=== PATIENT | female | born 1945 | race Caucasian/White ===

== ENCOUNTER 2020-06-18 06:25 | Outpatient (REF) | payer MEDICARE, SELFPAY ==
[2020-06-18 13:18] LABS: MANUAL DIFF FLAG NO
[2020-06-18 13:29] LABS: Basophils Absolute Auto 0.1 X10*3/uL (0.0-0.2); Basophils Percent Auto 0.9 % (0-2); Eosinophils Absolute Auto 0.2 X10*3/uL (0.0-0.4); Eosinophils Percent Auto 3.1 % (0-4); Hematocrit 39.1 % (37-47); Hemoglobin 12.7 g/dl (12.0-16.0); Imm Gran Abs Auto 0.02 X10*3/uL (0.00-0.03); Imm Gran Pct Auto 0.3 % (0.0-0.4); Lymphocytes Absolute Auto 2.6 X10*3/uL (1.2-4.9); Lymphocytes Percent Auto 36.5 % (20-40); Mean Corpuscular HGB Conc 32.5 g/dl (31.0-35.0); Mean Corpuscular Hemoglobin 29.9 pg (27.0-33.0); Mean Platelet Volume 10.3 fL (9.4-12.3); Monocytes Absolute Auto 0.6 X10*3/uL (0.1-1.2); Monocytes Percent Auto 8.2 % (2-11); Neutrophils Absolute Auto 3.6 X10*3/uL (2.0-8.3); Platelet Count 398 X10*3/uL (160-400); Red Blood Count 4.25 X10*6/uL (4.20-5.50); Red Cell Distribution Width 13.5 % (11.0-16.0)
[2020-06-18 14:29] LABS: Alanine Aminotransferase 11 U/L (0-31); Albumin Level 4.4 g/dL (3.5-5.0); Alkaline Phosphatase 81 U/L (39-117); Anion Gap 18 (12-20); Aspartate Amino Transferase 17 U/L (5-31); Bilirubin Total 0.4 mg/dL (0.0-1.0); Blood Urea Nitrogen 38 mg/dL (9-16); Calcium 9.2 mg/dL (8.4-10.2); Carbon Dioxide 22 mmol/L (22-29); Chloride 106 mmol/L (96-108); Cholesterol 205 mg/dL; Estimated Glomerular Filt Rate 44; Glucose Fasting 89 mg/dL (60-99); HDL Cholesterol 60 mg/dL; LDL Cholesterol Calculated 124 mg/dl; Potassium 4.8 mmol/l (3.3-5.1); Sodium 141 mmol/L (135-145); Total Protein 7.6 g/dL (6.5-8.0); Triglycerides 109 mg/dL
== END 2020-06-18 06:26 | disposition home or self-care (01) ==
LOC: HO.HMGCLDS 06:25
PROVIDERS: PCP Internal Medicine; Visit Provider Internal Medicine
DX: I10 Essential (primary) hypertension (principal); M54.2 Cervicalgia; J44.9 Chronic obstructive pulmonary disease, unspecified
CPT/HCPCS: 36415; 80053; 80061; 85025

== ENCOUNTER 2020-12-21 09:54 | Outpatient (REF) | payer MEDICARE, SELFPAY ==
--- NOTE | ~2020-12-21 | XR_ITS ---
EXAMINATION: XR SHOULDER, BILATERAL CLINICAL INFORMATION: Pain. COMPARISON: None TECHNIQUE: 3 views each shoulder. FINDINGS: LEFT SHOULDER: There is loss of glenohumeral joint space with exuberant osteophytosis. The AC joint appears intact. Minimal loss of AC joint is noted. No fracture seen. There is no soft tissue abnormality. RIGHT SHOULDER: There is mild loss of glenohumeral joint space with moderate exuberant osteophytosis. No visible acute fracture or dislocation. There is mild loss of right AC joint with periarticular spurring. XR/XR shoulder LT min 2V IMPRESSION: Hypertrophic osteophytosis bilateral shoulder joints. 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 There is no acute fracture or lytic process.
--- NOTE | ~2020-12-21 | XR_ITS ---
EXAMINATION: XR SHOULDER, BILATERAL CLINICAL INFORMATION: Pain. COMPARISON: None TECHNIQUE: 3 views each shoulder. FINDINGS: LEFT SHOULDER: There is loss of glenohumeral joint space with exuberant osteophytosis. The AC joint appears intact. Minimal loss of AC joint is noted. No fracture seen. There is no soft tissue abnormality. RIGHT SHOULDER: There is mild loss of glenohumeral joint space with moderate exuberant osteophytosis. No visible acute fracture or dislocation. There is mild loss of right AC joint with periarticular spurring. XR/XR shoulder RT min 2V IMPRESSION: Hypertrophic osteophytosis bilateral shoulder joints. 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 There is no acute fracture or lytic process.
[2020-12-21 11:34] LABS: Hematocrit 40.5 % (37-47); Hemoglobin 13.3 g/dl (12.0-16.0)
[2020-12-21 11:57] LABS: Alanine Aminotransferase 14 U/L (0-31); Albumin Level 4.9 g/dL (3.5-5.0); Alkaline Phosphatase 79 U/L (39-117); Anion Gap 20 (12-20); Aspartate Amino Transferase 21 U/L (5-31); Bilirubin Direct 0.2 mg/dL (0.0-0.5); Bilirubin Total 0.5 mg/dL (0.0-1.0); Blood Urea Nitrogen 36 mg/dL (9-16); Calcium 10.7 mg/dL (8.4-10.2); Carbon Dioxide 22 mmol/L (22-29); Chloride 105 mmol/L (96-108); Estimated Glomerular Filt Rate 44; Glucose Random 101 mg/dL (60-115); Potassium 4.3 mmol/L (3.3-5.1); Sodium 143 mmol/L (135-145); Total Protein 8.2 g/dL (6.5-8.0)
[2020-12-28 12:22] LABS: Vitamin D 25-OH, D2 <4 ng/mL; Vitamin D 25-OH, D3 90 ng/mL; Vitamin D 25-OH, Total 90 ng/mL (30-100)
== END 2020-12-21 09:55 | disposition home or self-care (01) ==
LOC: HO.HMGCX 09:54
PROVIDERS: PCP Internal Medicine; Visit Provider Internal Medicine
DX: Z00.01 Encounter for general adult medical examination with abnormal findings (principal); I10 Essential (primary) hypertension; J44.9 Chronic obstructive pulmonary disease, unspecified; L29.9 Pruritus, unspecified; M54.2 Cervicalgia; M25.511 Pain in right shoulder; M25.512 Pain in left shoulder; N28.9 Disorder of kidney and ureter, unspecified
CPT/HCPCS: 36415; 73030; 80053; 80076; 82248; 82306; 85014; 85018

== ENCOUNTER 2020-12-24 10:05 | Outpatient (REF) | payer MEDICARE, SELFPAY ==
--- NOTE | ~2020-12-24 | MR_ITS ---
MR CERVICAL SPINE WITHOUT CONTRAST CLINICAL INFORMATION: Arthrodesis status. COMPARISON: Cervical spine MRI 06/02/2016. TECHNIQUE: MRI of the cervical spine was obtained using routine sequences without contrast. FINDINGS: Straightening of the cervical lordosis. The vertebral body heights are maintained. Large anterior bridging osteophytes at the C4-T2 levels. Vertebral body heights are maintained. There is severe disc volume loss at C6-C7. Disc calcification at C5-C6 and C7-T1. There is no bone marrow edema. There are no acute fractures. The cervical arterial flow voids are maintained. Retropharyngeal course of the cervical internal carotid arteries bilaterally. Partially imaged intracranial compartment demonstrates cerebral volume loss and chronic microangiopathy. C1-C2: Redemonstrated advanced hypertrophic degenerative changes involving the right lateral atlantoaxial articulation resulting in severe right-sided foraminal encroachment at C1-C2. C2-C3: Posterior disc contour normal. Bilateral facet arthropathy, greater on the right-sided uncovertebral joint spurring resulting in mild right-sided foraminal encroachment. C3-C4: Mild anterior subluxation. Advanced uncovertebral joint hypertrophy and hypertrophic facet arthropathy result in severe bilateral foraminal stenosis which is unchanged. No central canal stenosis. Stable appearing chronic myelomalacia throughout the cord at this level. C4-C5: Mild anterior subluxation. Disc osteophyte mildly narrows the central canal. Advanced uncovertebral joint hypertrophy and hypertrophic facet arthropathy result in stable moderate to severe bilateral foraminal stenosis. C5-C6: Disc osteophyte without central canal stenosis. Advanced uncovertebral joint hypertrophy and hypertrophic facet arthropathy result in stable moderate bilateral foraminal stenosis. C6-C7: Disc osteophyte without central canal stenosis. Advanced uncovertebral joint hypertrophy and hypertrophic facet arthropathy result in severe left and moderate right foraminal stenosis. C7-T1: Posterior disc contour is normal. Advanced bilateral facet arthropathy resulting in mild bilateral foraminal encroachment that is unchanged. MR/MR cervical spine wo con IMPRESSION: - Stable appearing advanced multilevel cervical spondylosis with advanced spondylitic changes resulting in varying degrees of moderate to severe foraminal stenosis throughout the cervical spine as described. No severe central canal stenosis within the cervical spine. - Redemonstrated advanced hypertrophic degenerative changes involving the right lateral atlantoaxial articulation resulting in severe right-sided foraminal encroachment at C1-C2. - Stable appearing chronic myelomalacia throughout the cervical spinal cord at C3-C4. No new cord signal changes. - Diffuse idiopathic skeletal hyperostosis throughout the cervicothoracic spine is again noted. - Retropharyngeal course of the cervical internal carotid arteries bilaterally.
== END 2020-12-24 10:06 | disposition home or self-care (01) ==
LOC: HO.MRI 10:05
PROVIDERS: Visit Provider Internal Medicine
DX: R26.89 Other abnormalities of gait and mobility (principal); Z98.1 Arthrodesis status
CPT/HCPCS: 72141

== ENCOUNTER → 2020-12-28 09:15 | Outpatient (BNVA) | payer MEDICARE, SELFPAY | PROVIDERS: PCP Internal Medicine; Visit Provider Physician Assistant | DX: M19.011 Primary osteoarthritis, right shoulder (principal); M19.012 Primary osteoarthritis, left shoulder | CPT/HCPCS: 99202 ==

== ENCOUNTER → 2021-01-11 11:01 | Outpatient (BNVA) | payer MEDICARE, SELFPAY | PROVIDERS: PCP Internal Medicine; Visit Provider Internal Medicine | DX: J44.9 Chronic obstructive pulmonary disease, unspecified (principal); Z79.899 Other long term (current) drug therapy | CPT/HCPCS: 99212 ==

== ENCOUNTER → 2021-01-13 09:23 | Outpatient (BNVA) | payer MEDICARE, SELFPAY | PROVIDERS: PCP Internal Medicine; Visit Provider Orthopaedic Surgery | DX: M19.011 Primary osteoarthritis, right shoulder (principal); M19.012 Primary osteoarthritis, left shoulder; J44.9 Chronic obstructive pulmonary disease, unspecified | CPT/HCPCS: 99212 ==

== ENCOUNTER 2021-04-04 13:40 | Outpatient (REF) | payer MEDICARE, SELFPAY ==
--- NOTE | ~2021-04-04 | XR_ITS ---
EXAMINATION: XR SOFT TISSUE NECK CLINICAL INDICATION: Acute pharyngitis. COMPARISON: None TECHNIQUE: 2 views of the soft tissue neck were obtained. FINDINGS: The airway is widely patent. The prevertebral and paravertebral soft tissues are normal. No soft tissue mass seen in the pharyngeal region either. There are degenerative disc changes and spondylosis throughout cervical spine. XR/XR soft tissue neck IMPRESSION: Widely patent airway. No soft tissue mass seen. The prevertebral soft tissues are normal.
== END 2021-04-04 13:41 | disposition home or self-care (01) ==
LOC: HO.HMGCX 13:40
PROVIDERS: PCP Internal Medicine; Visit Provider Hospitalist
DX: J02.9 Acute pharyngitis, unspecified (principal)
CPT/HCPCS: 70360

== ENCOUNTER 2021-04-13 06:21 | Inpatient (IN) | payer MEDICARE, SELFPAY ==
[2021-04-13] VITALS (8 sets, daily range): BP systolic 94–167; BP diastolic 56–83; PULSE 99–116; RESP 16–20; TEMP 36.1–36.9; O2SAT 95–100; BMI 36.8; BMI 19.1
--- NOTE | ~2021-04-13 | XR_ITS ---
EXAMINATION: PORTABLE CHEST 1 VIEW CLINICAL INFORMATION: shortness of breath . COMPARISON: Prior studies including the 06/02/2016 chest x-ray and the 12/21/2020 shoulder films. TECHNIQUE: Portable frontal view of the chest was obtained. FINDINGS: The lungs are well expanded. No focal infiltrate, effusion, edema, or pneumothorax. There is abnormal fullness in the left suprahilar region. This is a subtle finding but does appear to be more prominent compared to the 2016 chest x-ray. Underlying mass lesion in this location cannot be excluded. No acute bony abnormality seen. XR/XR chest 1V IMPRESSION: There is abnormal soft tissue fullness in the left suprahilar region abutting the aortic arch. Although this could be artifactual in nature an underlying mass lesion would be suspected. In this setting, dedicated CT scan of the chest would be recommended to evaluate this subtle finding further. This critical result was discussed with Dr. Alatorre at 04/13/2021 7:59 AM and it was ascertained that the content and urgency of the report was understood at the time of direct communication.
--- NOTE | ~2021-04-13 | CT_ITS ---
EXAMINATION: CT SOFT TISSUE NECK WITH CONTRAST CLINICAL INFORMATION: Sensation of a mass. Dyspnea. COMPARISON: The soft tissues of the neck x-ray March 2021. TECHNIQUE: Following the intravenous administration of 100 mL of Omnipaque 350 intravenous contrast, helical imaging was performed in the axial plane with generation of coronal and sagittal reformatted images. This CT examination was performed using dose optimization techniques as appropriate, variously including the following: *Automated exposure control *Adjustment of mA and/or kV according to patient size (this includes techniques or standardized protocols for targeted exams where dose is matched to indication/reason for exam; i.e. extremities or head) *Use of iterative reconstruction technique DLP: 421 mGy-cm. FINDINGS: The nasopharynx, oropharynx and hypopharynx are normal. The larynx is normal. The thyroid gland is normal. Salivary glands are normal. There are no enlarged lymph nodes seen. Visualized intracranial structures are normal. The orbits are normal. Paranasal sinuses, mastoid air cells and middle ears are clear. Vascular structures are normal. There is evidence of emphysema. There is a 1.2 cm spiculated left upper lobe nodule. There are enlarged mediastinal and left hilar lymph nodes. There are degenerative changes of the cervical spine. There are degenerative changes of the right shoulder. CT/CT soft tissue neck w con IMPRESSION: Emphysema, spiculated left upper lobe nodule and left hilar and mediastinal lymphadenopathy. Degenerative changes of the spine and right shoulder.
--- NOTE | ~2021-04-13 | CT_ITS ---
EXAMINATION: CT ANGIOGRAM OF THE CHEST WITH AND WITHOUT CONTRAST (CT PULMONARY ANGIOGRAM FOR PE) CLINICAL INFORMATION: Intermediate probable PE on VQ, need more defined exam. Tachycardia and dyspnea. COMPARISON: Previous chest CT with IV contrast from yesterday, nuclear medicine perfusion scan, chest x-ray and bilateral leg ultrasound from yesterday. TECHNIQUE: Prior to contrast administration, noncontrast localization images were obtained. Subsequently, multidetector volumetric imaging was performed from the thoracic inlet to below the diaphragms following the administration of 130 mL Omnipaque 350 intravenous contrast. Delayed images were performed. No contrast reaction reported. Sagittal, coronal, and MIP oblique sagittal reformatted images were obtained on the CT workstation, uploaded to PACS, and reviewed. This CT examination was performed using dose optimization techniques as appropriate, variously including the following: *Automated exposure control *Adjustment of mA and/or kV according to patient size (this includes techniques or standardized protocols for targeted exams where dose is matched to indication/reason for exam; i.e. extremities or head) *Use of iterative reconstruction technique Total exam dose-length product 222 mGy-cm FINDINGS: QUALITY OF STUDY/CONTRAST BOLUS: Satisfactory. PULMONARY ARTERIES: There is no large or central pulmonary embolism. There is a soft tissue mass encasing the distal left pulmonary artery, and left upper lobe and left lower lobe pulmonary arteries. The left upper and left lower lobe pulmonary artery branches appear narrowed. There is no opacification of the segmental left upper lobe pulmonary arteries on the current exam, however, these are better seen on yesterday's non-CTA exam. Left lower lobe pulmonary artery branches are patent. No evidence of right lung pulmonary embolism is seen. THORACIC AORTA: No aneurysm or dissection. LUNG: There is evidence of emphysema. There is a 1 cm spiculated left upper lobe nodule and surrounding smaller satellite nodules. The lungs are otherwise clear. PLEURA: No pleural effusion or pneumothorax. MEDIASTINUM: The heart size is normal. There is no pericardial effusion. There is extensive left-sided mediastinal and hilar lymphadenopathy similar to yesterday's exam abutting the great vessels, aortic arch, and left pulmonary arteries. CHEST WALL/AXILLA: No axillary or internal mammary lymphadenopathy. OSSEOUS STRUCTURES: There are degenerative changes of the spine. UPPER ABDOMEN: There is a cyst in the upper pole of the left kidney. The questioned right lobe liver lesion is not appreciated. No reflux of contrast into the hepatic veins to suggest elevated right heart pressures. CT/CT angio chest PE protocol IMPRESSION: There is encasement of the distal left pulmonary artery and left upper and left lower lobe pulmonary arteries by adenopathy/mass. The left upper lobe pulmonary arteries are not opacified on the current exam. These are better seen on yesterday's non-CTA and later images. There may be tumor involvement of the pulmonary arteries in the left upper lobe. No definite pulmonary embolism is seen.
--- NOTE | ~2021-04-13 | NM_ITS ---
EXAMINATION: PULMONARY PERFUSION STUDY CLINICAL INFORMATION: Tachycardia, dyspnea, evaluate for pulmonary embolism. COMPARISON: No previous lung scan is available for comparison. CT of the chest performed with intravenous contrast dated 04/13/2021, the same date as this lung scan is available for comparison. A radiograph the chest also dated 04/13/2021 is available for comparison. TECHNIQUE: Following the intravenous administration of 4.0 mCi Tc-99m MAA an 8-view perfusion study was performed using a dual detector gamma scintillation camera. No ventilation images were obtained. FINDINGS: Perfusion images: There is diffusely diminished activity in the left lung with almost absent activity present in the apical posterior segment of the left upper lobe. There is also markedly diminished activity in the basilar segments of the left lower lobe but preservation of most of the activity in the superior segment of the left lower lobe although this is less intense than the activity in the right lung. The contemporaneous CT scan of the chest shows diffuse emphysema, a spiculated left upper lobe pulmonary nodule and extensive predominantly left-sided mediastinal lymphadenopathy. NM/NM pul perfusion IMPRESSION: Intermediate probability of pulmonary embolism. Perfusion abnormalities are extensive in the left lung, but because of both the presence of the left upper lobe spiculated nodule and extensive mediastinal lymphadenopathy which causes some compression of the left sided proximal pulmonary arteries, these perfusion abnormalities may be due to either of the latter, but coexisting pulmonary emboli cannot be ruled out. No obvious pulmonary emboli are visualized on the contemporaneous CT scan, but this may not have been performed as a pulmonary embolism study.
--- NOTE | ~2021-04-13 | CT_ITS ---
EXAMINATION: CT CHEST WITH CONTRAST CLINICAL INFORMATION: Evaluate for mass. Dyspnea. COMPARISON: Previous chest x-ray from earlier the same day TECHNIQUE: Multidetector volumetric CT imaging of the chest was obtained after the administration of 100 mL of Omnipaque 350 intravenous contrast without immediate adverse reactions. Axial MIP volume rendering provided. Sagittal and coronal reformatted images were obtained. This CT examination was performed using dose optimization techniques as appropriate, variously including the following: *Automated exposure control *Adjustment of mA and/or kV according to patient size (this includes techniques or standardized protocols for targeted exams where dose is matched to indication/reason for exam; i.e. extremities or head) *Use of iterative reconstruction technique DLP: 294 mGy-cm FINDINGS: LUNGS: There is evidence of emphysema. There is a 1 cm spiculated left upper lobe nodule, axial image 60 series 9. There are adjacent smaller satellite nodules. There are small spicules that extend to the pleural surface and mild adjacent pleural thickening. There is volume loss to the left upper lobe. MEDIASTINUM: There are enlarged mediastinal and hilar lymph nodes. Largest roberto mass abuts the aortic arch and measures 1.8 x 6.8 cm in transverse and AP dimension. This is continuous with abnormal soft tissue/likely roberto mass in the left pulmonary hilum that measures approximately 5 x 5 x 6 cm. There is secondary narrowing of the left upper lobe and left lower lobe pulmonary arteries. There is some narrowing of the left upper pulmonary veins. There are smaller lymph nodes seen in the vascular space adjacent to the right brachiocephalic and left common carotid arteries measuring 1 cm and adjacent to the left common carotid and left subclavian artery measuring 8 mm. There is a small lymph node seen more superiorly posterior to the left carotid artery and adjacent to the left vertebral artery that measures 5 mm. There is a small precarinal lymph node that measures 5 mm. The heart does not appear enlarged. There is no pericardial effusion. The thoracic aorta is normal in caliber. There is evidence of atherosclerotic disease. There is calcification and mild narrowing at the origin of the great vessels. PLEURA: There is no pleural effusion. No pleural mass or thickening. AXILLA: No chest wall mass or enlarged axillary lymph nodes are seen. UPPER ABDOMEN: There is question of a 1 cm peripheral low-attenuation lesion in the right lobe of the liver axial image 59 series 7. This is adjacent to a rib and it is possible this is artifactual due to artifact from the rib. There is a small calcification high in the dome of the liver. There is a 1.8 cm cyst in the left kidney. OSSEOUS STRUCTURES: There are degenerative changes of the spine and shoulder joints. CT/CT chest w con IMPRESSION: Emphysema. Left upper lobe volume loss. 1 cm spiculated left upper lobe nodule neoplasm. Enlarged left hilar and mediastinal lymph nodes and narrowing of the left pulmonary arteries and veins. Question small liver lesion. Findings are suspicious for primary lung neoplasm, in particular small cell cancer.
--- NOTE | ~2021-04-13 | US_ITS ---
EXAMINATION: US VENOUS ULTRASOUND WITH DOPPLER LOWER EXTREMITY, BILATERAL CLINICAL INFORMATION: Pulmonary embolism. Leg pain. COMPARISON: None TECHNIQUE: Ultrasound of the deep veins is performed from the hip to the calf with compression sonography and color and pulse Doppler assessment. Spectral analysis with color-flow imaging is performed. FINDINGS: RIGHT: There is normal venous compression and respiratory variation and augmented flow. The visualized common femoral vein, superficial femoral vein, profunda femoral vein, popliteal vein, and the trifurcation region shows no evidence of deep venous thrombosis. There is no significant popliteal fossa cyst. LEFT: There is normal venous compression and respiratory variation and augmented flow. The visualized common femoral vein, superficial femoral vein, profunda femoral vein, popliteal vein, and the trifurcation region shows no evidence of deep venous thrombosis. There is no significant popliteal fossa cyst. US/US venous duplex LE BI IMPRESSION: No DVT demonstrated in the bilateral lower extremity.
--- NOTE | 2021-04-13 06:36 | ED.SOB ---
HPI - SOB/Dyspnea General Chief Complaint: General Medical Stated Complaint: SOB Time Seen by Provider: 04/13/21 06:36 Source: patient Mode of arrival: ambulatory Limitations: no limitations History of Present Illness MD elicited complaint: shortness of breath (something is stuck in her throat) Pertinent past history: COPD Onset (ago): week(s) (2) Context: other (had xray done for mass feeling - states it was negative) Timing: intermittent Severity: moderate Exacerbating factors: nothing Relieving factors: nothing Known history of: COPD Associated symptoms: denies other symptoms Treatment prior to arrival: none Related Data Home Medications Medication Instructions Recorded Confirmed albuterol sulfate 90 mcg/actuation 2 puff INHALATION Q4H PRN 04/13/21 04/13/21 aerosol inhaler (ProAir HFA) calcium carbonate 200 mg calcium 1 tab PO DAILY 04/13/21 04/13/21 (500 mg)-vitamin D3 400 unit tablet Previous Rx's Medication Instructions Recorded irbesartan 300 1 tab PO DAILY 90 Days #90 tab 01/17/21 mg-hydrochlorothiazide 12.5 mg tablet budesonide-formoterol HFA 160 2 puff PO BID #10.2 g 03/17/21 mcg-4.5 mcg/actuation aerosol inhaler (Symbicort) tizanidine 2 mg tablet 2 mg PO DAILY PRN #90 tab 03/18/21 tramadol 200 mg tablet,extended 200 mg PO DAILY 90 Days #90 tab 03/18/21 release 24 hr tiotropium bromide 18 mcg capsule 1 cap INHALATION DAILY #30 cap 04/08/21 with inhalation device (Spiriva with HandiHaler) Allergies Allergy/AdvReac Type Severity Reaction Status Date / Time No Known Allergies Allergy Verified 03/18/21 11:55 Review of Systems Review of Systems: Constitutional : No Fever, No Chills ENT/Mouth : No sore throat, No Rhinorrhea, No Swallowing Difficulty, pos mass like feeling Eyes: No Eye Pain, No Swelling, No Redness Cardiovascular : No Chest Pain, positive SOB, No Orthopnea, no Edema Respiratory : No Cough, No Sputum, No Wheezing, positive dyspnea Gastrointestinal : No Nausea, No Vomiting, No Diarrhea, No abdominal Pain, No Hematochezia, No Melena Genitourinary : No Dysuria, No Urinary Frequency, No Hematuria Musculoskeletal : No joint pain, No Myalgias Skin : No Skin Lesions, No rash Neuro : No Weakness, No Numbness, No Dizziness, No Headache Psych : No Anxiety/Panic, No Depression Heme/Lymph: No Bruising, No Lymphadenopathy Endocrine : No Polyuria, No Polydipsia All other systems reviewed and are negative [facility] Past Medical History Attestation statement: The following information was validated with the patient. Medical History Cervicalgia COPD, severe Hypertension, essential Nephropathy Surgical History History of cervical discectomy History of surgery Family History Family History Father No problems noted. Mother No problems noted. Brother No problems noted. Brother No problems noted. Sister No problems noted. Daughter No problems noted. Daughter No problems noted. Son No problems noted. Son No problems noted. Son No problems noted. Son No problems noted. Son No problems noted. Social History Social History Housing: Apartment Alcohol intake: current Alcohol intake frequency: a few times a month Patient Tobacco Use Status: Former Tobacco user Use of substances other than those prescribed or required for medical reasons: No Advance Directives: No Advance Directives Information Provided: No Current occupational status: retired Physical Exam Vital Signs: Vital Signs: Last Vital Signs Temp 98.3 F 04/13/21 12:28 Pulse 106 H 04/13/21 12:28 Resp 18 04/13/21 12:28 BP 153/72 H 04/13/21 12:28 Pulse Ox 97 04/13/21 12:28 Oxygen Flow Rate 3 04/13/21 06:35 Body Mass Index 19.1 Appearance: Alert. Oriented X3. No acute distress. Anxious Eyes: Pupils equal, round and reactive to light. ENT: Pharynx normal. no mass seen, tolerating secretions, no stridor Neck: Normal inspection. Neck supple. CVS: Normal heart rate and rhythm. Pulses normal. Respiratory: No respiratory distress. Breath sounds slightly diminished. Abdomen: Soft and non-tender. Skin: Skin warm and dry. Normal skin color. Normal skin turgor. Extremities: No lower extremity edema. No calf ttp Neuro: Oriented X 3. No motor deficit. No sensory deficit. Course Course Course Narrative: persistently tachycardic VQ scan ordered lactic acidosis likely due to albuterol use [employer] and not infection or severe sepsis intermediate VQ scan, will give dose of lovenos admit overnight and repeat CTA in AM fo PE given persistent tachycardia with new upper lung mass and no other source MDM - SOB/Dyspnea MDM Narrative Medical decision making narrative: 75 yo female with hx of COPD here with mass like feeling in throat x 2 weeks that is intermittent. Able to eat without issue, just woke up one day like this. At this time 100% on RA will obtain basic labs, CT neck soft tissue for mass. Dispo per results and findings. Lab Data Result diagrams: 04/13/21 06:30 04/13/21 06:30 Labs: Lab Results 04/13/21 04/13/21 04/13/21 Range/Units 06:30 06:30 06:30 WBC 9.5 (4.8-10.8) X10*3/uL RBC 4.25 (4.20-5.50) X10*6/uL Hgb 13.7 (12.0-16.0) g/dl Hct 41.0 (37-47) % MCV 96.5 (80-98) fL MCH 32.2 (27.0-33.0) pg MCHC 33.4 (31.0-35.0) g/dl RDW 13.7 (11.0-16.0) % Plt Count 413 H (160-400) X10*3/uL MPV 10.1 (9.4-12.3) fL Immature Gran % (Auto) 0.2 (0.0-0.4) % Neut % (Auto) 62.1 (45-73) % Lymph % (Auto) 26.5 (20-40) % Citrus % (Auto) 8.5 (2-11) % Eos % (Auto) 2.1 (0-4) % Baso % (Auto) 0.6 (0-2) % Lymph # (Auto) 2.5 (1.2-4.9) X10*3/uL [place] # (Auto) 0.8 (0.1-1.2) X10*3/uL Eos # (Auto) 0.2 (0.0-0.4) X10*3/uL Baso # (Auto) 0.1 (0.0-0.2) X10*3/uL Abs Immat Gran (auto) 0.02 (0.00-0.03) X10*3/uL Absolute Neuts (auto) 5.9 (2.0-8.3) X10*3/uL Absolute Nucleated RBC 0.000 (0.0-0.012) X10*3/uL Nucleated RBC % (auto) 0.0 (0.0-0.2) /100WBC Sodium 139 (135-145) mmol/L Potassium 4.3 (3.3-5.1) mmol/L Chloride 104 (96-108) mmol/L Carbon Dioxide 20 L (22-29) mmol/L Anion Gap 19 (12-20) BUN 34 H (9-16) mg/dL Creatinine 1.39 (0.5-1.4) mg/dL Estim Creat Clear Calc 50.7 Estimated GFR 37 Random Glucose 141 H D (60-115) mg/dL Lactic Acid Calcium 10.3 H (8.4-10.2) mg/dL Troponin I High Sens 4.7 (<3.5-17.0) ng/L B-Natriuretic Peptide 37 (<100) pg/mL Urine Color Urine Appearance Urine pH (5.0-8.0) Ur Specific [place] (1.005-1.025) Urine Protein (NEG-TRACE) MG/DL Urine Glucose (UA) (NEG) MG/DL Urine Ketones (NEG) MG/DL Urine Blood (NEG) Urine Nitrite (NEG) Ur Leukocyte Esterase (NEG) Urine RBC (0) /HPF Urine WBC (0-4) /HPF Ur Squamous Epith Cells /LPF Urine Bacteria /LPF Coronavirus (PCR) (Negative) Influenza Type A (PCR) (Negative) Influenza Type B (PCR) (Negative) RSV RNA Qual (PCR) (Negative) 04/13/21 04/13/21 04/13/21 Range/Units 07:06 09:25 10:53 WBC (4.8-10.8) X10*3/uL RBC (4.20-5.50) X10*6/uL Hgb (12.0-16.0) g/dl Hct (37-47) % MCV (80-98) fL MCH (27.0-33.0) pg MCHC (31.0-35.0) g/dl RDW (11.0-16.0) % Plt Count (160-400) X10*3/uL MPV (9.4-12.3) fL Immature Gran % (Auto) (0.0-0.4) % Neut % (Auto) (45-73) % Lymph % (Auto) (20-40) % Citrus % (Auto) (2-11) % Eos % (Auto) (0-4) % Baso % (Auto) (0-2) % Lymph # (Auto) (1.2-4.9) X10*3/uL [place] # (Auto) (0.1-1.2) X10*3/uL Eos # (Auto) (0.0-0.4) X10*3/uL Baso # (Auto) (0.0-0.2) X10*3/uL Abs Immat Gran (auto) (0.00-0.03) X10*3/uL Absolute Neuts (auto) (2.0-8.3) X10*3/uL Absolute Nucleated RBC (0.0-0.012) X10*3/uL Nucleated RBC % (auto) (0.0-0.2) /100WBC Sodium (135-145) mmol/L Potassium (3.3-5.1) mmol/L Chloride (96-108) mmol/L Carbon Dioxide (22-29) mmol/L Anion Gap (12-20) BUN (9-16) mg/dL Creatinine (0.5-1.4) mg/dL Estim Creat Clear Calc Estimated GFR Random Glucose (60-115) mg/dL Lactic Acid Cancelled Calcium (8.4-10.2) mg/dL Troponin I High Sens (<3.5-17.0) ng/L B-Natriuretic Peptide (<100) pg/mL Urine Color YELLOW Urine Appearance CLEAR Urine pH 5.5 (5.0-8.0) Ur Specific [place] 1.010 (1.005-1.025) Urine Protein NEG (NEG-TRACE) MG/DL Urine Glucose (UA) NEG (NEG) MG/DL Urine Ketones NEG (NEG) MG/DL Urine Blood NEG (NEG) Urine Nitrite NEG (NEG) Ur Leukocyte Esterase TRACE H (NEG) Urine RBC 0-2 (0) /HPF Urine WBC 1-4 (0-4) /HPF Ur Squamous Epith Cells TRACE /LPF Urine Bacteria TRACE /LPF Coronavirus (PCR) NEGATIVE (Negative) Influenza Type A (PCR) NEGATIVE (Negative) Influenza Type B (PCR) NEGATIVE (Negative) RSV RNA Qual (PCR) NEGATIVE (Negative) 04/13/21 Range/Units 10:53 WBC (4.8-10.8) X10*3/uL RBC (4.20-5.50) X10*6/uL Hgb (12.0-16.0) g/dl Hct (37-47) % MCV (80-98) fL MCH (27.0-33.0) pg MCHC (31.0-35.0) g/dl RDW (11.0-16.0) % Plt Count (160-400) X10*3/uL MPV (9.4-12.3) fL Immature Gran % (Auto) (0.0-0.4) % Neut % (Auto) (45-73) % Lymph % (Auto) (20-40) % Citrus % (Auto) (2-11) % Eos % (Auto) (0-4) % Baso % (Auto) (0-2) % Lymph # (Auto) (1.2-4.9) X10*3/uL [place] # (Auto) (0.1-1.2) X10*3/uL Eos # (Auto) (0.0-0.4) X10*3/uL Baso # (Auto) (0.0-0.2) X10*3/uL Abs Immat Gran (auto) (0.00-0.03) X10*3/uL Absolute Neuts (auto) (2.0-8.3) X10*3/uL Absolute Nucleated RBC (0.0-0.012) X10*3/uL Nucleated RBC % (auto) (0.0-0.2) /100WBC Sodium (135-145) mmol/L Potassium (3.3-5.1) mmol/L Chloride (96-108) mmol/L Carbon Dioxide (22-29) mmol/L Anion Gap (12-20) BUN (9-16) mg/dL Creatinine (0.5-1.4) mg/dL Estim Creat Clear Calc Estimated GFR Random Glucose (60-115) mg/dL Lactic Acid 2.3 H* Calcium (8.4-10.2) mg/dL Troponin I High Sens (<3.5-17.0) ng/L B-Natriuretic Peptide (<100) pg/mL Urine Color Urine Appearance Urine pH (5.0-8.0) Ur Specific [place] (1.005-1.025) Urine Protein (NEG-TRACE) MG/DL Urine Glucose (UA) (NEG) MG/DL Urine Ketones (NEG) MG/DL Urine Blood (NEG) Urine Nitrite (NEG) Ur Leukocyte Esterase (NEG) Urine RBC (0) /HPF Urine WBC (0-4) /HPF Ur Squamous Epith Cells /LPF Urine Bacteria /LPF Coronavirus (PCR) (Negative) Influenza Type A (PCR) (Negative) Influenza Type B (PCR) (Negative) RSV RNA Qual (PCR) (Negative) ECG Data Attestation: I personally reviewed and interpreted this ECG as follows: ECG interpretation date: 04/13/21 ECG interpretation time: 06:57 Interpretation: Rate: 109 Rhythm: sinus tachycardia [place]: normal Normal P waves. Normal ARUN. Normal QRS complex. ST T wave : no STEVE, nonspecific qTC: normal prior studies: no acute ischemia The study has been interpreted contemporaneously by me. . Discharge Plan Discharge Clinical Impression: Acute dyspnea, Tachycardia, Mass of left lung, Acidosis, lactic Patient Disposition: Admitted As Inpatient
--- NOTE | 2021-04-13 06:39 | ECG_ITS ---
Test Reason : SOB Blood Pressure : / mmHG Vent. Rate : 109 BPM Atrial Rate : 109 BPM P-R Int : 134 ms QRS Dur : 080 ms QT Int : 324 ms P-R-T Axes : 086 010 097 degrees QTc Int : 436 ms Sinus tachycardia Nonspecific ST and T wave abnormality Abnormal ECG When compared with ECG of 19-SEP-2014 05:55, Criteria for Septal infarct are no longer Present Nonspecific T wave abnormality no longer evident in Inferior leads Referred By: Generic ED Physician Electronically Signed By:LOREN TINEO
[2021-04-13 08:05] LABS: Influenza A PCR NEGATIVE (Negative); Influenza B PCR NEGATIVE (Negative); Resp Syncy Virus RNA Qual PCR NEGATIVE (Negative); SARS COV2 PCR INHOUSE NEGATIVE (Negative)
[2021-04-13 08:18] LABS: MANUAL DIFF FLAG NO
[2021-04-13 08:19] LABS: Basophils Absolute Auto 0.1 X10*3/uL (0.0-0.2); Basophils Percent Auto 0.6 % (0-2); Eosinophils Absolute Auto 0.2 X10*3/uL (0.0-0.4); Eosinophils Percent Auto 2.1 % (0-4); Hemoglobin 13.7 g/dl (12.0-16.0); Imm Gran Abs Auto 0.02 X10*3/uL (0.00-0.03); Imm Gran Pct Auto 0.2 % (0.0-0.4); Lymphocytes Absolute Auto 2.5 X10*3/uL (1.2-4.9); Lymphocytes Percent Auto 26.5 % (20-40); Mean Corpuscular HGB Conc 33.4 g/dl (31.0-35.0); Mean Corpuscular Hemoglobin 32.2 pg (27.0-33.0); Mean Corpuscular Volume 96.5 fL (80-98); Mean Platelet Volume 10.1 fL (9.4-12.3); Monocytes Absolute Auto 0.8 X10*3/uL (0.1-1.2); Monocytes Percent Auto 8.5 % (2-11); Neutrophils Absolute Auto 5.9 X10*3/uL (2.0-8.3); Neutrophils Percent Auto 62.1 % (45-73); Platelet Count 413 X10*3/uL (160-400); Red Blood Count 4.25 X10*6/uL (4.20-5.50); Red Cell Distribution Width 13.7 % (11.0-16.0); White Blood Count 9.5 X10*3/uL (4.8-10.8)
[2021-04-13 08:31] LABS: Anion Gap 19 (12-20); Blood Urea Nitrogen 34 mg/dL (9-16); Calcium 10.3 mg/dL (8.4-10.2); Carbon Dioxide 20 mmol/L (22-29); Chloride 104 mmol/L (96-108); Creatinine Clr Calc Pharmacy 50.7; Estimated Glomerular Filt Rate 37; Glucose Random 141 mg/dL (60-115); Potassium 4.3 mmol/L (3.3-5.1); Sodium 139 mmol/L (135-145)
[2021-04-13 08:38] LABS: B Type Natriuretic Peptide 37 pg/mL (<100); Troponin-I High Sensitivity 4.7 ng/L (<3.5-17.0)
[2021-04-13 09:32] LABS: Appearance Urine CLEAR; Color Urine YELLOW; Glucose Urine UA NEG (NEG); Leukocyte Esterase Urine TRACE (NEG); Nitrite Urine NEG (NEG); PH 5.5 (5.0-8.0); UACC Culture Trigger YES; Urine Blood NEG (NEG); Urine Ketones NEG (NEG); Urine Protein NEG (NEG-TRACE)
[2021-04-13 09:50] LABS: Bacteria Urine TRACE /LPF; RBC Urine 0-2 /HPF (0); Squamous Epithelial Cell Urine TRACE /LPF
[2021-04-13] MEDS: iohexoL 350 MG/ML 100 ML INFUS..BTL IV (09:58)
[2021-04-13 11:32] LABS: Lactic Acid 2.3 mmol/L (0.5-2.0)
[2021-04-13] MEDS: 0.9 % Sodium Chloride 500 ML IV (12:28)
[2021-04-13 12:59] LABS: Reflex Lactate? Lactic Acid Added
[2021-04-13] MEDS: Enoxaparin Sodium 100 MG/ML SYRINGE 62 MG SUBCUT (13:49)
[2021-04-13 13:58] LABS: Prothrombin Time 10.8 SEC (9.9-13.0)
[2021-04-13 14:01] LABS: Partial Thromboplastin Time 25.3 SEC (24.1-38.0)
[2021-04-13 14:07] LABS: ~Lactic Acid-LAB USE ONLY 1.6 mmol/L (0.5-2.0)
--- NOTE | 2021-04-13 15:19 | P.HPHOSP_ITS ---
History of Present Illness Date of Service: 04/13/21 <Elvia Lara NP - Last Filed: 04/13/21 16:38> Chief Complaint: Shortness of breath <Elvia Lara NP - Last Filed: 04/13/21 16:38> 75 year old women presenting with increased shortness of breath. She had been having some complaints of feeling dose something stuck in her throat over the last 2 weeks or so. She had a soft tissue x-ray of the neck on 04/04 which showed no soft tissue mass. Initially she was noted to have an elevated lactic acid of 2.3 however this did come down to 1.6, coronavirus negative due to the shortness of breath she had V/Q scan which showed intermediate probability of pulmonary embolism. CT CN showed emphysema with lap left upper lobe volume mass with a 1 cm spiculated left upper lobe nodule, enlarged left hilar and mediastinal lymph nodes and narrowing of the left pulmonary arteries and veins with question small liver lesions finding suspicious for primary lung neoplasm in particular small cell cancer. She reported a 10lbs elvin loss over 3 months. She was given therapeutic Lovenox and IV fluids. She will be admitted for further management and treatment of COPD and new lung mass. <Elvia Lara NP - Last Filed: 04/13/21 16:38> Review of Systems Review of Systems: Denies any recent fever chills or decrease in appetite respiratory See HPI cardiovascular Denies chest pain gastrointestinal denies any dysphagia abdominal pain nausea vomiting or diarrhea genitourinary denies any dysuria frequency or hematuria musculoskeletal denies any joint pain or swelling neuropsych denies any weakness or seizures all other systems reviewed are negative <Elvia Lara NP - Last Filed: 04/13/21 16:38> [facility] Medical History: Medical History Cervicalgia COPD, severe Hypertension, essential Nephropathy <Elvia Lara NP - Last Filed: 04/13/21 16:38> Family History: Family History Father No problems noted. Mother No problems noted. Brother No problems noted. Brother No problems noted. Sister No problems noted. Daughter No problems noted. Daughter No problems noted. Son No problems noted. Son No problems noted. Son No problems noted. Son No problems noted. Son No problems noted. <Elvia Lara NP - Last Filed: 04/13/21 16:38> Surgical History: Surgical History History of cervical discectomy History of surgery <Elvia Lara NP - Last Filed: 04/13/21 16:38> Social History: Social History Household Members: Spouse Housing: Homeless Housing Other:: duplex Do you presently have visiting nurse or other home services: No (roommate helps out) Alcohol intake: current Alcohol intake frequency: a few times a month Patient Tobacco Use Status: Former Tobacco user Quit Date: 13 yrs ago Tobacco use type: Cigarette Advance Directives Date on File: 04/13/21 service: No Current occupational status: retired <Elvia Lara NP - Last Filed: 04/13/21 16:38> Meds Allergies/Adverse reactions: Allergies Allergy/AdvReac Type Severity Reaction Status Date / Time No Known Allergies Allergy Verified 04/22/21 15:14 <Elvia Lara NP - Last Filed: 04/13/21 16:38> Active Medications: Current Medications Generic Name Dose Route Start Last Admin Trade Name Drea PRN Reason Stop Dose Admin Pharmacy Consult 1 each 04/13/21 13:15 Consult Rx Perform Med Rec MISCELLANE ONCE PRN Consult order <Elvia Lara NP - Last Filed: 04/13/21 16:38> Home medications: Home Medications Medication Instructions Recorded Confirmed Last Taken Type albuterol sulfate 90 mcg/actuation 2 puff INHALATION Q4H PRN 04/13/21 04/22/21 Unknown History aerosol inhaler (ProAir HFA) calcium carbonate 200 mg calcium 1 tab PO DAILY 04/13/21 04/22/21 Unknown History (500 mg)-vitamin D3 400 unit tablet <Elvia Lara NP - Last Filed: 04/13/21 16:38> Physical Exam Vital Signs and Narrative: Vital Signs: Last Vital Signs Temp 98.3 F 04/13/21 12:28 Pulse 106 H 04/13/21 12:28 Resp 18 04/13/21 12:28 BP 153/72 H 04/13/21 12:28 Pulse Ox 97 04/13/21 12:28 Oxygen Flow Rate 3 04/13/21 06:35 Body Mass Index 19.1 <Elvia Lara NP - Last Filed: 04/13/21 16:38> Appearing in no acute distress head is normocephalic atraumatic eyes pupils are PERRLA sclera is anicteric mouth throat mucous membranes are intact and moist neck is supple no lymphadenopathy, no JVD noted lung sounds are clear to auscultation heart regular rate rhythm, clear S1, S2 positive bowel sounds, abdomen is soft, nontender neuro patient is alert x3, no focal deficits <Elvia Lara NP - Last Fi led: 04/13/21 16:38> Results Labs CBC and Chem 7: : 04/15/21 05:30 04/15/21 05:30 <Elvia Lara NP - Last Filed: 04/13/21 16:38> Labs: Laboratory Results - last 24 hr 04/13/21 04/13/21 04/13/21 06:30 06:30 06:30 MCV 96.5 MCH 32.2 MCHC 33.4 RDW 13.7 Plt Count 413 H MPV 10.1 Immature Gran % (Auto) 0.2 Neut % (Auto) 62.1 Lymph % (Auto) 26.5 Montgomery % (Auto) 8.5 Eos % (Auto) 2.1 Baso % (Auto) 0.6 Lymph # (Auto) 2.5 Montgomery # (Auto) 0.8 Eos # (Auto) 0.2 Baso # (Auto) 0.1 Abs Immat Gran (auto) 0.02 Absolute Neuts (auto) 5.9 Absolute Nucleated RBC 0.000 Nucleated RBC % (auto) 0.0 PT INR APTT Anion Gap 19 Estim Creat Clear Calc 50.7 Estimated GFR 37 Random Glucose 141 H D Lactic Acid Lactic Acid Fup @ 2Hr Calcium 10.3 H Troponin I High Sens 4.7 B-Natriuretic Peptide 37 Urine Color Urine Appearance Urine pH Ur Specific Windber Urine Protein Urine Glucose (UA) Urine Ketones Urine Blood Urine Nitrite Ur Leukocyte Esterase Urine RBC Urine WBC Ur Squamous Epith Cells Urine Bacteria Coronavirus (PCR) Influenza Type A (PCR) Influenza Type B (PCR) RSV RNA Qual (PCR) 04/13/21 04/13/21 04/13/21 07:06 09:25 10:53 MCV MCH MCHC RDW Plt Count MPV Immature Gran % (Auto) Neut % (Auto) Lymph % (Auto) Montgomery % (Auto) Eos % (Auto) Baso % (Auto) Lymph # (Auto) Montgomery # (Auto) Eos # (Auto) Baso # (Auto) Abs Immat Gran (auto) Absolute Neuts (auto) Absolute Nucleated RBC Nucleated RBC % (auto) PT INR APTT Anion Gap Estim Creat Clear Calc Estimated GFR Random Glucose Lactic Acid Cancelled Lactic Acid Fup @ 2Hr Calcium Troponin I High Sens B-Natriuretic Peptide Urine Color YELLOW Urine Appearance CLEAR Urine pH 5.5 Ur Specific Windber 1.010 Urine Protein NEG Urine Glucose (UA) NEG Urine Ketones NEG Urine Blood NEG Urine Nitrite NEG Ur Leukocyte Esterase TRACE H Urine RBC 0-2 Urine WBC 1-4 Ur Squamous Epith Cells TRACE Urine Bacteria TRACE Coronavirus (PCR) NEGATIVE Influenza Type A (PCR) NEGATIVE Influenza Type B (PCR) NEGATIVE RSV RNA Qual (PCR) NEGATIVE 04/13/21 04/13/21 04/13/21 10:53 13:43 13:43 MCV MCH MCHC RDW Plt Count MPV Immature Gran % (Auto) Neut % (Auto) Lymph % (Auto) Montgomery % (Auto) Eos % (Auto) Baso % (Auto) Lymph # (Auto) Montgomery # (Auto) Eos # (Auto) Baso # (Auto) Abs Immat Gran (auto) Absolute Neuts (auto) Absolute Nucleated RBC Nucleated RBC % (auto) PT 10.8 INR 1.0 APTT 25.3 Anion Gap Estim Creat Clear Calc Estimated GFR Random Glucose Lactic Acid 2.3 H* Lactic Acid Fup @ 2Hr 1.6 Calcium Troponin I High Sens B-Natriuretic Peptide Urine Color Urine Appearance Urine pH Ur Specific Wind[place] Urine Protein Urine Glucose (UA) Urine Ketones Urine Blood Urine Nitrite Ur Leukocyte Esterase Urine RBC Urine WBC Ur Squamous Epith Cells Urine Bacteria Coronavirus (PCR) Influenza Type A (PCR) Influenza Type B (PCR) RSV RNA Qual (PCR) <Elvia Lara NP - Last Filed: 04/13/21 16:38> Imaging Radiologist's Impressions: Impressions Chest X-Ray 04/13/21 06:39 IMPRESSION: There is abnormal soft tissue fullness in the left suprahilar region abutting the aortic arch. Although this could be artifactual in nature an underlying mass lesion would be suspected. In this setting, dedicated CT scan of the chest would be recommended to evaluate this subtle finding further. This critical result was discussed with Dr. Alatorre at 04/13/2021 7:59 AM and it was ascertained that the content and urgency of the report was understood at the time of direct communication. Soft Tissue Neck CT 04/13/21 06:45 IMPRESSION: Emphysema, spiculated left upper lobe nodule and left hilar and mediastinal lymphadenopathy. Degenerative changes of the spine and right shoulder. Chest CT 04/13/21 07:59 IMPRESSION: Emphysema. Left upper lobe volume loss. 1 cm spiculated left upper lobe nodule neoplasm. Enlarged left hilar and mediastinal lymph nodes and narrowing of the left pulmonary arteries and veins. Question small liver lesion. Findings are suspicious for primary lung neoplasm, in particular small cell cancer. Pulmonary Perfusion Imaging 04/13/21 10:55 IMPRESSION: Intermediate probability of pulmonary embolism. Perfusion abnormalities are extensive in the left lung, but because of both the presence of the left upper lobe spiculated nodule and extensive mediastinal lymphadenopathy which causes some compression of the left sided proximal pulmonary arteries, these perfusion abnormalities may be due to either of the latter, but coexisting pulmonary emboli cannot be ruled out. No obvious pulmonary emboli are visualized on the contemporaneous CT scan, but this may not have been performed as a pulmonary embolism study. <Elvia Lara NP - Last Filed: 04/13/21 16:38> Assessment and Plan (1) Mass of left lung: Status: Acute <Elvia Lara NP - Last Filed: 04/13/21 16:38> 75 year old women admitted with possible lung mass and PE Lung mass. Seen on CT. New onset Heme/onc Pulm consult for possible bronchoscopy PE. New onset. VQ showed intermed for PE venous doppler bilat LE ddimer Therapeutic lovenox for now Heme consult COPD. no exacerbation duonebs supp oxygen if needed Hypertension continue home medications DVT prophylaxis with Lovenox <Elvia Lara NP - Last Filed: 04/13/21 16:38> 75 year old women admitted with possible lung mass and PE Lung mass. Seen on CT. New onset Heme/onc Pulm consult for possible bronchoscopy PE. New onset. VQ showed intermed for PE venous doppler bilat LE ddimer Therapeutic lovenox for now Heme consult COPD. no exacerbation duonebs supp oxygen if needed Hypertension continue home medications DVT prophylaxis with Lovenox Saw patient and disucussed findings, a/p with midlevel and I agree with above--MD Salas <Demarco Lala MD - Last Filed: 04/23/21 09:03> Quality Stroke Does the patient have a stroke diagnosis?: No <Elvia Lara NP - Last Filed: 04/13/21 16:38> VTE Prior VTE?: No <Elvia Lara NP - Last Filed: 04/13/21 16:38> VTE Risk Level:: Medical - moderate - high <Elvia Lara NP - Last Filed: 04/13/21 16:38> VTE Device Contraindication: Treatment Not Indicated <Elvia Lara NP - Last Filed: 04/13/21 16:38> VTE Drug Contraindication: N/A - Med Ordered <Elvia Lara NP - Last Filed: 04/13/21 16:38>
--- NOTE | 2021-04-13 15:45 | PC.NURSE ---
pt ambulated to the bathroom with steady gait, reports feeling slightly short of breath, still sating at 95% on room air, respirations even and unlabored.
[2021-04-13 16:12] LABS: D Dimer 471 NG/ML
--- NOTE | 2021-04-13 17:43 | PC.NURSE ---
called c for report, imc will call back
--- NOTE | 2021-04-13 18:06 | MHC.CM.PN ---
CM met with admitted pt, with bed pending. IMM reviewed and signed per protocol 04/13/21@1700. No HCP on file. HCP reviewed and completed per protocol. HCP/son Prashant Caraballo ([phone]). HCP uploaded into [employer]. Pt lives with significant other, Carlos Cheatham ([phone]). Pt has a walker and a cane, but states she does not use them. Pt has no services. Pt is agreeable to home PT if needed. Pt may benefit from PT evaluation. D/C plan is home with possible VNA. Transportation by significant other. CM to follow for d/c needs.
--- NOTE | 2021-04-13 18:22 | PC.NURSE ---
report given to elvia russell
[2021-04-13] MEDS: Acetaminophen 325 MG TABLET 650 MG PO (20:31)
[2021-04-13] MEDS: Melatonin 3 MG TABLET 6 MG PO (21:38)
[2021-04-13] MEDS: Albuterol/Iprat 2.5/0.5MG 3 ML AMPUL.NEB INHALE (22:09)
[2021-04-14] MEDS: 0.9 % Sodium Chloride Flush 3 ML SYRINGE IVFLUSH ×4 (02:50→23:04)
[2021-04-14] MEDS: Enoxaparin Sodium 60 MG/0.6 ML SYRINGE SUBCUT (02:50)
[2021-04-14 03:35] VITALS: BP 128/65; PULSE 85; RESP 18; TEMP 36.2; O2SAT 98
[2021-04-14 06:18] LABS: MANUAL DIFF FLAG NO
[2021-04-14 06:26] LABS: Basophils Absolute Auto 0.1 X10*3/uL (0.0-0.2); Basophils Percent Auto 0.7 % (0-2); Eosinophils Absolute Auto 0.2 X10*3/uL (0.0-0.4); Eosinophils Percent Auto 2.1 % (0-4); Hematocrit 42.4 % (37-47); Hemoglobin 13.9 g/dl (12.0-16.0); Imm Gran Abs Auto 0.01 X10*3/uL (0.00-0.03); Imm Gran Pct Auto 0.1 % (0.0-0.4); Lymphocytes Absolute Auto 1.9 X10*3/uL (1.2-4.9); Lymphocytes Percent Auto 25.5 % (20-40); Mean Corpuscular HGB Conc 32.8 g/dl (31.0-35.0); Mean Corpuscular Hemoglobin 31.2 pg (27.0-33.0); Mean Corpuscular Volume 95.1 fL (80-98); Monocytes Absolute Auto 0.8 X10*3/uL (0.1-1.2); Monocytes Percent Auto 11.4 % (2-11); Neutrophils Absolute Auto 4.4 X10*3/uL (2.0-8.3); Neutrophils Percent Auto 60.2 % (45-73); Platelet Count 364 X10*3/uL (160-400); Red Blood Count 4.46 X10*6/uL (4.20-5.50); Red Cell Distribution Width 13.7 % (11.0-16.0); White Blood Count 7.3 X10*3/uL (4.8-10.8)
[2021-04-14 06:45] LABS: Alanine Aminotransferase 10 U/L (0-31); Albumin Level 4.6 g/dL (3.5-5.0); Alkaline Phosphatase 69 U/L (39-117); Anion Gap 18 (12-20); Aspartate Amino Transferase 20 U/L (5-31); Bilirubin Direct 0.3 mg/dL (0.0-0.5); Bilirubin Total 0.6 mg/dL (0.0-1.0); Blood Urea Nitrogen 20 mg/dL (9-16); Calcium 10.6 mg/dL (8.4-10.2); Carbon Dioxide 22 mmol/L (22-29); Chloride 106 mmol/L (96-108); Creatinine Clr Calc Pharmacy 53.6; Estimated Glomerular Filt Rate > 60; Glucose Random 104 mg/dL (60-115); Potassium 4.3 mmol/L (3.3-5.1); Sodium 142 mmol/L (135-145); Total Protein 7.5 g/dL (6.5-8.0)
[2021-04-14 07:33] VITALS: BP 141/55; PULSE 93; RESP 19; TEMP 36.3; O2SAT 98
--- NOTE | 2021-04-14 09:45 | P.CONPL_ITS ---
History of Present Illness History of Present Illness Consult date: 04/14/21 Chief complaint: PE SOB Lung mass Narrative: This 75 years old female is admitted with chief complaint of a sore feeling in the left side of the throat for a few weeks and also increased shortness of breath. She has had no difficulty in swallowing. She has no fever chills or chest pain. She continues to use her regular inhalers for her chronic obstructive pulmonary disease. CT scan of the neck and CT scan of the chest show significant abnormality. Past medical history is that of chronic obstructive pulmonary disease for many years it has been controlled. Currently she was using Spiriva, Symbicort, and albuterol only p.r.n. 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 She also has peripheral neuropathy causing imbalance on walking. Mild hypertension has been well controlled. Review of Systems Review of Systems: Yes all other systems are reviewed and are negative Constitutional: Constitutional: Reports no additional constitutional comp laints Eyes: Eyes: Reports no additional eye complaints ENT: Reports dizziness, Reports neck pain, Reports disequilibrium and Reports sore throat (Mainly on the left side) Cardiovascular: Cardiovascular: Reports no additional cardiovascular complaints and Reports dyspnea (Mostly on [id number] exertion) Respiratory: Respiratory: Reports cough (Mild) and Reports dyspnea (Mostly on [id number] exertion) Gastrointestinal: Gastrointestinal: Reports no additional gastrointestinal complaints Musculoskeletal: Musculoskeletal: Reports back pain and Reports neck pain Neurologic: Reports dizziness and Reports disequilibrium Psychiatric: Psychiatric: Reports no additional psychiatric complaints Endocrine: Endocrine: Reports no additional endocrine complaints [facility] Past Medical History Medical History Cervicalgia COPD, severe Hypertension, essential Nephropathy Family History Family History Father No problems noted. Mother No problems noted. Brother No problems noted. Brother No problems noted. Sister No problems noted. Daughter No problems noted. Daughter No problems noted. Son No problems noted. Son No problems noted. Son No problems noted. Son No problems noted. Son No problems noted. Surgical History Surgical History History of cervical discectomy History of surgery Social History Social History Household Members: Spouse Housing: Homeless Housing Other:: duplex Do you presently have visiting nurse or other home services: No (roommate helps out) Alcohol intake: current Alcohol intake frequency: a few times a month Patient Tobacco Use Status: Former Tobacco user Quit Date: 13 years Tobacco use type: Cigarette Use of substances other than those prescribed or required for medical reasons: No Currently Displaying Signs/Symptoms of Drug Intoxication Withdrawal: No Have you been hit, kicked, punched, or otherwise hurt by someone within the past year? If so, by whom?: No Do you feel safe in your current relationship?: Yes Is there a partner from a previous relationship who is making you feel unsafe now?: No Are you made to feel afraid or neglected: No Advance Directives: Yes (HCP) Advance Directives on File: Yes Advance Directives Date on File: 04/13/21 Do you have thoughts of harming others: None Do you have a plan to hurt others: No Plan Recently lost weight without trying: Yes How much weight loss: 2-13 pounds Eating poorly because of decreased appetite: Yes Nutrition screen score: 4 Nutrition Risks: No Nutritional Risk Patient : No : No Poor oral hygiene: No service: No Current occupational status: retired [employer] Allergies Allergy/AdvReac Type Severity Reaction Status Date / Time No Known Allergies Allergy Verified 03/18/21 11:55 Active Medications: Current Medications Generic Name Dose Route Start Last Admin Trade Name Freq PRN Reason Stop Dose Admin Acetaminophen 650 mg 04/13/21 15:43 04/13/21 20:31 Acetaminophen 325 Mg Tablet PO 650 mg Q6H PRN Administration Pain, Mild (Pain Scale 1-3) Albuterol/Ipratropium 3 ml 04/13/21 21:05 04/13/21 22:09 Albuterol/Iprat 2.5/0.5mg 3 Ml Ampul.Neb INHALE 3 ml RQ4H PRN Administration Shortness of Breath/Wheezing Enoxaparin Sodium 60 mg 04/14/21 02:00 04/14/21 02:50 Enoxaparin Sodium 60 Mg/0.6 Ml Syringe SUBCUT 60 mg Q12H JEFFERY Administration Hydromorphone HCl 0.5 mg 04/13/21 21:05 Hydromorphone Hcl 0.5 Mg/0.5 Ml Syringe IVPUSH Q4H PRN Breakthrough Pain Protocol Melatonin 6 mg 04/13/21 21:05 04/13/21 21:38 Melatonin 3 Mg Tablet PO 6 mg BEDTIME PRN Administration Insomnia Ondansetron HCl 4 mg 04/13/21 15:43 Ondansetron Hcl 4 Mg/2 Ml Vial IVPUSH Q8H PRN Nausea and Vomiting Pharmacy Consult 1 each 04/13/21 13:15 Consult Rx Perform Med Rec MISCELLANE ONCE PRN Consult order Sodium Chloride 3 ml 04/13/21 16:00 04/14/21 08:44 0.9 % Sodium Chloride Flush 3 Ml Syringe IVFLUSH 3 ml QSHIFT JEFFERY Administration Home Medications Medication Instructions Recorded Confirmed Last Taken Type albuterol sulfate 90 mcg/actuation 2 puff INHALATION Q4H PRN 04/13/21 04/13/21 Unknown History aerosol inhaler (ProAir HFA) calcium carbonate 200 mg calcium 1 tab PO DAILY 04/13/21 04/13/21 Unknown History (500 mg)-vitamin D3 400 unit tablet Physical Exam Vital Signs: Vital Signs: Last Vital Signs Temp 97.4 F 04/14/21 07:33 Pulse 93 04/14/21 07:33 Resp 19 04/14/21 07:33 BP 141/55 H 04/14/21 07:33 Pulse Ox 98 04/14/21 07:33 Oxygen Flow Rate 3 04/13/21 06:35 Body Mass Index 19.1 Const: General: comfortable, no acute distress, alert and awake Orientation/consciousness: patient oriented x3 HENMT: Head: Yes normal to inspection General nose exam: No nasal polyps present and No nasal discharge present Face and sinus: Yes sinuses nontender Mouth: oropharynx normal Throat: Yes posterior oropharynx normal Eyes: General: appearance normal, both eyes and all related structures Neck: Neck: Yes normal visual inspection, Yes no lymphadenopathy, Yes trachea midline and Yes no JVD Thyroid: Thyroid normal Chest: Chest palpation & inspection: normal inspection of the chest, normal palpation of entire chest wall and no tenderness Resp: Other: Percussion note is resonant, breath sounds are distant with prolonged expiratory phase. No crepitations or wheezes are heard. Cardio: Palpation: normal PMI Rate: regular rate Rhythm: regular rhythm Heart sounds: no gallops and no murmurs GI: Palpation (GI): Soft to palpation, nontender, No hepatosplenomegaly present and no masses Auscultation: normal bowel sounds Back/Spine/Pelvis: Thoracic/Lumbar Spine: thoracic and lumbar spine normal to inspection Skin: General skin exam: no rashes or lesions noted Neuro: General: patient oriented x3 and no focal motor deficits Cranial nerves: Yes CN's II-XII intact bilaterally Extrem: General: Yes normal to inspection, Yes no clubbing, cyanosis or edema and Yes no calf tenderness Psych: Speech and movement: Normal speech and movement present Results Laboratory Findings CBC and BMP: 04/14/21 05:25 04/14/21 05:25 ABG, PT/INR, D-dimer: PT/INR, D-dimer PT 10.8 SEC (9.9-13.0) 04/13/21 13:43 INR 1.0 (0.9-1.1) 04/13/21 13:43 D-Dimer 471 NG/ML 04/13/21 15:59 Abnormal lab findings: Abnormal Labs 04/13/21 04/13/21 04/13/21 06:30 06:30 09:25 Plt Count 413 H [place] % (Auto) Carbon Dioxide 20 L BUN 34 H Random Glucose 141 H D Lactic Acid Calcium 10.3 H Ur Leukocyte Esterase TRACE H 04/13/21 04/14/21 04/14/21 10:53 05:25 05:25 Plt Count [place] % (Auto) 11.4 H Carbon Dioxide BUN 20 H Random Glucose Lactic Acid 2.3 H* Calcium 10.6 H Ur Leukocyte Esterase Microbiology: Microbiology 04/13/21 07:04 Blood - Venous Blood Culture - Preliminary No growth after 24 hours. 04/13/21 07:04 Blood - Venous Blood Culture - Preliminary No growth after 24 hours. Diagnostic Findings Chest x-ray: image reviewed CT scan - chest: image reviewed Assessment and Plan (1) COPD, severe: Status: Acute This patient does have chronic obstructive pulmonary disorder, which is relatively severe but has been well controlled. TX continue her present regimen, (2) Cervicalgia: Status: Acute Chronic neck pain due to degenerative arthritis, stable (3) Mass of left lung: Status: Acute She has a very prominent mass in the left upper mediastinum, with mediastinal lymphadenopathy, and there is some volume loss of the left upper lobe This mass is most likely neoplastic. Plan is bronchoscopy and endobronchial ultrasound-guided biopsy ( EBUS ) I discussed the case with Dr. Lara and we both reviewed the CT scan findings . The procedure is being scheduled to be done in the next 1 or 2 days. Procedures Date of Service Date of Service: 04/14/21
[2021-04-14 10:40] VITALS: BMI 19.1
--- NOTE | 2021-04-14 10:44 | MHC.CLN ---
RE: CONSULT PT IS UNDER WT FOR HT PT WITH 10# WT LOSS X 3 MONTHS PER PT, NON SIGNIFICANT WT LOSS X 90DAYS HOWEVER APPROACHING WITH NEW DX LUNG MASS DIET RX: REGULAR-APPROPRIATE RECOMMEND ADDING ENSURE BID TO PROVIDE AN ADDITIONAL 700KCALS, 40G PROTEIN MONITOR PO INTAKE CLOSELY SEE ALSO CLINICAL NUTRITION ASSESSMENT
[2021-04-14 11:11] VITALS: BP 146/58; PULSE 101; RESP 18; TEMP 36.6; O2SAT 96
--- NOTE | 2021-04-14 11:15 | P.PNIM_ITS ---
Subjective Subjective Date of Service: 04/14/21 Interval History: Seen and examined this morning Follow-up for her to lung mass, PE Reports shortness of breath at baseline, no change at this time Still reports he coarseness to her voice x2 weeks Review of Systems Review of Systems: Yes all other systems are reviewed and are negative Constitutional Constitutional: Denies chills and Denies fever(s) Cardiovascular Cardiovascular: Denies chest pain Gastrointestinal Gastrointestinal: Denies abdominal pain Physical Exam Vital Signs: Vital Signs: Last Vital Signs Temp 97.9 F 04/14/21 11:11 Pulse 101 H 04/14/21 11:11 Resp 18 04/14/21 11:11 BP 146/58 H 04/14/21 11:11 Pulse Ox 96 04/14/21 11:11 Oxygen Flow Rate 3 04/13/21 06:35 Body Mass Index 19.1 Const: Nutritional Appearance: well nourished Orientation/consciousness: patient oriented x3 HENMT: Head: Yes normocephalic and Yes atraumatic Eyes: Sclerae: sclerae normal Resp: Effort & Inspection: normal respiratory effort and no respiratory distress Cardio: Rate: regular rate Rhythm: regular rhythm GI: Palpation (GI): Soft to palpation and nontender Neuro: General: patient oriented x3 Cranial nerves: Yes CN's II-XII intact bilaterally and Yes Bilaterally intact EOM present Objective Data Active Medications Acetaminophen (Acetaminophen 325 Mg Tablet) 650 mg PO Q6H PRN PRN Reason: Pain, Mild (Pain Scale 1-3) Last Admin: 04/13/21 20:31 Dose: 650 mg Documented by: KIMMY Albuterol/Ipratropium (Albuterol/Iprat 2.5/0.5mg 3 Ml Ampul.Neb) 3 ml INHALE RQ4H PRN PRN Reason: Shortness of Breath/Wheezing Last Admin: 04/13/21 22:09 Dose: 3 ml Documented by: CORI Enoxaparin Sodium (Enoxaparin Sodium 60 Mg/0.6 Ml Syringe) 60 mg SUBCUT Q12H [facility] Last Admin: 04/14/21 02:50 Dose: 60 mg Documented by: KIMMY Fluticasone/Vilanterol (Fluticasone/Vilanterol 200/25 Blst.W.Dev) 1 puff INHALE RDAILY JEFFERY Hydromorphone HCl (Hydromorphone Hcl 0.5 Mg/0.5 Ml Syringe) 0.5 mg IVPUSH Q4H PRN; Protocol PRN Reason: Breakthrough Pain Melatonin (Melatonin 3 Mg Tablet) 6 mg PO BEDTIME PRN PRN Reason: Insomnia Last Admin: 04/13/21 21:38 Dose: 6 mg Documented by: KIMMY Ondansetron HCl (Ondansetron Hcl 4 Mg/2 Ml Vial) 4 mg IVPUSH Q8H PRN PRN Reason: Nausea and Vomiting Pharmacy Consult (Consult Rx Perform Med Rec) 1 each MISCELLANE ONCE PRN PRN Reason: Consult order Sodium Chloride (0.9 % Sodium Chloride Flush 3 Ml Syringe) 3 ml IVFLUSH [facility] Last Admin: 04/14/21 08:44 Dose: 3 ml Documented by: ANDREY Labs CBC & Chem 7: 04/14/21 05:25 04/14/21 05:25 Labs: Laboratory Results - last 24 hr 04/13/21 04/13/21 04/13/21 10:53 10:53 13:43 MCV MCH MCHC RDW Plt Count MPV Immature Gran % (Auto) Neut % (Auto) Lymph % (Auto) [place] % (Auto) Eos % (Auto) Baso % (Auto) Lymph # (Auto) [place] # (Auto) Eos # (Auto) Baso # (Auto) Abs Immat Gran (auto) Absolute Neuts (auto) Absolute Nucleated RBC Nucleated RBC % (auto) PT INR APTT D-Dimer Anion Gap Estim Creat Clear Calc Estimated GFR Random Glucose Lactic Acid Cancelled 2.3 H* Lactic Acid Fup @ 2Hr 1.6 Calcium Total Bilirubin Direct Bilirubin AST ALT Alkaline Phosphatase Total Protein Albumin 04/13/21 04/13/21 04/14/21 13:43 15:59 05:25 MCV 95.1 MCH 31.2 MCHC 32.8 RDW 13.7 Plt Count 364 MPV 10.0 Immature Gran % (Auto) 0.1 Neut % (Auto) 60.2 Lymph % (Auto) 25.5 [place] % (Auto) 11.4 H Eos % (Auto) 2.1 Baso % (Auto) 0.7 Lymph # (Auto) 1.9 [place] # (Auto) 0.8 Eos # (Auto) 0.2 Baso # (Auto) 0.1 Abs Immat Gran (auto) 0.01 Absolute Neuts (auto) 4.4 Absolute Nucleated RBC 0.000 Nucleated RBC % (auto) 0.0 PT 10.8 INR 1.0 APTT 25.3 D-Dimer 471 Anion Gap Estim Creat Clear Calc Estimated GFR Random Glucose Lactic Acid Lactic Acid Fup @ 2Hr Calcium Total Bilirubin Direct Bilirubin AST ALT Alkaline Phosphatase Total Protein Albumin 04/14/21 05:25 MCV MCH MCHC RDW Plt Count MPV Immature Gran % (Auto) Neut % (Auto) Lymph % (Auto) [place] % (Auto) Eos % (Auto) Baso % (Auto) Lymph # (Auto) [place] # (Auto) Eos # (Auto) Baso # (Auto) Abs Immat Gran (auto) Absolute Neuts (auto) Absolute Nucleated RBC Nucleated RBC % (auto) PT INR APTT D-Dimer Anion Gap 18 Estim Creat Clear Calc 53.6 Estimated GFR > 60 Random Glucose 104 Lactic Acid Lactic Acid Fup @ 2Hr Calcium 10.6 H Total Bilirubin 0.6 Direct Bilirubin 0.3 AST 20 ALT 10 Alkaline Phosphatase 69 Total Protein 7.5 Albumin 4.6 Microbiology Microbiology Results: Microbiology 04/13/21 Unknown Urine Culture - Final Urine clean catch - Urine nielsen top 04/13/21 07:04 Blood Culture - Preliminary Blood - Venous No growth after 24 hours. 04/13/21 07:04 Blood Culture - Preliminary Blood - Venous No growth after 24 hours. Assessment and Plan (1) Mass of left lung: Status: Acute Assessment and Plan: 75 year old women admitted with possible lung mass and PE New Lung mass Seen by pulmonology, plan for bronchoscopy in a.m. Heme/onc consult PE. VQ intermediate for PE Bilateral lower extremity venous Doppler negative for DVT Started on therapeutic Lovenox will hold for bronchoscopy in a.m. Heme consult pending COPD. no exacerbation duonebs supp oxygen if needed Hypertension continue home medications DVT prophylaxis wit lovenox Attending-Dr. Smith Quality Stroke Does the patient have a stroke diagnosis?: No VTE Prior VTE?: No VTE Risk Level:: Medical - moderate - high VTE Device Contraindication: Treatment Not Indicated VTE Drug Contraindication: N/A - Med Ordered
[2021-04-14] MEDS: traMADoL HCL 50 MG TABLET PO (12:43)
[2021-04-14] MEDS: iohexoL 350 MG/ML 100 ML INFUS..BTL IV (12:44)
[2021-04-14] MEDS: Albuterol/Iprat 2.5/0.5MG 3 ML AMPUL.NEB INHALE (13:17)
[2021-04-14 13:19] VITALS: PULSE 107; O2SAT 94
[2021-04-14 15:17] VITALS: BP 104/71; PULSE 72; RESP 18; TEMP 37.1; O2SAT 98
[2021-04-14] MEDS: Acetaminophen 325 MG TABLET 650 MG PO (18:49)
[2021-04-14 19:03] VITALS: BP 161/66; PULSE 90; RESP 18; TEMP 36.8; O2SAT 97
[2021-04-14] MEDS: Melatonin 3 MG TABLET 6 MG PO (20:16)
[2021-04-15] VITALS (17 sets, daily range): BP systolic 97–166; BP diastolic 34–74; PULSE 97–107; RESP 18–24; TEMP 36.2–37; O2SAT 95–100; BMI 25.8
[2021-04-15] MEDS: Albuterol/Iprat 2.5/0.5MG 3 ML AMPUL.NEB INHALE ×3 (03:28→20:58)
[2021-04-15 06:57] LABS: Hematocrit 35.6 % (37-47); Mean Corpuscular HGB Conc 33.7 g/dl (31.0-35.0); Mean Corpuscular Hemoglobin 31.9 pg (27.0-33.0); Mean Corpuscular Volume 94.7 fL (80-98); Platelet Count 339 X10*3/uL (160-400); Red Blood Count 3.76 X10*6/uL (4.20-5.50); Red Cell Distribution Width 13.8 % (11.0-16.0); White Blood Count 8.1 X10*3/uL (4.8-10.8)
[2021-04-15] MEDS: Fluticasone/Vilanterol 200/25 BLST.W.DEV 1 PUFF INHALE (08:10)
[2021-04-15] MEDS: 0.9 % Sodium Chloride Flush 3 ML SYRINGE IVFLUSH ×2 (08:10→15:50)
[2021-04-15 08:18] LABS: Anion Gap 17 (12-20); Blood Urea Nitrogen 24 mg/dL (9-16); Calcium 9.7 mg/dL (8.4-10.2); Carbon Dioxide 22 mmol/L (22-29); Chloride 105 mmol/L (96-108); Creatinine Clr Calc Pharmacy 43.1; Estimated Glomerular Filt Rate 48; Glucose Random 120 mg/dL (60-115); Sodium 140 mmol/L (135-145)
--- NOTE | 2021-04-15 10:17 | MHC.CLN ---
F/U PREVIOUS PO INTAKE 50% PT IS NPO FOR PROCEDURE WHEN DIET TO ADVANCE; RECOMMEND RE-STARTING ENSURE BID TO PROVIDE AN ADDITIONAL 700KCALS, 40G PROTEIN MONITOR PO INTAKE CLOSELY
--- NOTE | 2021-04-15 11:08 | P.CDIC_ITS ---
CDI Concurrent Query Service Date: 04/19/21 Documentation Clarification: Please clarify if you are treating a proba ble/suspected/likely or confirmed: Underweight Nutritional deficiency Other, please specify if known or undetermined Provider Response: Other Other Diagnosis: Unclear PLEASE DO NOT DELETE/MODIFY EXISTING CONTENT Additional information is needed in order to code to the highest accuracy and appropriate Severity of Illness (SOI). Please clarify the information noted below in your progress notes and discharge summary. Risk Factors/Clinical Indicators/Treatments Nutrition notes 04/14 - patient is underweight with BMI 19.1 Loss of 10 lbs over 3 months Underweight for her height Adding Ensure Lung mass CDS: Nicole Wall CCS, CDIS Contact Number: [phone] Please Review the information above and exercise your independent professional judgment in responding to the query. If you concur, pleas document in the PROGRESS NOTES and DISCHARGE SUMMARY. If you do not agree with the query, please document in the query above. THIS QUERY IS PART OF THE PERMANENT MEDICAL RECORD
--- NOTE | 2021-04-15 11:24 | P.CONAN_ITS ---
HPI - Anesthesia Eval Consult details Narrative: 75 yo female patient for Endoscopic Bronchial Ultrasound [facility] Active Problems Active Problems: All Active Problems (Updated 04/13/21 @ 13:17 by Chayo Alatorre DO) Acute dyspnea (Acute) Tachycardia (Acute) Mass of left lung (Acute) Acidosis, lactic (Acute) Sore throat (Acute) Cervical spondylosis (Acute) Osteoarthritis of shoulders, bilateral (Acute) Balance disorder (Acute) History of cervical spinal arthrodesis (Acute) Shoulder pain, bilateral (Acute) Encounter for general adult medical examination with abnormal findings (Acute) Itching (Acute) Nephropathy (Acute) Cervicalgia (Acute) COPD, severe (Acute) Hypertension, essential (Acute) Hoarseness of voice Past Medical History Medical History Cervicalgia COPD, severe Hypertension, essential Nephropathy Family History Family History Father No problems noted. Mother No problems noted. Brother No problems noted. Brother No problems noted. Sister No problems noted. Daughter No problems noted. Daughter No problems noted. Son No problems noted. Son No problems noted. Son No problems noted. Son No problems noted. Son No problems noted. Family history of problems with anesthesia: No Surgical History Surgical History History of cervical discectomy History of surgery History of Problems with Anesthesia: No Social History Social History Household Members: Spouse Housing: Homeless Housing Other:: duplex Do you presently have visiting nurse or other home services: No (roommate helps out) Alcohol intake: current Alcohol intake frequency: a few times a month Patient Tobacco Use Status: Former Tobacco user Quit Date: 13 yrs ago Tobacco use type: Cigarette Use of substances other than those prescribed or required for medical reasons: No Currently Displaying Signs/Symptoms of Drug Intoxication Withdrawal: No Have you been hit, kicked, punched, or otherwise hurt by someone within the past year? If so, by whom?: No Do you feel safe in your current relationship?: Yes Is there a partner from a previous relationship who is making you feel unsafe now?: No Are you made to feel afraid or neglected: No Are you DNR?: No Advance Directives: Yes (HCP) Advance Directives on File: Yes Advance Directives Date on File: 04/13/21 Do you have thoughts of harming others: None Do you have a plan to hurt others: No Plan Recently lost weight without trying: Yes How much weight loss: 2-13 pounds Eating poorly because of decreased appetite: Yes Nutrition screen score: 4 Nutrition Risks: No Nutritional Risk Patient : No : No Poor oral hygiene: No service: No Current occupational status: retired [employer] Allergies Allergy/AdvReac Type Severity Reaction Status Date / Time No Known Allergies Allergy Verified 03/18/21 11:55 Active Medications: Current Medications Generic Name Dose Route Start Last Admin Trade Name Freq PRN Reason Stop Dose Admin Acetaminophen 650 mg 04/13/21 15:43 04/14/21 18:49 Acetaminophen 325 Mg Tablet PO 650 mg Q6H PRN Administration Pain, Mild (Pain Scale 1-3) Albuterol Sulfate 2.5 mg 04/15/21 11:24 Albuterol Sulfate (0.083%) 2.5 Mg/3 Ml Vial.Neb INHALE ONCE PRN Shortness of Breath/Wheezing Albuterol/Ipratropium 3 ml 04/13/21 21:05 04/15/21 03:28 Albuterol/Iprat 2.5/0.5mg 3 Ml Ampul.Neb INHALE 3 ml RQ4H PRN Administration Shortness of Breath/Wheezing Fluticasone/Vilanterol 1 puff 04/15/21 08:00 04/15/21 08:10 Fluticasone/Vilanterol 200/25 Blst.W.Dev INHALE 1 puff RDAILY JEFFERY Administration Hydrochlorothiazide 12.5 mg 04/15/21 12:00 Hydrochlorothiazide 12.5 Mg Tablet PO DAILY JEFFERY Lactated Ringer's 1,000 mls @ 50 mls/hr 04/15/21 11:30 Lr IVCONT .Q20H JEFFERY Melatonin 6 mg 04/13/21 21:05 04/14/21 20:16 Melatonin 3 Mg Tablet PO 6 mg BEDTIME PRN Administration Insomnia Ondansetron HCl 4 mg 04/13/21 15:43 Ondansetron Hcl 4 Mg/2 Ml Vial IVPUSH Q8H PRN Nausea and Vomiting Pharmacy Consult 1 each 04/13/21 13:15 Consult Rx Perform Med Rec MISCELLANE ONCE PRN Consult order Sodium Chloride 3 ml 04/13/21 16:00 04/15/21 08:10 0.9 % Sodium Chloride Flush 3 Ml Syringe IVFLUSH 3 ml QSHIFT JEFFERY Administration Tizanidine HCl 2 mg 04/14/21 11:48 Tizanidine Hcl 4 Mg Tablet PO DAILY PRN for muscle spasm Tramadol HCl 50 mg 04/14/21 12:03 04/14/21 12:43 Tramadol Hcl 50 Mg Tablet PO 50 mg Q6H PRN Administration Pain, Moderate (Pain Scale 4-6 Valsartan 160 mg 04/15/21 12:00 Valsartan 160 Mg Tablet PO DAILY [facility] [place] Home Medications Medication Instructions Recorded Confirmed Last Taken Type albuterol sulfate 90 mcg/actuation 2 puff INHALATION Q4H PRN 04/13/21 04/13/21 Unknown History aerosol inhaler (ProAir HFA) calcium carbonate 200 mg calcium 1 tab PO DAILY 04/13/21 04/13/21 Unknown History (500 mg)-vitamin D3 400 unit tablet Exam Exam Date and Time: April 15, 2021 1124 Height,Weight and Vital Signs: Height 5 ft 1 in Weight 62 kg Last Vital Signs Temp 98.0 F 04/15/21 11:09 Pulse 98 04/15/21 11:09 Resp 18 04/15/21 11:09 BP 166/74 H 04/15/21 11:09 Pulse Ox 98 04/15/21 11:09 Oxygen Flow Rate 3 04/13/21 06:35 Pertinent Lab Results Pertinent Lab Results: Laboratory Tests 04/13/21 04/13/21 04/13/21 06:30 06:30 06:30 WBC 9.5 RBC 4.25 Hgb 13.7 Hct 41.0 MCV 96.5 MCH 32.2 MCHC 33.4 RDW 13.7 Plt Count 413 H MPV 10.1 Immature Gran % (Auto) 0.2 Neut % (Auto) 62.1 Lymph % (Auto) 26.5 Simpson % (Auto) 8.5 Eos % (Auto) 2.1 Baso % (Auto) 0.6 Lymph # (Auto) 2.5 Simpson # (Auto) 0.8 Eos # (Auto) 0.2 Baso # (Auto) 0.1 Abs Immat Gran (auto) 0.02 Absolute Neuts (auto) 5.9 Absolute Nucleated RBC 0.000 Nucleated RBC % (auto) 0.0 PT INR APTT D-Dimer Sodium 139 Potassium 4.3 Chloride 104 Carbon Dioxide 20 L Anion Gap 19 BUN 34 H Creatinine 1.39 Estim Creat Clear Calc 50.7 Estimated GFR 37 Random Glucose 141 H D Lactic Acid Lactic Acid Fup @ 2Hr Calcium 10.3 H Total Bilirubin Direct Bilirubin AST ALT Alkaline Phosphatase Troponin I High Sens 4.7 B-Natriuretic Peptide 37 Total Protein Albumin Urine Color Urine Appearance Urine pH Ur Specific [place] Urine Protein Urine Glucose (UA) Urine Ketones Urine Blood Urine Nitrite Ur Leukocyte Esterase Urine RBC Urine WBC Ur Squamous Epith Cells Urine Bacteria Coronavirus (PCR) Influenza Type A (PCR) Influenza Type B (PCR) RSV RNA Qual (PCR) 04/13/21 04/13/21 04/13/21 07:06 09:25 10:53 WBC RBC Hgb Hct MCV MCH MCHC RDW Plt Count MPV Immature Gran % (Auto) Neut % (Auto) Lymph % (Auto) Simpson % (Auto) Eos % (Auto) Baso % (Auto) Lymph # (Auto) Simpson # (Auto) Eos # (Auto) Baso # (Auto) Abs Immat Gran (auto) Absolute Neuts (auto) Absolute Nucleated RBC Nucleated RBC % (auto) PT INR APTT D-Dimer Sodium Potassium Chloride Carbon Dioxide Anion Gap BUN Creatinine Estim Creat Clear Calc Estimated GFR Random Glucose Lactic Acid Cancelled Lactic Acid Fup @ 2Hr Calcium Total Bilirubin Direct Bilirubin AST ALT Alkaline Phosphatase Troponin I High Sens B-Natriuretic Peptide Total Protein Albumin Urine Color YELLOW Urine Appearance CLEAR Urine pH 5.5 Ur Specific [place] 1.010 Urine Protein NEG Urine Glucose (UA) NEG Urine Ketones NEG Urine Blood NEG Urine Nitrite NEG Ur Leukocyte Esterase TRACE H Urine RBC 0-2 Urine WBC 1-4 Ur Squamous Epith Cells TRACE Urine Bacteria TRACE Coronavirus (PCR) NEGATIVE Influenza Type A (PCR) NEGATIVE Influenza Type B (PCR) NEGATIVE RSV RNA Qual (PCR) NEGATIVE 04/13/21 04/13/21 04/13/21 10:53 13:43 13:43 WBC RBC Hgb Hct MCV MCH MCHC RDW Plt Count MPV Immature Gran % (Auto) Neut % (Auto) Lymph % (Auto) Simpson % (Auto) Eos % (Auto) Baso % (Auto) Lymph # (Auto) Simpson # (Auto) Eos # (Auto) Baso # (Auto) Abs Immat Gran (auto) Absolute Neuts (auto) Absolute Nucleated RBC Nucleated RBC % (auto) PT 10.8 INR 1.0 APTT 25.3 D-Dimer Sodium Potassium Chloride Carbon Dioxide Anion Gap BUN Creatinine Estim Creat Clear Calc Estimated GFR Random Glucose Lactic Acid 2.3 H* Lactic Acid Fup @ 2Hr 1.6 Calcium Total Bilirubin Direct Bilirubin AST ALT Alkaline Phosphatase Troponin I High Sens B-Natriuretic Peptide Total Protein Albumin Urine Color Urine Appearance Urine pH Ur Specific [place] Urine Protein Urine Glucose (UA) Urine Ketones Urine Blood Urine Nitrite Ur Leukocyte Esterase Urine RBC Urine WBC Ur Squamous Epith Cells Urine Bacteria Coronavirus (PCR) Influenza Type A (PCR) Influenza Type B (PCR) RSV RNA Qual (PCR) 04/13/21 04/14/21 04/14/21 15:59 05:25 05:25 WBC 7.3 RBC 4.46 Hgb 13.9 Hct 42.4 MCV 95.1 MCH 31.2 MCHC 32.8 RDW 13.7 Plt Count 364 MPV 10.0 Immature Gran % (Auto) 0.1 Neut % (Auto) 60.2 Lymph % (Auto) 25.5 Simpson % (Auto) 11.4 H Eos % (Auto) 2.1 Baso % (Auto) 0.7 Lymph # (Auto) 1.9 Simpson # (Auto) 0.8 Eos # (Auto) 0.2 Baso # (Auto) 0.1 Abs Immat Gran (auto) 0.01 Absolute Neuts (auto) 4.4 Absolute Nucleated RBC 0.000 Nucleated RBC % (auto) 0.0 PT INR APTT D-Dimer 471 Sodium 142 Potassium 4.3 Chloride 106 Carbon Dioxide 22 Anion Gap 18 BUN 20 H Creatinine 0.90 Estim Creat Clear Calc 53.6 Estimated GFR > 60 Random Glucose 104 Lactic Acid Lactic Acid Fup @ 2Hr Calcium 10.6 H Total Bilirubin 0.6 Direct Bilirubin 0.3 AST 20 ALT 10 Alkaline Phosphatase 69 Troponin I High Sens B-Natriuretic Peptide Total Protein 7.5 Albumin 4.6 Urine Color Urine Appearance Urine pH Ur Specific [place] Urine Protein Urine Glucose (UA) Urine Ketones Urine Blood Urine Nitrite Ur Leukocyte Esterase Urine RBC Urine WBC Ur Squamous Epith Cells Urine Bacteria Coronavirus (PCR) Influenza Type A (PCR) Influenza Type B (PCR) RSV RNA Qual (PCR) 04/15/21 04/15/21 05:30 05:30 WBC 8.1 RBC 3.76 L Hgb 12.0 Hct 35.6 L MCV 94.7 MCH 31.9 MCHC 33.7 RDW 13.8 Plt Count 339 MPV 10.0 Immature Gran % (Auto) Neut % (Auto) Lymph % (Auto) Simpson % (Auto) Eos % (Auto) Baso % (Auto) Lymph # (Auto) Simpson # (Auto) Eos # (Auto) Baso # (Auto) Abs Immat Gran (auto) Absolute Neuts (auto) Absolute Nucleated RBC 0.000 Nucleated RBC % (auto) 0.0 PT INR APTT D-Dimer Sodium 140 Potassium 4.0 Chloride 105 Carbon Dioxide 22 Anion Gap 17 BUN 24 H Creatinine 1.12 Estim Creat Clear Calc 43.1 Estimated GFR 48 Random Glucose 120 H Lactic Acid Lactic Acid Fup @ 2Hr Calcium 9.7 D Total Bilirubin Direct Bilirubin AST ALT Alkaline Phosphatase Troponin I High Sens B-Natriuretic Peptide Total Protein Albumin Urine Color Urine Appearance Urine pH Ur Specific [place] Urine Protein Urine Glucose (UA) Urine Ketones Urine Blood Urine Nitrite Ur Leukocyte Esterase Urine RBC Urine WBC Ur Squamous Epith Cells Urine Bacteria Coronavirus (PCR) Influenza Type A (PCR) Influenza Type B (PCR) RSV RNA Qual (PCR) Airway Mallampati Class: II TM Dist: >3cm Neck ROM: Limited Loose/Missing/Broken Teeth: Yes (FRont teeth chipped) Heart: RRR Lungs: Wheeze Left upper > Right side Assessment and Plan Assessment Anesthesia Assessment: Anesthesia Plan Discussed and Chart Reviewed Final Anesthetic Review Family History of Problems with Anesthesia: No History of Problems with Anesthesia: No NPO: Yes ASA Class: III Final Preanesthetic Review: No Changes in Pt Med Stat, Meds/Allgs Chart Reviewed, Consent Obtained/Reviewed and Anes Risks/Benef Reviewed Patient Risk: Intermediate Procedure Risk: Intermediate Assessment/Block/Sedation in SS: Assess/Block/Sedation- Anesthetic Plan Anesthetic Plan: GA Disposition: Standard PACU and Inp. Admit - [facility]
[2021-04-15] MEDS: Lactated Ringers 1,000 ML 50 ML IVCONT (11:43)
--- NOTE | 2021-04-15 12:35 | MHC.SHP ---
Pre-Procedural Eval Section A Date of Service: 04/15/21 The patient is an INPATIENT: Yes Section B Chief Complaint: PE SOB Lung mass Allergies: Allergies Allergy/AdvReac Type Severity Reaction Status Date / Time No Known Allergies Allergy Verified 03/18/21 11:55 Plan I have reviewed the history and physical and performed a pertinent physical examination on my patient. No changes have occurred unless specified.
--- NOTE | 2021-04-15 12:41 | HO.PM.IMPN ---
Subjective Subjective Date of Service: 04/15/21 Interval History: Seen and examined this morning Follow-up for new lung mass. Reports feeling about the same as yesterday. Dyspnea with exertion, no cough Review of Systems Review of Systems: Yes all other systems are reviewed and are negative Constitutional Constitutional: Denies chills and Denies fever(s) Cardiovascular Cardiovascular: Denies chest pain Respiratory Respiratory: Denies cough Gastrointestinal Gastrointestinal: Denies abdominal pain Physical Exam Vital Signs: Vital Signs: Last Vital Signs Temp 98.0 F 04/15/21 11:09 Pulse 97 04/15/21 11:40 Resp 18 04/15/21 11:09 BP 166/74 H 04/15/21 11:09 Pulse Ox 98 04/15/21 11:09 Oxygen Flow Rate 3 04/13/21 06:35 Body Mass Index 25.8 Const: Nutritional Appearance: well nourished Orientation/consciousness: patient oriented x3 HENMT: Head: Yes normocephalic and Yes atraumatic Eyes: Sclerae: sclerae normal Resp: Effort & Inspection: normal respiratory effort and no respiratory distress Cardio: Rate: regular rate Rhythm: regular rhythm GI: Palpation (GI): Soft to palpation and nontender Neuro: General: patient oriented x3 Cranial nerves: Yes CN's II-XII intact bilaterally and Yes Bilaterally intact EOM present Objective Data Active Medications Acetaminophen (Acetaminophen 325 Mg Tablet) 650 mg PO Q6H PRN PRN Reason: Pain, Mild (Pain Scale 1-3) Last Admin: 04/14/21 18:49 Dose: 650 mg Documented by: ANAI Acetaminophen (Acetaminophen 325 Mg Tablet) 650 mg PO ONCE PRN PRN Reason: Pain, Mild (Pain Scale 1-3) Albuterol Sulfate (Albuterol Sulfate (0.083%) 2.5 Mg/3 Ml Vial.Neb) 2.5 mg INHALE ONCE PRN PRN Reason: Shortness of Breath/Wheezing Albuterol/Ipratropium (Albuterol/Iprat 2.5/0.5mg 3 Ml Ampul.Neb) 3 ml INHALE RQ4H PRN PRN Reason: Shortness of Breath/Wheezing Last Admin: 04/15/21 11:40 Dose: 3 ml Documented by: AUBRIE Fentanyl (Fentanyl Citrate/Pf 100 Mcg/2 Ml Vial) 25 mcg IVPUSH Q5M PRN; Protocol PRN Reason: Pain, Moderate (Pain Scale 4-6 Fluticasone/Vilanterol (Fluticasone/Vilanterol 200/25 Blst.W.Dev) 1 puff INHALE RDAILY [facility] Last Admin: 04/15/21 08:10 Dose: 1 puff Documented by: MEÑO Hydrochlorothiazide (Hydrochlorothiazide 12.5 Mg Tablet) 12.5 mg PO DAILY [facility] Lactated Ringer's (Lr) 1,000 mls @ 50 mls/hr IVCONT .Q20H [facility] Last Admin: 04/15/21 11:43 Dose: 50 mls/hr Documented by: ILEANA Melatonin (Melatonin 3 Mg Tablet) 6 mg PO BEDTIME PRN PRN Reason: Insomnia Last Admin: 04/14/21 20:16 Dose: 6 mg Documented by: ANAI Ondansetron HCl (Ondansetron Hcl 4 Mg/2 Ml Vial) 4 mg IVPUSH Q8H PRN PRN Reason: Nausea and Vomiting Ondansetron HCl (Ondansetron Hcl 4 Mg/2 Ml Vial) 4 mg IVPUSH ONCE PRN PRN Reason: Nausea and Vomiting Oxycodone HCl (Oxycodone Hcl Immed Release 5 Mg Tablet) 5 mg PO ONCE PRN PRN Reason: Pain, Severe (Pain Scale 7-10) Pharmacy Consult (Consult Rx Perform Med Rec) 1 each MISCELLANE ONCE PRN PRN Reason: Consult order Sodium Chloride (0.9 % Sodium Chloride Flush 3 Ml Syringe) 3 ml IVFLUSH QSHIFT [facility] Last Admin: 04/15/21 08:10 Dose: 3 ml Documented by: MEÑO Tizanidine HCl (Tizanidine Hcl 4 Mg Tablet) 2 mg PO DAILY PRN PRN Reason: for muscle spasm Tramadol HCl (Tramadol Hcl 50 Mg Tablet) 50 mg PO Q6H PRN PRN Reason: Pain, Moderate (Pain Scale 4-6 Last Admin: 04/14/21 12:43 Dose: 50 mg Documented by: ANDREY Valsartan (Valsartan 160 Mg Tablet) 160 mg PO DAILY [facility] Labs CBC & Chem 7: 04/15/21 05:30 04/15/21 05:30 Labs: Laboratory Results - last 24 hr 04/15/21 04/15/21 05:30 05:30 MCV 94.7 MCH 31.9 MCHC 33.7 RDW 13.8 Plt Count 339 MPV 10.0 Absolute Nucleated RBC 0.000 Nucleated RBC % (auto) 0.0 Anion Gap 17 Estim Creat Clear Calc 43.1 Estimated GFR 48 Random Glucose 120 H Calcium 9.7 D Microbiology Microbiology Results: Microbiology 04/13/21 07:04 Blood Culture - Preliminary Blood - Venous No growth after 48 hours. 04/13/21 07:04 Blood Culture - Preliminary Blood - Venous No growth after 48 hours. 04/13/21 Unknown Urine Culture - Final Urine clean catch - Urine nielsen top Assessment and Plan (1) Mass of left lung: Status: Acute Assessment and Plan: 75 year old women admitted with possible lung mass and PE New Lung mass, likely malignant CTA showing incasement of left pulmonary artery and left upper and lower pulmonary arteries by adenopathy/mass Seen by pulmonology, plan for bronchoscopy today - further management based on outcome Heme/onc follow-up as outpatient Initial concern over PE given V/Q scan results CTA done and showing no evidence of pulmonary embolism Bilateral lower extremity venous Doppler negative for DVT DC Lovenox COPD. no exacerbation duonebs supp oxygen if needed Hypertension continue home medications DVT prophylaxis wit lovenox Attending-Dr. Smith Quality Stroke Does the patient have a stroke diagnosis?: No VTE Prior VTE?: No VTE Risk Level:: Medical - moderate - high VTE Device Contraindication: Treatment Not Indicated VTE Drug Contraindication: N/A - Med Ordered
--- NOTE | 2021-04-15 12:44 | MHC.CM.PN ---
Per ROUNDS discussion, Patient is not yet medically cleared for dc (Bronchoscopy today). Home is the goal for dc and CM will follow for possible need to adjust the dc plan.
[2021-04-15] MEDS: Acetaminophen 325 MG TABLET 650 MG PO (15:30)
[2021-04-15] MEDS: Valsartan 160 MG TABLET PO (15:30)
[2021-04-15] MEDS: hydroCHLOROthiazide 12.5 MG TABLET PO (15:30)
[2021-04-15] MEDS: oxyCODONE HCl Immed Release 5 MG TABLET PO (15:50)
--- NOTE | 2021-04-15 16:32 | P.BOP_ITS ---
Brief Operative Note Date of Service: 04/15/21 Pre-op diagnosis: lung mass Post-op diagnosis: other (Lung cancer) Procedure: EBUS with TBNA and bronchoscopy with biopsy Implants: Surgeon: Mikael Lara MD Anesthesia: GLMA Was an International Marketing Executive used for this Procedure?: No Estimated blood loss (mL): 0 Pathology: other (Teddy endobronchial bx, tbna 4L) Condition: stable Disposition: floor
--- NOTE | 2021-04-15 20:43 | OP_ITS ---
SURGEON: Mikael Lara MD PREOPERATIVE DIAGNOSIS: POSTOPERATIVE DIAGNOSIS: Lung cancer. PROCEDURE PERFORMED: ESTIMATED BLOOD LOSS: COMPLICATIONS: ANESTHESIA: LMA. ASSISTANTS: SPECIMENS: PREOPERATIVE DIAGNOSES: Lung mass. PROCEDURES PERFORMED: Endobronchial ultrasound bronchoscopy with TBNA and bronchoscopy with biopsy. DESCRIPTION OF PROCEDURE: After the patient was adequately sedated, the flexible digital bronchoscope with endobronchial ultrasound was inserted via the LMA to the level of the larynx. Vocal cords moved symmetrically to the midline. Lidocaine was administered. After the lidocaine, the bronchoscope was then navigated, past the vocal cords to the level of the trachea. Using the ultrasound, we visualized the 4L station with significant masslike density consistent with the findings on the CAT scan. Further down the airways, the patient did have evidence of endobronchial disease consistent with cancer. The bronchoscope was navigated to the level of the 4L on the trachea on the left side and using ultrasound guidance, TBNA was performed, transbronchial needle aspiration was performed at that level and specimen was given to the rapid onsite teletray operator. The first specimen demonstrated evidence of malignant cells. Therefore, 2 additional passes were done and placed for additional testing. After confirming the diagnosis, the endobronchial ultrasound bronchoscopy was removed and replaced with the regular bronchoscopy. To note, the bronchoscope did fall to the ground. We did test it afterwards and it was working just fine. The regular bronchoscopy was done afterwards. The flexible digital bronchoscope again placed through the LMA to the level of the vocal cords without any difficulties. It was passed through the vocal cords to the level of the trachea. The tracheobronchial tree was examined to the subsegmental level. The patient did have some endobronchial disease in the left upper lobe area. There was some narrowing of the left upper lobe airways due to the what appeared to be fungating mass like density. Using forceps, endobronchial biopsies were collected and placed in formalin, sent to the pathology. No significant bleeding was noted after the procedure. Iced saline was used with good hemostasis. Epinephrine was not used. Bronchial washings from the left side were sent for cytology and microbiology. Then, the procedure was terminated. The patient tolerated the procedure well. Vital signs were stable throughout the procedure. The patient was able to go back to her room. INTERPRETATION: 1. Successful transbronchial needle aspiration of station 4L consistent with malignancy. 2. Bronchoscopy with endobronchial biopsies of the left upper lobe. 3. Bronchial washings from the left side. MD ISABELA Clements/JOSSELYN / [id number]
[2021-04-15] MEDS: Melatonin 3 MG TABLET 6 MG PO (20:50)
[2021-04-16 03:12] VITALS: BP 113/55; PULSE 108; RESP 18; TEMP 36.7; O2SAT 97
[2021-04-16] MEDS: Fluticasone/Vilanterol 200/25 BLST.W.DEV 1 PUFF INHALE (07:31)
[2021-04-16 07:33] VITALS: PULSE 92; O2SAT 98
[2021-04-16 09:42] VITALS: BP 113/51; PULSE 107
[2021-04-16] MEDS: 0.9 % Sodium Chloride Flush 3 ML SYRINGE IVFLUSH ×2 (09:42)
[2021-04-16] MEDS: hydroCHLOROthiazide 12.5 MG TABLET PO (09:42)
[2021-04-16] MEDS: Valsartan 160 MG TABLET PO (09:42)
[2021-04-16] MEDS: oxyCODONE HCl Immed Release 5 MG TABLET PO (10:26)
[2021-04-16] MEDS: Acetaminophen 325 MG TABLET 650 MG PO (10:27)
--- NOTE | 2021-04-16 10:58 | P.EN_ITS ---
Event Note Date of Service: 04/16/21 Event Note: THE PATIENT IS STATUS POST BRONCHOSCOPIC EXAM AND TRANSBRONCHIAL B IOPSY PERFORMED ON BY DR. BRISENO. PATHOLOGY REPORT IS PENDING CLINICALLY PATIENT SEEMS TO BE COMFORTABLE AND STABLE. TREATMENT PLAN WOULD BE ACCORDING TO THE BIOPSY REPORTS. PATIENT IS QUITE STABLE AND IF SHE WISHES SHE COULD BE DISCHARGED HOME TO CONTINUE ON HER REGULAR REGIMEN. SYMBICORT 160-4.52 PUFFS B.I.D., AND PROAIR 2 PUFFS Q 4-6 HOURS P.R.N. SPIRIVA HANDIHALER 1 INHALATION DAILY. SHE WOULD BE FOLLOWED OUTPATIENT, CLOSELY.
[2021-04-16 11:58] VITALS: O2SAT 94
--- NOTE | 2021-04-16 12:52 | PM.DS ---
DS: Providers Provider Date of Service: 04/16/21 Date of admission: 04/13/21 15:43 Primary care physician: Deandre Olivares MD Consults: 04/14/21 09:07 Consult to Pulmonology Routine Consulting Provider: Sarika Guillory Reason for consultation: lung mass, pe [facility] Elvia Lara DS: Diagnosis Discharge Diagnosis (1) Mass of left lung: Status: Acute DS: Summary Hospital Course Hospital Course: 75 year old women presenting with increased shortness of breath. ? She had been having some complaints of feeling dose something stuck in her throat over the last 2 weeks or so.? She had a soft tissue x-ray of the neck on 04/04 which showed no soft tissue mass. Initially she was noted to have an elevated lactic acid of 2.3 however this did come down to 1.6, coronavirus negative due to the shortness of breath she had V/Q scan which showed intermediate probability of pulmonary embolism.? CT CN showed emphysema with lap left upper lobe volume mass with a 1 cm spiculated left upper lobe nodule, enlarged left hilar and mediastinal lymph nodes and narrowing of the left pulmonary arteries and veins with question small liver lesions finding suspicious for primary lung neoplasm in particular small cell cancer. She reported a 10lbs elvin loss over 3 months. She was given therapeutic Lovenox and IV fluids.? She will be admitted for further management and treatment of COPD and new lung mass. Lung mass. Bronchoscopy/biospy completed with needle aspiration consistent with malignancy. Patient has no had any further shortness of breath. She will follow up with oncology as outpatient to follow up with biopsy results. Diagnosis looks like lung carcinoma. Patient is interested in treatment if this is the case. She is hemodynamically stable and will be discharged home. Time Spent with Patient Time attestation: Total time spent providing and/or coordinating discharge services: Discharge coordination time: Greater than 30 minutes Quality: Stroke Does the patient have a stroke diagnosis?: No Physical Exam Vital Signs: Vital Signs: Last Vital Signs Temp 98.0 F 04/16/21 03:12 Pulse 107 H 04/16/21 09:42 Resp 18 04/16/21 03:12 BP 113/51 L 04/16/21 09:42 Pulse Ox 97 04/16/21 03:12 Oxygen Flow Rate 3 04/13/21 06:35 Body Mass Index 25.8 Appearing in no acute distress head is normocephalic atraumatic eyes pupils are PERRLA sclera is anicteric mouth throat mucous membranes are intact and moist neck is supple no lymphadenopathy, no JVD noted lung sounds are clear to auscultation heart regular rate rhythm, clear S1, S2 positive bowel sounds, abdomen is soft, nontender neuro patient is alert x3, no focal deficits DS: Data Data Completed and Pending Pending studies at discharge: Pending at discharge 04/15/21 13:10 Cytology [PTH] Routine 04/15/21 13:14 Surgical [PTH] Routine 04/15/21 13:39 Cytology [PTH] Stat Labs on day of discharge: Preliminary micro results at discharge 04/13/21 07:04 Blood Culture - Preliminary Blood - Venous No growth after 48 hours. 04/13/21 07:04 Blood Culture - Preliminary Blood - Venous No growth after 48 hours. Discharge Plan Discharge Anticipated Discharge Date/Time: 04/16/21 12:45 Patient Disposition: Home, Self-Care Discharge Diagnosis: Lung mass Referrals: Emily Sheppard MD [Physician] - 1 Week (lung biospy results ) Deandre Olivares MD [Primary Care Provider] - 1 Week Discharge Medications: Continued irbesartan-hydrochlorothiazide 300-12.5 mg tablet 1 tab PO DAILY 90 Days Qty: 90 RF: 0 budesonide-formoterol [Symbicort] 160-4.5 mcg/actuation HFA aerosol inhaler 2 puff PO BID Qty: 10.2 RF: 2 Spiriva with HandiHaler 18 mcg capsule, w/inhalation device 1 cap inhalation DAILY Qty: 30 RF: 3 albuterol sulfate [ProAir HFA] 90 mcg/actuation HFA aerosol inhaler 2 puff inhalation Q4H PRN (Reason: Shortness Of Breath) RF: 0 calcium carbonate-vitamin D3 200 mg (500 mg) -400 unit Tablet 1 tab PO DAILY RF: 0 tramadol 200 mg tablet extended release 24 hr 200 mg PO DAILY 90 Days Qty: 90 RF: 0 tizanidine 2 mg tablet 2 mg PO DAILY PRN (Reason: for muscle spasm) Qty: 90 RF: 0 Discharge Orders: Discharge Order (Routine); Ordered 04/16/21 Ordered By: Elvia Lara Diet: advance to usual diet Activity on Discharge: As tolerated Stand Alone Forms: Patient Portal Discharge page Care Plan Goals: No further shortness of breath Health Concerns: Lung mass Plan of Treatment: Follow up with oncologist for lung biopsy results Follow up with primary care provider as needed Assessment: See discharge summary
--- NOTE | 2021-04-16 12:59 | MHC.CM.PN ---
Patient has been medically cleared for dc to home today, no services. CM met with Patient at bedside and addressed second IMM, providing Patient with original and placing a copy on the chart. Patient is aware of and in agreement with the dc plan.
== END 2021-04-16 14:45 | disposition home or self-care (01) | DRG 182 ==
LOC: HO.ED 13:17 → HO.EDOVER 16:05 → HO.IMC 17:12
PROVIDERS: Hospitalist; Physician Assistant Medical; Admitting Provider Nurse Practitioner Acute Care; Emergency Provider Emergency Medicine; PCP Internal Medicine; Visit Provider Nurse Practitioner Acute Care
PROC: 0BDG8ZX Extraction of Left Upper Lung Lobe, Via Natural or Artificial Opening Endoscopic, Diagnostic (ICD-10-PCS; principal; 2021-04-15 12:00)
DX: C34.12 Malignant neoplasm of upper lobe, left bronchus or lung (principal); M19.09 Primary osteoarthritis, other specified site; J43.9 Emphysema, unspecified; I10 Essential (primary) hypertension; Z20.822 Contact with and (suspected) exposure to COVID-19; Z87.891 Personal history of nicotine dependence; Z79.899 Other long term (current) drug therapy
CPT/HCPCS: 0241U; 36415; 70491; 71045; 71260; 71275; 78580; 80048; 80076; 81001; 83605; 83880; 84484; 85025; 85027; 85379; 85610; 85730; 87040; 87071; 87086; 87205; 88112; 88172; 88173; 88305; 88341; 88342; 93005; 93970; 94640; 96360; 96372; 99285; A9540; J0171; J1100; J1650; J2405; J3010; Q9967

== ENCOUNTER 2021-05-03 09:56 | Outpatient (REF) | payer MEDICARE, SELFPAY ==
--- NOTE | ~2021-05-03 | PE_ITS ---
EXAMINATION: PET/CT FUSION SKULL TO THIGH CLINICAL INFORMATION: PET/CT fusion skull to thigh. COMPARISON: CT chest 04/14/2021 TECHNIQUE: Following intravenous administration of 16.4 mCi of F18-FDG in the right forearm, whole-body emission scan was obtained approximately 90 minutes later from the skull base to the proximal thigh. 3.[address] transmission axial scan was obtained for correlative imaging without oral or IV contrast. 3-D reconstruction and color fusion studies were performed on a separate workstation. Baseline glucose measured 90 mg/dL. DLP: 428 mGy-cm. FINDINGS: SKULL BASE AND NECK: There is no abnormal metabolic activity seen within the visualized brain parenchyma or the skull base. Normal metabolic activity is seen along the anterior neck muscles. No abnormal metabolic activity is seen to suspect any abnormal lymph nodes. There is a focal area of abnormal activity seen in the right thyroid cartilage, SUV 3.94. On CT, there is no corresponding mass or lymph node in this region. No abnormal lymph nodes seen. CHEST: There is focal metabolic activity seen in the left upper lobe spiculated lesion on axial slice 170/3 corresponding to a round lesion with spiculations measuring 1 cm. SUV measurements of 4.6. No additional parenchymal abnormal activity is seen. There is intense metabolic activity in the left para-aortic and left suprahilar and left para-aortic lymph nodes with SUV measuring 9.0. No additional abnormal activity is seen. On CT, there is abnormal left para-aortic and left suprahilar lymphadenopathy. The lungs are well expanded and clear except for a left apical lung nodule. The central trachea and the bronchi are widely patent. Heart size and the great vessels are normal caliber. There is no pericardial effusion seen. ABDOMEN AND PELVIS: There is no abnormal metabolic activity seen in the solid organs except for mild activity seen in the bilateral kidney pelvis and bladder. No additional abnormal activity is seen in the pelvis or the upper thighs. On CT, the bladder is compressed with no abnormal activity. There is moderate stool and diverticula seen throughout the colon without diverticulitis or obstruction. There is moderate constipation. The small bowel loops are normal. An extrarenal bilateral kidney pelvis is seen. No radiopaque renal or gallbladder calculi. MSK: There is moderate metabolic activity seen in the lower thoracic spine corresponding to axial slice 162/3. Also visualized is mild metabolic activity seen in bilateral glenohumeral shoulder joints corresponding to mild arthropathy. There are degenerative disc changes in the dorsal and lumbar spine. PET/PET CT fusion skull to thigh IMPRESSION: Moderate metabolic activity seen in the left lung apex spiculated lesion likely primary lesion with metastatic left para-aortic and suprahilar lymphadenopathy. No additional abnormal metabolic activity seen in chest to suspect any metastatic disease. There is mild metabolic activity seen along right anterior thyroid cartilage but no corresponding lytic lesion seen on CT. Underlying bone marrow lesion cannot be excluded. There is mild metabolic activity in bilateral shoulder joints, likely degenerative changes.
== END 2021-05-03 09:57 | disposition home or self-care (01) ==
LOC: HO.PET 09:56
PROVIDERS: PCP Internal Medicine; Visit Provider Internal Medicine
DX: Z13.89 Encounter for screening for other disorder (principal)

== ENCOUNTER 2021-05-04 14:05 | Outpatient (REF) | payer MEDICARE, SELFPAY ==
--- NOTE | ~2021-05-04 | MR_ITS ---
MR BRAIN WITHOUT AND WITH CONTRAST CLINICAL INFORMATION: Staging of lung cancer. COMPARISON: Head CT 05/03/2021. TECHNIQUE: Multiplanar, multisequence MRI of the brain was obtained before and after the intravenous administration of 5.5 mL Gadavist. FINDINGS: There is no pathologic intracranial enhancement. There is global cerebral volume loss and there is moderate chronic microangiopathy. There is no hydrocephalus, extra-axial surface collection, or herniation. The major flow voids at the skull base are preserved. There is no acute infarct on diffusion-weighted imaging. There is no intracranial hemorrhage on the gradient recalled echo acquisition. The midline structures are normal. The cerebellar tonsils are normally positioned. The cerebellum and brainstem are normal. Advanced hypertrophic degenerative changes involving the right atlantoaxial articulation. Foci of bone marrow replacement within the right clivus, the C3 vertebral body, the C3 posterior elements, and the C5 vertebral body concerning for osseous metastatic disease that can be further assessed with bone scan. The visualized soft tissues are unremarkable. Mild mucosal thickening throughout the ethmoid air cells bilaterally. The mastoid air cells are clear. MR/MR head/brain wo/w con IMPRESSION: - There is no evidence of intracranial metastatic disease; no enhancing lesions intracranially. - Foci of bone marrow replacement within the right clivus, the C3 vertebral body, the C3 posterior elements, and the C5 vertebral body concerning for osseous metastatic disease that can be further assessed with bone scan. - There is global cerebral volume loss and there is moderate chronic microangiopathy. - Advanced hypertrophic degenerative changes involving the right atlantoaxial articulation.
== END 2021-05-04 14:06 | disposition home or self-care (01) ==
LOC: HO.MRI 14:05
PROVIDERS: PCP Internal Medicine; Visit Provider Internal Medicine
DX: C34.92 Malignant neoplasm of unspecified part of left bronchus or lung (principal)
CPT/HCPCS: 70553; A9585

== ENCOUNTER → 2021-05-05 08:47 | Day surgery (SDC) | payer MEDICARE, SELFPAY ==
[2021-05-05] VITALS (7 sets, daily range): BP systolic 132–152; BP diastolic 55–72; PULSE 95–100; RESP 18; TEMP 36.2; O2SAT 96–98; BMI 23.8
--- NOTE | ~2021-05-05 | IR_ITS ---
EXAMINATION: IR ULTRASOUND-GUIDED PORT PLACEMENT IR FLUOROSCOPY-GUIDED PORT PLACEMENT CLINICAL INFORMATION: Lung cancer for chemotherapy. COMPARISON: None TECHNIQUE: Following an explanation of the ultrasound-guided and fluoroscopy-guided placement of Port-A-Cath procedure, the benefits and risks, a written consent was obtained. Patient was placed supine on fluoroscopy table in IR suite. Preliminary ultrasound imaging was obtained of the right jugular vein and images obtained for documentation. The optimal area was marked, cleaned and draped along the right lateral neck. 1% lidocaine was injected at the puncture site. Under sterile ultrasound-guidance, a single wall needle was advanced and right jugular vein was punctured. After obtaining venous return, a thin guidewire was advanced through the needle and placed in the SVC and needle withdrawn. Over the needle and a 5-Gabonese dilator was placed. The dilator and the needle were anchored to the patient's drape with hemostats. Approximately 1 gauze length inferior lateral to the right neck incision 1% lidocaine was injected along the right anterior chest wall. A small skin incision was made and a small pocket created under the skin. 1% lidocaine was then inserted subcutaneously from the anterior chest wall incision to the neck skin incision. The port catheter anchored to the tunneler was then bluntly dissected from the anterior chest wall incision to the skin neck incision and the tunneler was pulled. The port hardware was then anchored along the right anterior chest wall with 3-0 nonabsorbable sutures. The catheter was sized to 19 cm. The 5-Gabonese dilator and the dilator was removed and a 0.035 J-wire was advanced through the catheter under fluoroscopy and placed in IVC. The dilator was removed and the dilator with peel-away sheath was inserted over the guidewire. The dilator and the guidewire was removed and a sized port catheter was then inserted through the peel-away sheath. The peel-away sheath was removed as the catheter was held in position. A final image was obtained documenting the catheter tip in proximal to mid SVC and the port hardware overlying the right anterior chest wall. Complete hemostasis was achieved at the right anterior neck incision and the incision was sutured with 3-0 nylon sutures. Sterile dressing applied postprocedure. Patient tolerated procedure extremely well. Conscious sedation was utilized at the puncture site. FINDINGS: On preliminary ultrasound imaging through the right neck the right jugular vein is widely patent. Approximately 19 cm long 6.6-Gabonese tunneled portacatheter insertion under fluoroscopy and ultrasound. The port chamber lies along the right anterior chest wall incision and secured underneath the skin. IR/IR us guide venous access IMPRESSION: Successful ultrasound-guided and fluoroscopy-guided placement of a 6.6-Gabonese Port-a-cath. The tip is in mid SVC and ready for use.
--- NOTE | ~2021-05-05 | IR_ITS ---
EXAMINATION: IR ULTRASOUND-GUIDED PORT PLACEMENT IR FLUOROSCOPY-GUIDED PORT PLACEMENT CLINICAL INFORMATION: Lung cancer for chemotherapy. COMPARISON: None TECHNIQUE: Following an explanation of the ultrasound-guided and fluoroscopy-guided placement of Port-A-Cath procedure, the benefits and risks, a written consent was obtained. Patient was placed supine on fluoroscopy table in IR suite. Preliminary ultrasound imaging was obtained of the right jugular vein and images obtained for documentation. The optimal area was marked, cleaned and draped along the right lateral neck. 1% lidocaine was injected at the puncture site. Under sterile ultrasound-guidance, a single wall needle was advanced and right jugular vein was punctured. After obtaining venous return, a thin guidewire was advanced through the needle and placed in the SVC and needle withdrawn. Over the needle and a 5-Ghanaian dilator was placed. The dilator and the needle were anchored to the patient's drape with hemostats. Approximately 1 gauze length inferior lateral to the right neck incision 1% lidocaine was injected along the right anterior chest wall. A small skin incision was made and a small pocket created under the skin. 1% lidocaine was then inserted subcutaneously from the anterior chest wall incision to the neck skin incision. The port catheter anchored to the tunneler was then bluntly dissected from the anterior chest wall incision to the skin neck incision and the tunneler was pulled. The port hardware was then anchored along the right anterior chest wall with 3-0 nonabsorbable sutures. The catheter was sized to 19 cm. The 5-Ghanaian dilator and the dilator was removed and a 0.035 J-wire was advanced through the catheter under fluoroscopy and placed in IVC. The dilator was removed and the dilator with peel-away sheath was inserted over the guidewire. The dilator and the guidewire was removed and a sized port catheter was then inserted through the peel-away sheath. The peel-away sheath was removed as the catheter was held in position. A final image was obtained documenting the catheter tip in proximal to mid SVC and the port hardware overlying the right anterior chest wall. Complete hemostasis was achieved at the right anterior neck incision and the incision was sutured with 3-0 nylon sutures. Sterile dressing applied postprocedure. Patient tolerated procedure extremely well. Conscious sedation was utilized at the puncture site. FINDINGS: On preliminary ultrasound imaging through the right neck the right jugular vein is widely patent. Approximately 19 cm long 6.6-Ghanaian tunneled portacatheter insertion under fluoroscopy and ultrasound. The port chamber lies along the right anterior chest wall incision and secured underneath the skin. IR/IR cvc insert tunnel w prt/cook jelly IMPRESSION: Successful ultrasound-guided and fluoroscopy-guided placement of a 6.6-Ghanaian Port-a-cath. The tip is in mid SVC and ready for use.
[2021-05-05 09:36] LABS: MANUAL DIFF FLAG NO
[2021-05-05 09:38] LABS: Basophils Percent Auto 0.5 % (0-2); Eosinophils Absolute Auto 0.2 X10*3/uL (0.0-0.4); Eosinophils Percent Auto 2.1 % (0-4); Hematocrit 37.8 % (37-47); Hemoglobin 12.4 g/dl (12.0-16.0); Imm Gran Abs Auto 0.02 X10*3/uL (0.00-0.03); Imm Gran Pct Auto 0.2 % (0.0-0.4); Lymphocytes Absolute Auto 1.7 X10*3/uL (1.2-4.9); Lymphocytes Percent Auto 20.1 % (20-40); Mean Corpuscular HGB Conc 32.8 g/dl (31.0-35.0); Mean Corpuscular Hemoglobin 32.1 pg (27.0-33.0); Mean Corpuscular Volume 97.9 fL (80-98); Mean Platelet Volume 9.2 fL (9.4-12.3); Monocytes Absolute Auto 0.8 X10*3/uL (0.1-1.2); Monocytes Percent Auto 9.6 % (2-11); Neutrophils Absolute Auto 5.7 X10*3/uL (2.0-8.3); Neutrophils Percent Auto 67.5 % (45-73); Platelet Count 316 X10*3/uL (160-400); Red Blood Count 3.86 X10*6/uL (4.20-5.50); Red Cell Distribution Width 13.8 % (11.0-16.0); White Blood Count 8.4 X10*3/uL (4.8-10.8)
[2021-05-05 09:44] LABS: INTERNATIONAL NORM RATIO 0.9 (0.9-1.1); Prothrombin Time 10.7 SEC (9.9-13.0)
[2021-05-05 13:10] LABS: Alanine Aminotransferase 13 U/L (0-31); Albumin Level 4.2 g/dL (3.5-5.0); Alkaline Phosphatase 64 U/L (39-117); Anion Gap 15 (12-20); Aspartate Amino Transferase 21 U/L (5-31); Bilirubin Total 0.3 mg/dL (0.0-1.0); Blood Urea Nitrogen 16 mg/dL (9-16); Calcium 9.5 mg/dL (8.4-10.2); Carbon Dioxide 23 mmol/L (22-29); Chloride 106 mmol/L (96-108); Creatinine Clr Calc Pharmacy 43.6; Estimated Glomerular Filt Rate > 60; Glucose Random 111 mg/dL (60-115); Magnesium 1.8 mg/dL (1.6-2.6); Potassium 3.9 mmol/L (3.3-5.1); Sodium 140 mmol/L (135-145); Total Protein 6.9 g/dL (6.5-8.0)
[2021-05-05 13:30] LABS: Thyroid Stimulating Hormone 1.17 uIU/mL (0.32-4.0)
== END | disposition home or self-care (01) ==
PROVIDERS: Internal Medicine; Radiology Diagnostic Radiology; PCP Internal Medicine; Visit Provider Radiology Diagnostic Radiology
DX: C34.92 Malignant neoplasm of unspecified part of left bronchus or lung (principal)
CPT/HCPCS: 36415; 36561; 76937; 80053; 82378; 83735; 84443; 85025; 85610; 85730; 99152; 99153; C1769; C1788; J0690; J1642; J2250; J3010

== ENCOUNTER 2021-05-20 15:29 | Inpatient (IN) | payer MEDICARE, SELFPAY ==
[2021-05-20] VITALS (7 sets, daily range): BP systolic 80–153; BP diastolic 41–89; PULSE 87–125; RESP 18–24; TEMP 36.9–38.6; O2SAT 94–97; BMI 21.4
--- NOTE | ~2021-05-20 | IR_ITS ---
EXAMINATION: IR PORT-A-CATH REMOVAL CLINICAL INFORMATION: Infected Port-A-Cath. COMPARISON: None TECHNIQUE/FINDINGS: All elements of maximal sterile barrier technique followed including use of cap, mask, sterile gown, sterile gloves, a sterile full body drape and hand hygiene. Also followed was skin preparation with 2% chlorhexidine for cutaneous antisepsis, and sterile ultrasound preparation with sterile gel and probe cover when applicable. The right chest over the port was prepped and draped in the usual sterile fashion. The skin and soft tissues were anesthetized with 1% lidocaine plain. A small incision over the port was made. The port was removed. The incision was irrigated with saline. The incision was left to heal by secondary intention and was packed with 1/4 inch iodoform gauze. Catheter tip was sent for culture. The patient received Versed 1.5 mg and fentanyl 75 mcg intravenously during the procedure. The total sedation time was 25 minutes. FLUOROSCOPY TIME: 0.1 minutes DAP: 2cGy.cm2 IR/IR cvc remove tunnel w prt/medical transport specialist IMPRESSION: Right internal jugular Port-A-Cath removal.
--- NOTE | ~2021-05-20 | XR_ITS ---
EXAMINATION: XR CHEST CLINICAL INFORMATION: Sepsis. COMPARISON: CTA of the chest dated from 04/14/2021. TECHNIQUE: AP view of the chest was obtained. FINDINGS: Unchanged appearance of the cardiomediastinal silhouette. Encasement of the structures of the left upper mediastinum by an underlying mass/lymphadenopathy are best appreciated on the recent CT from 04/14/2021. A right-sided CT compatible chest port is identified with the tip at the level of the innominate vein. The lungs are clear. Similar biapical pleural thickening/scarring No pleural effusion or pneumothorax. No acute osseous findings. Advanced degenerative changes in both humeral heads. XR/XR chest 1V IMPRESSION: Refer to a recent CT for better visualization of an encasing lesion in the left upper mediastinum. A right-sided CT compatible chest port terminates overlying the area of the innominate veins. Correlate for appropriate functioning and if indicated consider further advancement. Clear lungs.
--- NOTE | ~2021-05-20 | US_ITS ---
EXAMINATION: US VENOUS WITH DOPPLER UPPER EXTREMITY, RIGHT CLINICAL INFORMATION: Edema, pain right upper extremity. History small cell cancer lung. COMPARISON: CTA chest 04/14/2021 chest radiograph 05/20/2021 TECHNIQUE: Ultrasound of the upper extremity is performed using compression sonography and color and pulse Doppler flow with assessment of augmentation of flow. There is also imaging and Doppler assessment of the jugular and subclavian veins. Spectral analysis with color-flow imaging is performed. FINDINGS: The right internal jugular vein and the right subclavian vein are noncompressible and show no color flow on color Doppler are consistent with deep venous thrombosis. The right axillary vein is not visualized and cannot be assessed for additional thrombus. The right brachial vein, right radial vein, and the right superficial basilic and cephalic veins are patent showing compressibility and color Doppler flow. The ulnar vein is not seen with certainty possibly related to the edema. Results are called and discussed with Dr. Abarca at 1255 hours. US/US venous duplex UE RT IMPRESSION: 1. Positive for deep venous thrombosis right subclavian vein and right internal jugular vein. 2. Right axillary vein and right ulnar vein are not visualized and cannot assess for additional thrombus. 3. Right brachial, basilic, cephalic, and radial veins are patent.
[2021-05-20] MEDS: 0.9 % Sodium Chloride 1,000 ML 999 ML IV (16:04)
[2021-05-20] MEDS: Piperacillin Sodium/Tazobactam 4.5 GM in 0.9 % Sodium Chloride 100 ML IV (16:09)
[2021-05-20 16:18] LABS: INTERNATIONAL NORM RATIO 1.1 (0.9-1.1); MANUAL DIFF FLAG SCAN; PLT CLUMP 1; Prothrombin Time 12.5 SEC (9.9-13.0); Red Blood Count 2.85 X10*6/uL (4.20-5.50); SCAN SMEAR FLAG 1
[2021-05-20 16:20] LABS: Hematocrit 26.3 % (37-47); Hemoglobin 9.2 g/dl (12.0-16.0); Lymphocytes Absolute Auto 0.3 X10*3/uL (1.2-4.9); Mean Corpuscular Hemoglobin 32.3 pg (27.0-33.0); Mean Corpuscular Volume 92.3 fL (80-98); Mean Platelet Volume 10.3 fL (9.4-12.3); Monocytes Absolute Auto 0.1 X10*3/uL (0.1-1.2); Monocytes Percent Auto 27.5 % (2-11); Neutrophils Percent Auto 2.5 % (45-73); Partial Thromboplastin Time 25.1 SEC (24.1-38.0); Red Cell Distribution Width 12.4 % (11.0-16.0)
[2021-05-20 16:22] LABS: Anion Gap 15 (12-20); Bilirubin Total 0.4 mg/dL (0.0-1.0); Blood Urea Nitrogen 22 mg/dL (9-16); Carbon Dioxide 21 mmol/L (22-29); Chloride 104 mmol/L (96-108); Creatinine Clr Calc Pharmacy 37.7; Estimated Glomerular Filt Rate 48; Glucose Random 129 mg/dL (60-115); Potassium 3.4 mmol/L (3.3-5.1); Sodium 137 mmol/L (135-145)
[2021-05-20] MEDS: Acetaminophen 325 MG TABLET 975 MG PO (16:23)
[2021-05-20 16:27] LABS: Lactic Acid 2.1 mmol/L (0.5-2.0)
[2021-05-20] MEDS: vancomycin HCL 1,000 MG in 0.9 % Sodium Chloride 250 ML 270 MG IV (16:39)
--- NOTE | 2021-05-20 16:40 | ED_ITS ---
HPI - General Adult General Chief complaint: Dyspnea Stated complaint: sob-lung ca Time Seen by Provider: 05/20/21 15:44 Source: patient Limitations: no limitations History of Present Illness HPI narrative: This is a 76-year-old female who has history of lung cancer, had a MediPort placement done in her right chest about 2 weeks ago, came in today for shortness of breath, notes she has history of COPD as well as lung cancer, had a known she had a fever. Patient notes that a few days ago she did have vomiting and diarrhea but has not had any yesterday or today. She denies any unusual cough. She denies any swelling in her extremities. She denies abdominal pain. Related Data Home Medications Medication Instructions Recorded Confirmed albuterol sulfate 90 mcg/actuation 2 puff INHALATION Q4H PRN 04/13/21 05/20/21 aerosol inhaler (ProAir HFA) acetaminophen 650 mg 650 mg PO Q8H PRN 05/20/21 05/20/21 tablet,extended release (Tylenol 8 Hour) irbesartan 300 1 tab PO DAILY 05/20/21 05/20/21 mg-hydrochlorothiazide 12.5 mg tablet tiotropium bromide 18 mcg capsule 1 cap INHALATION BEDTIME 05/20/21 05/20/21 with inhalation device (Spiriva with HandiHaler) Previous Rx's Medication Instructions Recorded budesonide-formoterol HFA 160 2 puff PO BID #10.2 g 03/17/21 mcg-4.5 mcg/actuation aerosol inhaler (Symbicort) tizanidine 2 mg tablet 2 mg PO DAILY PRN #90 tab 03/18/21 Allergies Allergy/AdvReac Type Severity Reaction Status Date / Time No Known Allergies Allergy Verified 05/05/21 09:29 Review of Systems Review of Systems: Yes all other systems are reviewed and are negative Constitutional: Constitutional: Reports as per HPI and Denies fever(s) Eyes: Eyes: Reports as per HPI and Reports no additional eye complaints ENT: Reports system reviewed and no additional complaints, except as documented, Reports as per HPI, Denies nasal congestion, Denies nasal discharge and Denies sore throat Cardiovascular: Cardiovascular: Reports as per HPI, Denies chest pain and Reports dyspnea Respiratory: Respiratory: Reports as per HPI, Denies cough and Reports dyspnea Gastrointestinal: Gastrointestinal: Reports as per HPI, Denies abdominal pain, Reports diarrhea (Two days ago) and Reports vomiting (Two days ago) Genitourinary: Genitourinary: Reports as per HPI, Denies hematuria, Denies urinary frequency and Denies dysuria Musculoskeletal: Musculoskeletal: Reports no additional musculoskeletal complaints and Denies numbness Integumentary/Breasts: Skin/Breast: Reports as per HPI and Denies rash Neurologic: Reports as per HPI, Denies focal weakness, Denies numbness and Denies Sensory deficit (Neuro) Psychiatric: Psychiatric: Reports no additional psychiatric complaints and Reports as per HPI Endocrine: Endocrine: Reports no additional endocrine complaints and Reports as per HPI Hematologic/Lymphatic: Hematologic/Lymphatic: Reports no additional hematologic/lymphatic complaints, Reports as per HPI and Reports other (No peripheral edema) [facility] Past Medical History Medical History Cervicalgia COPD, severe Hypertension, essential Nephropathy Surgical History History of cervical discectomy History of surgery Family History Family History Father No problems noted. Mother No problems noted. Brother No problems noted. Brother No problems noted. Sister No problems noted. Daughter No problems noted. Daughter No problems noted. Son No problems noted. Son No problems noted. Son No problems noted. Son No problems noted. Son No problems noted. Social History Social History (Updated 05/02/21 @ 09:10 by Alberta Roche) Household Members: Spouse Housing: Homeless Housing Other:: duplex Do you presently have visiting nurse or other home services: No (roommate helps out) Alcohol intake: never Patient Tobacco Use Status: Former Tobacco user Quit Date: 2007 Tobacco use type: Cigarette Cigarette Packs Per Day: 2 Use of substances other than those prescribed or required for medical reasons: No Advance Directives: No Advance Directives Information Provided: No Advance Directives Date on File: 04/13/21 service: No Current occupational status: retired Physical Exam Vital Signs: Vital Signs: Last Vital Signs Temp 99.4 F 05/20/21 17:14 Pulse 104 H 05/20/21 18:00 Resp 18 05/20/21 18:00 BP 80/41 L 05/20/21 18:00 Pulse Ox 96 05/20/21 18:00 Body Mass Index 21.4 Const: General: cooperative, no acute distress and alert Orientation/consciousness: patient oriented x3 HENMT: Head: Yes normal to inspection Eyes: General: appearance normal, both eyes and all related structures Eyelids: Yes eyelids normal Conjunctivae: conjunctivae normal Pupils: Equal, round and reactive pupils present Neck: Neck: Yes normal visual inspection and Yes supple Chest: Other: MediPort right chest with localized erythema and tenderness, no fluctuance. Erythema extends up to right base of neck in a linear fashion. Steri-Strips half off right base of neck. Small circular bandage and apparent sutures in place over port, no drainage Resp: Effort & Inspection: normal respiratory effort Auscultation: clear to auscultation bilaterally Cardio: Rate: regular rate Rhythm: regular rhythm Heart sounds: S1 normal heart sound present, S2 normal heart sound present, no gallops, no murmurs and no rubs GI: Palpation (GI): Soft to palpation, nontender and Other GI palpation findings present (Non-distended) Auscultation: normal bowel sounds Skin: General skin exam: no rashes or lesions noted Neuro: General: patient oriented x3, no focal motor deficits and CN's II-XI intact bilaterally Cranial nerves: Yes Equal, round and reactive pupils present Cognition (Neuro): normal cognition Motor exam (neuro): 5/5 motor strength present throughout Sensory Exam: No Sensory deficit (Neuro) Extrem: General: Yes normal to inspection and Yes no pedal edema Psych: Appearance: grossly normal Affect: normal affect Medical Decision Making [facility] Narrative Medical decision making narrative: Patient with lung cancer, had a port placed a few weeks ago in her right chest, presented today with shortness of breath, had incidental finding a fever noted with associated tachycardia. Port area appears infected with cellulitic changes. Discussed with Dr. West of Interventional Radiology who did not recommend removing the port. Also discussed with Oncology on-call who recommended IV antibiotics and leaving a port in place for now, as it may just be a skin infection as opposed to a deeper infection. Patient was started on normal saline 1 L IV bolus immediately, given Tylenol, ordered of Zosyn and vancomycin. Her blood pressure has dropped subsequent to antibiotics administration and she is being given a bolus of lactated Ringer's 1 L. patient is being admitted to the hospital, Dr. Abarca accepting. Patient is on chemotherapy, had chemotherapy within the last week, and is pancytopenic, will need isolation given her absolute neutropenia Critical care time for this life-threatening illnessexclusive of all other billable procedures was approximately 45 minutes, including review of labs, management of the patient's hypotension, consultation with specialists and the hospitalist. Lab Data Lab results reviewed: Yes I reviewed the patient's lab results. Result diagrams: 05/20/21 16:00 05/20/21 16:00 Labs: Lab Results 05/20/21 05/20/21 05/20/21 Range/Units 16:00 16:00 16:00 WBC 0.4 L* (4.8-10.8) X10*3/uL RBC 2.85 L (4.20-5.50) X10*6/uL Hgb 9.2 L (12.0-16.0) g/dl Hct 26.3 L (37-47) % MCV 92.3 (80-98) fL MCH 32.3 (27.0-33.0) pg MCHC 35.0 (31.0-35.0) g/dl RDW 12.4 (11.0-16.0) % Plt Count 42 L D (160-400) X10*3/uL MPV 10.3 (9.4-12.3) fL Immature Gran % (Auto) 0.0 (0.0-0.4) % Neut % (Auto) 2.5 L (45-73) % Lymph % (Auto) 70.0 H (20-40) % [place] % (Auto) 27.5 H (2-11) % Eos % (Auto) 0.0 (0-4) % Baso % (Auto) 0.0 (0-2) % Lymph # (Auto) 0.3 L (1.2-4.9) X10*3/uL [place] # (Auto) 0.1 (0.1-1.2) X10*3/uL Eos # (Auto) 0.0 (0.0-0.4) X10*3/uL Baso # (Auto) 0.0 (0.0-0.2) X10*3/uL Abs Immat Gran (auto) 0.00 (0.00-0.03) X10*3/uL Absolute Neuts (auto) 0.0 L (2.0-8.3) X10*3/uL Absolute Nucleated RBC 0.000 (0.0-0.012) X10*3/uL Nucleated RBC % (auto) 0.0 (0.0-0.2) /100WBC Smear Tech's Comments VERIFIED PT 12.5 (9.9-13.0) SEC INR 1.1 (0.9-1.1) APTT 25.1 (24.1-38.0) SEC Sodium 137 (135-145) mmol/L Potassium 3.4 (3.3-5.1) mmol/L Chloride 104 (96-108) mmol/L Carbon Dioxide 21 L (22-29) mmol/L Anion Gap 15 (12-20) BUN 22 H (9-16) mg/dL Creatinine 1.11 (0.5-1.4) mg/dL Estim Creat Clear Calc 37.7 Estimated GFR 48 Random Glucose 129 H (60-115) mg/dL Lactic Acid (0.5-2.0) mmol/L Lactic Acid Fup @ 2Hr (0.5-2.0) mmol/L Calcium 9.0 (8.4-10.2) mg/dL Total Bilirubin 0.4 (0.0-1.0) mg/dL Urine Color Urine Appearance Urine pH (5.0-8.0) Ur Specific [place] (1.005-1.025) Urine Protein (NEG-TRACE) MG/DL Urine Glucose (UA) (NEG) MG/DL Urine Ketones (NEG) MG/DL Urine Blood (NEG) Urine Nitrite (NEG) Ur Leukocyte Esterase (NEG) Urine RBC (0) /HPF Urine WBC (0-4) /HPF Ur Squamous Epith Cells /LPF Amorphous Sediment /LPF Urine Bacteria /LPF COVID-19 (MICHAEL) (Negative) COVID-19 Clin Com 05/20/21 05/20/21 05/20/21 Range/Units 16:00 17:33 17:39 WBC (4.8-10.8) X10*3/uL RBC (4.20-5.50) X10*6/uL Hgb (12.0-16.0) g/dl Hct (37-47) % MCV (80-98) fL MCH (27.0-33.0) pg MCHC (31.0-35.0) g/dl RDW (11.0-16.0) % Plt Count (160-400) X10*3/uL MPV (9.4-12.3) fL Immature Gran % (Auto) (0.0-0.4) % Neut % (Auto) (45-73) % Lymph % (Auto) (20-40) % [place] % (Auto) (2-11) % Eos % (Auto) (0-4) % Baso % (Auto) (0-2) % Lymph # (Auto) (1.2-4.9) X10*3/uL [place] # (Auto) (0.1-1.2) X10*3/uL Eos # (Auto) (0.0-0.4) X10*3/uL Baso # (Auto) (0.0-0.2) X10*3/uL Abs Immat Gran (auto) (0.00-0.03) X10*3/uL Absolute Neuts (auto) (2.0-8.3) X10*3/uL Absolute Nucleated RBC (0.0-0.012) X10*3/uL Nucleated RBC % (auto) (0.0-0.2) /100WBC Smear Tech's Comments PT (9.9-13.0) SEC INR (0.9-1.1) APTT (24.1-38.0) SEC Sodium (135-145) mmol/L Potassium (3.3-5.1) mmol/L Chloride (96-108) mmol/L Carbon Dioxide (22-29) mmol/L Anion Gap (12-20) BUN (9-16) mg/dL Creatinine (0.5-1.4) mg/dL Estim Creat Clear Calc Estimated GFR Random Glucose (60-115) mg/dL Lactic Acid 2.1 H* (0.5-2.0) mmol/L Lactic Acid Fup @ 2Hr (0.5-2.0) mmol/L Calcium (8.4-10.2) mg/dL Total Bilirubin (0.0-1.0) mg/dL Urine Color STRAW Urine Appearance HAZY Urine pH 5.5 (5.0-8.0) Ur Specific [place] 1.010 (1.005-1.025) Urine Protein TRACE (NEG-TRACE) MG/DL Urine Glucose (UA) NEG (NEG) MG/DL Urine Ketones NEG (NEG) MG/DL Urine Blood TRACE (NEG) Urine Nitrite NEG (NEG) Ur Leukocyte Esterase NEG (NEG) Urine RBC 0-2 (0) /HPF Urine WBC 0-2 (0-4) /HPF Ur Squamous Epith Cells 3+ /LPF Amorphous Sediment 1+ /LPF Urine Bacteria TRACE /LPF COVID-19 (MICHAEL) Negative (Negative) COVID-19 Clin Com See Note 05/20/21 Range/Units 18:57 WBC (4.8-10.8) X10*3/uL RBC (4.20-5.50) X10*6/uL Hgb (12.0-16.0) g/dl Hct (37-47) % MCV (80-98) fL MCH (27.0-33.0) pg MCHC (31.0-35.0) g/dl RDW (11.0-16.0) % Plt Count (160-400) X10*3/uL MPV (9.4-12.3) fL Immature Gran % (Auto) (0.0-0.4) % Neut % (Auto) (45-73) % Lymph % (Auto) (20-40) % [place] % (Auto) (2-11) % Eos % (Auto) (0-4) % Baso % (Auto) (0-2) % Lymph # (Auto) (1.2-4.9) X10*3/uL [place] # (Auto) (0.1-1.2) X10*3/uL Eos # (Auto) (0.0-0.4) X10*3/uL Baso # (Auto) (0.0-0.2) X10*3/uL Abs Immat Gran (auto) (0.00-0.03) X10*3/uL Absolute Neuts (auto) (2.0-8.3) X10*3/uL Absolute Nucleated RBC (0.0-0.012) X10*3/uL Nucleated RBC % (auto) (0.0-0.2) /100WBC Smear Tech's Comments PT (9.9-13.0) SEC INR (0.9-1.1) APTT (24.1-38.0) SEC Sodium (135-145) mmol/L Potassium (3.3-5.1) mmol/L Chloride (96-108) mmol/L Carbon Dioxide (22-29) mmol/L Anion Gap (12-20) BUN (9-16) mg/dL Creatinine (0.5-1.4) mg/dL Estim Creat Clear Calc Estimated GFR Random Glucose (60-115) mg/dL Lactic Acid (0.5-2.0) mmol/L Lactic Acid Fup @ 2Hr 1.6 (0.5-2.0) mmol/L Calcium (8.4-10.2) mg/dL Total Bilirubin (0.0-1.0) mg/dL Urine Color Urine Appearance Urine pH (5.0-8.0) Ur Specific [place] (1.005-1.025) Urine Protein (NEG-TRACE) MG/DL Urine Glucose (UA) (NEG) MG/DL Urine Ketones (NEG) MG/DL Urine Blood (NEG) Urine Nitrite (NEG) Ur Leukocyte Esterase (NEG) Urine RBC (0) /HPF Urine WBC (0-4) /HPF Ur Squamous Epith Cells /LPF Amorphous Sediment /LPF Urine Bacteria /LPF COVID-19 (MICHAEL) (Negative) COVID-19 Clin Com Imaging Data Chest x-ray: Radiologist's impression: IMPRESSION: ? Refer to a recent CT for better visualization of an encasing lesion in the left upper mediastinum. ? A right-sided CT compatible chest port terminates overlying the area of the innominate veins. Correlate for appropriate functioning and if indicated consider further advancement. ? Clear lungs. Discharge Plan Discharge Clinical Impression: Cellulitis of chest wall, Infected venous access port, Sepsis, Pancytopenia Patient Disposition: Admitted As Inpatient
[2021-05-20 16:53] LABS: Platelet Count 42 X10*3/uL (160-400)
[2021-05-20 16:57] LABS: White Blood Count 0.4 X10*3/uL (4.8-10.8)
[2021-05-20 16:59] LABS: SLIDE REVIEW VERIFIED
[2021-05-20 17:48] LABS: Appearance Urine HAZY; Color Urine STRAW; Glucose Urine UA NEG (NEG); Leukocyte Esterase Urine NEG (NEG); Nitrite Urine NEG (NEG); PH 5.5 (5.0-8.0); UACC Culture Trigger NO; Urine Blood TRACE (NEG); Urine Ketones NEG (NEG); Urine Protein TRACE MG/DL (NEG-TRACE)
[2021-05-20 17:55] LABS: Squamous Epithelial Cell Urine 3+ /LPF
[2021-05-20 17:57] LABS: Amorphous Sediment Urine 1+ /LPF; Bacteria Urine TRACE /LPF; RBC Urine 0-2 /HPF (0); WBC Urine 0-2 /HPF (0-4)
[2021-05-20 18:03] LABS: COVID-19 Test Negative (Negative)
[2021-05-20 18:05] LABS: Reflex Lactate? Lactic Acid Added
[2021-05-20] MEDS: Lactated Ringers 1,000 ML 999 ML IV (18:57)
[2021-05-20 19:25] LABS: ~Lactic Acid-LAB USE ONLY 1.6 mmol/L (0.5-2.0)
--- NOTE | 2021-05-20 19:33 | PC.NURSE ---
Prashant Caraballo ([facility]) [phone] to be updated with information.
[2021-05-20] MEDS: Piperacillin Sodium/Tazobactam 3.375 GM in 0.9 % Sodium Chloride 50 ML IV (21:41)
[2021-05-20] MEDS: 0.9 % Sodium Chloride 1,000 ML 100 ML IVCONT (21:41)
[2021-05-20] MEDS: Albuterol Sulfate 90 MCG 8 GM INHALER 2 PUFF INHALE (21:44)
[2021-05-20] MEDS: oxyCODONE HCl Immed Release 5 MG TABLET PO (23:08)
[2021-05-20] MEDS: Melatonin 3 MG TABLET 6 MG PO (23:09)
[2021-05-21] VITALS (9 sets, daily range): BP systolic 112–138; BP diastolic 53–75; PULSE 95–111; RESP 18–20; TEMP 36.5–37.6; O2SAT 95–98; BMI 21.1
[2021-05-21] MEDS: Piperacillin Sodium/Tazobactam 3.375 GM in 0.9 % Sodium Chloride 50 ML IV ×4 (05:06→21:27)
[2021-05-21] MEDS: oxyCODONE HCl Immed Release 5 MG TABLET PO ×4 (05:09→23:05)
[2021-05-21] MEDS: 0.9 % Sodium Chloride 1,000 ML 100 ML IVCONT ×2 (06:24→15:43)
[2021-05-21] MEDS: Albuterol/Iprat 2.5/0.5MG 3 ML AMPUL.NEB INHALE ×3 (06:49→23:06)
[2021-05-21 06:58] LABS: Eosinophils Percent Auto 1.1 % (0-4); MANUAL DIFF FLAG SCAN; PLT CLUMP 1; Red Blood Count 2.53 X10*6/uL (4.20-5.50); Red Cell Distribution Width 12.4 % (11.0-16.0); SCAN SMEAR FLAG 1
[2021-05-21 07:00] LABS: Hematocrit 23.5 % (37-47); Hemoglobin 8.2 g/dl (12.0-16.0); Imm Gran Abs Auto 0.02 X10*3/uL (0.00-0.03); Imm Gran Pct Auto 2.2 % (0.0-0.4); Lymphocytes Absolute Auto 0.5 X10*3/uL (1.2-4.9); Lymphocytes Percent Auto 59.3 % (20-40); Mean Corpuscular HGB Conc 34.9 g/dl (31.0-35.0); Mean Corpuscular Hemoglobin 32.4 pg (27.0-33.0); Mean Corpuscular Volume 92.9 fL (80-98); Mean Platelet Volume 10.4 fL (9.4-12.3); Monocytes Absolute Auto 0.3 X10*3/uL (0.1-1.2); Monocytes Percent Auto 34.1 % (2-11); Neutrophils Percent Auto 3.3 % (45-73)
[2021-05-21 07:16] LABS: Anion Gap 14 (12-20); Blood Urea Nitrogen 13 mg/dL (9-16); Calcium 7.8 mg/dL (8.4-10.2); Carbon Dioxide 19 mmol/L (22-29); Chloride 108 mmol/L (96-108); Creatinine Clr Calc Pharmacy 51.2; Estimated Glomerular Filt Rate > 60; Glucose Random 123 mg/dL (60-115); Potassium 3.4 mmol/L (3.3-5.1); Sodium 138 mmol/L (135-145)
[2021-05-21 07:27] LABS: Platelet Count 39 X10*3/uL (160-400); White Blood Count 0.9 X10*3/uL (4.8-10.8)
[2021-05-21 07:39] LABS: SLIDE REVIEW VERIFIED
[2021-05-21] MEDS: Fluticasone/Vilanterol 200/25 BLST.W.DEV 1 PUFF INHALE (07:58)
--- NOTE | 2021-05-21 11:01 | MHC.CM.PN ---
CM MET WITH PT WHO REPORTS SHE LIVES WITH HER S/O BUT DOS NOT WANT TO RETURN. PT REPORTS HE IS NO LONGER ABLE TO DRIVE HER TO [facility] AND SHE HAS NO TRANSPORTATION PT REPORTS SHE NEEDS TO LIVE IN A SNF BECAUSE SHE CANNOT CARE FOR HERSELF PT DENIES USING DME ALTHOUGH SHE REPORTS SHE HAS A CANE AND A WALKER PT ALSO DENIES HAVING AY HOME SERVICES PT REPORTS SHE HAS BOTH [employer] AND [employer] AND IT IS A COMBINED NURSING HOME PLAN. CM MADE REFERRALS BASED ON PTS PREFERENCES PT WILL NEED A PT EVAL AND MAY BENEFIT FROM A CARE CONSULT SHE IS VERY TEARFUL THROUGHOUT CONVERSATION. DC PLAN TBD PENDING INSURANCE VERIFICATION AND BED OFFERS
[2021-05-21] MEDS: Valsartan 160 MG TABLET PO (11:05)
--- NOTE | 2021-05-21 12:32 | P.HPHOSP_ITS ---
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 On 05/05/2021 patient underwent placement of a right-sided tunnel catheter via IR for planned chemotherapy. Per notes this was without incident. Patient went home and noted over the last 2 weeks initially developed some nausea and over the last several days prior to admission fever and chills; she states fevers to 101. In the emergency room, tunnel site found to be warm and erythematous and patient febrile. White count initially 0.4. Given Vanco and Zosyn. Call placed to admit patient for treatment of same. ER documentation states IR/oncology recommended leaving catheter in treat with antibiotics and ID consult Review of Systems Review of Systems: Complains of fever and chills Denies chest pain; chest wall pain over site No further nausea vomiting or diarrhea PMFSH Medical History Cervicalgia COPD, severe Hypertension, essential Nephropathy Family History Father No problems noted. Mother No problems noted. Brother No problems noted. Brother No problems noted. Sister No problems noted. Daughter No problems noted. Daughter No problems noted. Son No problems noted. Son No problems noted. Son No problems noted. Son No problems noted. Son No problems noted. Pertinent family history: . Surgical History History of cervical discectomy History of surgery Social History Household Members: Significant Other Housing: Apartment Housing Other:: duplex Do you presently have visiting nurse or other home services: No Alcohol intake: never Patient Tobacco Use Status: Former Tobacco user Quit Date: 2007 Tobacco use type: Cigarette Cigarette Packs Per Day: 2 Use of substances other than those prescribed or required for medical reasons: No Currently Displaying Signs/Symptoms of Drug Intoxication Withdrawal: No Any prior treatment program specific to substance use: No Have you been hit, kicked, punched, or otherwise hurt by someone within the past year? If so, by whom?: No Do you feel safe in your current relationship?: No Is there a partner from a previous relationship who is making you feel unsafe now?: No Are you made to feel afraid or neglected: Yes Advance Directives: No Advance Directives Information Provided: No Advance Directives Date on File: 04/13/21 Do you have thoughts of harming others: None Do you have a plan to hurt others: No Plan Recently lost weight without trying: Yes How much weight loss: Unsure Eating poorly because of decreased appetite: Yes Nutrition screen score: 5 Nutrition Risks: Poor intake 0-25% >4 days Patient : No : No Poor oral hygiene: No service: No Current occupational status: unemployed, retired and disabled Meds Allergies Allergy/AdvReac Type Severity Reaction Status Date / Time No Known Allergies Allergy Verified 05/05/21 09:29 Active Medications: Current Medications Acetaminophen (Acetaminophen 325 Mg Tablet) 650 mg PO Q8H PRN PRN Reason: Pain Albuterol Sulfate (Albuterol Sulfate 90 Mcg 8 Gm Inhaler) 2 puff INHALE Q4H PRN PRN Reason: Shortness Of Breath Last Admin: 05/20/21 21:44 Dose: 2 puff Documented by: Albuterol/Ipratropium (Albuterol/Iprat 2.5/0.5mg 3 Ml Ampul.Neb) 3 ml INHALE RQ4H PRN PRN Reason: Shortness of Breath/Wheezing Last Admin: 05/21/21 06:49 Dose: 3 ml Documented by: Enoxaparin Sodium (Enoxaparin Sodium 40 Mg/0.4 Ml Syringe) 40 mg SUBCUT Q24H [facility] Last Admin: 05/20/21 21:53 Dose: Not Given Documented by: Fluticasone/Vilanterol (Fluticasone/Vilanterol 200/25 Blst.W.Dev) 1 puff INHALE DAILY [facility] Last Admin: 05/21/21 07:58 Dose: 1 puff Documented by: Hydrochlorothiazide (Hydrochlorothiazide 12.5 Mg Tablet) 12.5 mg PO DAILY [facility] Sodium Chloride (Ns) 1,000 mls @ 100 mls/hr IVCONT .Q10H [facility] Last Admin: 05/21/21 06:24 Dose: 100 mls/hr Documented by: Piperacillin Sod/Tazobactam (Sod 3.375 gm/ Sodium Chloride) 50 mls @ 100 mls/hr IV Q6H [facility] Last Admin: 05/21/21 11:04 Dose: 100 mls/hr Documented by: Vancomycin HCl 1,000 mg/ (Sodium Chloride) 270 mls @ 270 mls/hr IV Q24H [facility] Melatonin (Melatonin 3 Mg Tablet) 6 mg PO BEDTIME PRN PRN Reason: Insomnia Last Admin: 05/20/21 23:09 Dose: 6 mg Documented by: Ondansetron HCl (Ondansetron Hcl 4 Mg/2 Ml Vial) 4 mg IVPUSH Q8H PRN PRN Reason: Nausea and Vomiting Oxycodone HCl (Oxycodone Hcl Immed Release 5 Mg Tablet) 5 mg PO Q6H PRN PRN Reason: Pain, Moderate (Pain Scale 4-6 Last Admin: 05/21/21 11:07 Dose: 5 mg Documented by: Pharmacy Consult (Consult Rx Perform Med Rec) 1 each MISCELLANE ONCE PRN PRN Reason: Consult order Pharmacy Consult (Consult Rx Vancomycin Dosing) 1 each MISCELLANE DAILY PRN PRN Reason: Consult order Sodium Chloride (0.9 % Sodium Chloride Flush 3 Ml Syringe) 3 ml IVFLUSH QSHIFT [facility] Last Admin: 05/21/21 11:07 Dose: Not Given Documented by: Tiotropium [place] (Tiotropium [place] 18 Mcg Cap.W.Dev) 1 puff INHALE RDAILY [facility] Last Admin: 05/21/21 07:58 Dose: 1 puff Documented by: Tizanidine HCl (Tizanidine Hcl 4 Mg Tablet) 2 mg PO DAILY PRN PRN Reason: for muscle spasm Valsartan (Valsartan 160 Mg Tablet) 160 mg PO DAILY [facility] Last Admin: 05/21/21 11:05 Dose: 160 mg Documented by: Home Medications Medication Instructions Recorded Confirmed Last Taken Type albuterol sulfate 90 mcg/actuation 2 puff INHALATION Q4H PRN 04/13/21 05/20/21 Unknown History aerosol inhaler (ProAir HFA) acetaminophen 650 mg 650 mg PO Q8H PRN 05/20/21 05/20/21 05/20/21 History tablet,extended release (Tylenol 8 Hour) irbesartan 300 1 tab PO DAILY 05/20/21 05/20/21 05/20/21 History mg-hydrochlorothiazide 12.5 mg tablet tiotropium bromide 18 mcg capsule 1 cap INHALATION BEDTIME 10/08/21 10/08/21 10/07/21 History with inhalation device (Spiriva with HandiHaler) Physical Exam Vital Signs and Narrative: Vital Signs: Last Vital Signs Temp 98.7 F 05/21/21 07:21 Pulse 100 05/21/21 11:05 Resp 18 05/21/21 07:21 BP 112/53 L 05/21/21 11:05 Pulse Ox 97 05/21/21 07:21 Body Mass Index 21.1 Const: Other: Awake alert oriented x3 no acute distress HENMT: Other: Oropharynx clear, membranes moist Chest: Other: Right superior chest erythematous from right lateral neck down to site of port. Area is warm to touch and extremely tender Resp: Other: Clear to auscultation bilaterally. No rales rhonchi or wheezes Cardio: Other: No S4; positive S1-S2; no S3 murmurs rubs gallops GI: Other: Soft nontender nondistended with normoactive bowel sounds. No appreciable hepatosplenomegaly Neuro: Other: Cranial nerves 2-12 grossly intact as tested motor is 5/5 all extremity sensation is intact. Gait not tested Extrem: Other: No edema bilaterally Results Labs CBC and Chem 7: 05/21/21 06:24 05/21/21 06:24 Labs: Laboratory Results - last 24 hr 05/20/21 05/20/21 05/20/21 16:00 16:00 16:00 MCV 92.3 MCH 32.3 MCHC 35.0 RDW 12.4 Plt Count 42 L D MPV 10.3 Immature Gran % (Auto) 0.0 Neut % (Auto) 2.5 L Lymph % (Auto) 70.0 H [place] % (Auto) 27.5 H Eos % (Auto) 0.0 Baso % (Auto) 0.0 Lymph # (Auto) 0.3 L [place] # (Auto) 0.1 Eos # (Auto) 0.0 Baso # (Auto) 0.0 Abs Immat Gran (auto) 0.00 Absolute Neuts (auto) 0.0 L Absolute Nucleated RBC 0.000 Nucleated RBC % (auto) 0.0 Smear Tech's Comments VERIFIED Smear Path Review PT 12.5 INR 1.1 APTT 25.1 Anion Gap 15 Estim Creat Clear Calc 37.7 Estimated GFR 48 Random Glucose 129 H Lactic Acid Lactic Acid Fup @ 2Hr Calcium 9.0 Total Bilirubin 0.4 Urine Color Urine Appearance Urine pH Ur Specific [place] Urine Protein Urine Glucose (UA) Urine Ketones Urine Blood Urine Nitrite Ur Leukocyte Esterase Urine RBC Urine WBC Ur Squamous Epith Cells Amorphous Sediment Urine Bacteria COVID-19 (MICHAEL) COVID-19 Clin Com 05/20/21 05/20/21 05/20/21 16:00 17:33 17:39 MCV MCH MCHC RDW Plt Count MPV Immature Gran % (Auto) Neut % (Auto) Lymph % (Auto) [place] % (Auto) Eos % (Auto) Baso % (Auto) Lymph # (Auto) [place] # (Auto) Eos # (Auto) Baso # (Auto) Abs Immat Gran (auto) Absolute Neuts (auto) Absolute Nucleated RBC Nucleated RBC % (auto) Smear Tech's Comments Smear Path Review PT INR APTT Anion Gap Estim Creat Clear Calc Estimated GFR Random Glucose Lactic Acid 2.1 H* Lactic Acid Fup @ 2Hr Calcium Total Bilirubin Urine Color STRAW Urine Appearance HAZY Urine pH 5.5 Ur Specific [place] 1.010 Urine Protein TRACE Urine Glucose (UA) NEG Urine Ketones NEG Urine Blood TRACE Urine Nitrite NEG Ur Leukocyte Esterase NEG Urine RBC 0-2 Urine WBC 0-2 Ur Squamous Epith Cells 3+ Amorphous Sediment 1+ Urine Bacteria TRACE COVID-19 (MICHAEL) Negative COVID-19 Clin Com See Note 05/20/21 05/21/21 05/21/21 18:57 06:24 06:24 MCV 92.9 MCH 32.4 MCHC 34.9 RDW 12.4 Plt Count 39 L MPV 10.4 Immature Gran % (Auto) 2.2 H Neut % (Auto) 3.3 L Lymph % (Auto) 59.3 H [place] % (Auto) 34.1 H Eos % (Auto) 1.1 Baso % (Auto) 0.0 Lymph # (Auto) 0.5 L [place] # (Auto) 0.3 Eos # (Auto) 0.0 Baso # (Auto) 0.0 Abs Immat Gran (auto) 0.02 Absolute Neuts (auto) 0.0 L Absolute Nucleated RBC 0.000 Nucleated RBC % (auto) 0.0 Smear Tech's Comments VERIFIED Smear Path Review Cancelled PT INR APTT Anion Gap 14 Estim Creat Clear Calc 51.2 Estimated GFR > 60 Random Glucose 123 H Lactic Acid Lactic Acid Fup @ 2Hr 1.6 Calcium 7.8 L D Total Bilirubin Urine Color Urine Appearance Urine pH Ur Specific [place] Urine Protein Urine Glucose (UA) Urine Ketones Urine Blood Urine Nitrite Ur Leukocyte Esterase Urine RBC Urine WBC Ur Squamous Epith Cells Amorphous Sediment Urine Bacteria COVID-19 (MICHAEL) COVID-19 Clin Com Imaging Radiologist's Impressions: Impressions Chest X-Ray 05/20/21 15:45 IMPRESSION: Refer to a recent CT for better visualization of an encasing lesion in the left upper mediastinum. A right-sided CT compatible chest port terminates overlying the area of the innominate veins. Correlate for appropriate functioning and if indicated consider further advancement. Clear lungs. Assessment and Plan (1) Infected venous access port: Status: Acute (2) Pancytopenia: Status: Acute (3) Sepsis: Status: Acute 76-year-old newly diagnosed female with small cell lung cancer. Underwent Port-A-Cath placement 05/05/2021. Approximately 2 weeks thereafter developed pain and redness over site along with fevers to 101. Presented to ER; initial white count 0.4; initial lactate done at 16:00 2.1 with subsequent lactate done 1 hour later 1.6. Blood cultures drawn. Will admit patient for IV antibiotics ID consult 1. Infected venous access port; initial white count 0.4 along with a lactated 2.1 that dropped to 1.6 after 1 hour suspicious for sepsis however upon review of blood pressure demonstrates normotensive readings save 1 erroneously reading of 80/40. Given presentation, 2 not believe this is a septic presentation as patient was never hypotensive Blood cultures drawn; started on IV vancomycin and Zosyn. ID consult placed Supplemental IV fluids; oxycodone for pain 2. Small cell carcinoma of the lung Will consult Oncology. Further plans as per their recommendations Quality Stroke Does the patient have a stroke diagnosis?: No VTE Prior VTE?: No VTE Risk Level:: Medical - moderate - high VTE Device Contraindication: Treatment Not Indicated VTE Drug Contraindication: N/A - Med Ordered
[2021-05-21] MEDS: hydroCHLOROthiazide 12.5 MG TABLET PO (12:46)
--- NOTE | 2021-05-21 12:55 | P.PNIM_ITS ---
Subjective Subjective Date of Service: 05/21/21 Review of Systems Complains of fever and chills Denies chest pain; chest wall pain over site No further nausea vomiting or diarrhea Physical Exam Vital Signs: Vital Signs: Last Vital Signs Temp 98.7 F 05/21/21 07:21 Pulse 100 05/21/21 11:05 Resp 18 05/21/21 07:21 BP 112/53 L 05/21/21 11:05 Pulse Ox 97 05/21/21 07:21 Body Mass Index 21.1 Const: Other: Awake alert oriented x3 no acute distress HENMT: Other: Oropharynx clear, membranes moist Chest: Other: Right superior chest erythematous from right lateral neck down to site of port. Area is warm to touch and extremely tender Resp: Other: Clear to auscultation bilaterally. No rales rhonchi or wheezes Cardio: Other: No S4; positive S1-S2; no S3 murmurs rubs gallops GI: Other: Soft nontender nondistended with normoactive bowel sounds. No appreciable hepatosplenomegaly Neuro: Other: Cranial nerves 2-12 grossly intact as tested motor is 5/5 all extremity sensation is intact. Gait not tested Extrem: Other: No edema bilaterally Objective Data Active Medications Acetaminophen (Acetaminophen 325 Mg Tablet) 650 mg PO Q8H PRN PRN Reason: Pain Albuterol Sulfate (Albuterol Sulfate 90 Mcg 8 Gm Inhaler) 2 puff INHALE Q4H PRN PRN Reason: Shortness Of Breath Last Admin: 05/20/21 21:44 Dose: 2 puff Documented by: MARK Albuterol/Ipratropium (Albuterol/Iprat 2.5/0.5mg 3 Ml Ampul.Neb) 3 ml INHALE RQ4H PRN PRN Reason: Shortness of Breath/Wheezing Last Admin: 05/21/21 06:49 Dose: 3 ml Documented by: ZO Enoxaparin Sodium (Enoxaparin Sodium 40 Mg/0.4 Ml Syringe) 40 mg SUBCUT Q24H [facility] Last Admin: 05/20/21 21:53 Dose: Not Given Documented by: MARK Non-Admin Reason: Patient Refused Fluticasone/Vilanterol (Fluticasone/Vilanterol 200/25 Blst.W.Dev) 1 puff INHALE DAILY [facility] Last Admin: 05/21/21 07:58 Dose: 1 puff Documented by: BLESSING Hydrochlorothiazide (Hydrochlorothiazide 12.5 Mg Tablet) 12.5 mg PO DAILY [facility] Last Admin: 05/21/21 12:46 Dose: 12.5 mg Documented by: ANAI Sodium Chloride (Ns) 1,000 mls @ 100 mls/hr IVCONT .Q10H [facility] Last Admin: 05/21/21 06:24 Dose: 100 mls/hr Documented by: MARK Piperacillin Sod/Tazobactam (Sod 3.375 gm/ Sodium Chloride) 50 mls @ 100 mls/hr IV Q6H [facility] Last Infusion: 05/21/21 12:51 Dose: 0 mls/hr Documented by: ANAI Vancomycin HCl 1,000 mg/ (Sodium Chloride) 270 mls @ 270 mls/hr IV Q24H [facility] Melatonin (Melatonin 3 Mg Tablet) 6 mg PO BEDTIME PRN PRN Reason: Insomnia Last Admin: 05/20/21 23:09 Dose: 6 mg Documented by: MARK Ondansetron HCl (Ondansetron Hcl 4 Mg/2 Ml Vial) 4 mg IVPUSH Q8H PRN PRN Reason: Nausea and Vomiting Oxycodone HCl (Oxycodone Hcl Immed Release 5 Mg Tablet) 5 mg PO Q6H PRN PRN Reason: Pain, Moderate (Pain Scale 4-6 Last Admin: 05/21/21 11:07 Dose: 5 mg Documented by: ANAI Pharmacy Consult (Consult Rx Perform Med Rec) 1 each MISCELLANE ONCE PRN PRN Reason: Consult order Pharmacy Consult (Consult Rx Vancomycin Dosing) 1 each MISCELLANE DAILY PRN PRN Reason: Consult order Sodium Chloride (0.9 % Sodium Chloride Flush 3 Ml Syringe) 3 ml IVFLUSH QSHIFT [facility] Last Admin: 05/21/21 11:07 Dose: Not Given Documented by: ANAI Non-Admin Reason: IV Running Tiotropium [place] (Tiotropium [place] 18 Mcg Cap.W.Dev) 1 puff INHALE RDAILY [facility] Last Admin: 05/21/21 07:58 Dose: 1 puff Documented by: BLESSING Tizanidine HCl (Tizanidine Hcl 4 Mg Tablet) 2 mg PO DAILY PRN PRN Reason: for muscle spasm Valsartan (Valsartan 160 Mg Tablet) 160 mg PO DAILY [facility] Last Admin: 05/21/21 11:05 Dose: 160 mg Documented by: ANAI Labs CBC & Chem 7: 05/21/21 06:24 05/21/21 06:24 Labs: Laboratory Results - last 24 hr 05/20/21 05/20/21 05/20/21 16:00 16:00 16:00 MCV 92.3 MCH 32.3 MCHC 35.0 RDW 12.4 Plt Count 42 L D MPV 10.3 Immature Gran % (Auto) 0.0 Neut % (Auto) 2.5 L Lymph % (Auto) 70.0 H [place] % (Auto) 27.5 H Eos % (Auto) 0.0 Baso % (Auto) 0.0 Lymph # (Auto) 0.3 L [place] # (Auto) 0.1 Eos # (Auto) 0.0 Baso # (Auto) 0.0 Abs Immat Gran (auto) 0.00 Absolute Neuts (auto) 0.0 L Absolute Nucleated RBC 0.000 Nucleated RBC % (auto) 0.0 Smear Tech's Comments VERIFIED Smear Path Review PT 12.5 INR 1.1 APTT 25.1 Anion Gap 15 Estim Creat Clear Calc 37.7 Estimated GFR 48 Random Glucose 129 H Lactic Acid Lactic Acid Fup @ 2Hr Calcium 9.0 Total Bilirubin 0.4 Urine Color Urine Appearance Urine pH Ur Specific [place] Urine Protein Urine Glucose (UA) Urine Ketones Urine Blood Urine Nitrite Ur Leukocyte Esterase Urine RBC Urine WBC Ur Squamous Epith Cells Amorphous Sediment Urine Bacteria COVID-19 (MICHAEL) COVID-19 Clin Com 05/20/21 05/20/21 05/20/21 16:00 17:33 17:39 MCV MCH MCHC RDW Plt Count MPV Immature Gran % (Auto) Neut % (Auto) Lymph % (Auto) [place] % (Auto) Eos % (Auto) Baso % (Auto) Lymph # (Auto) [place] # (Auto) Eos # (Auto) Baso # (Auto) Abs Immat Gran (auto) Absolute Neuts (auto) Absolute Nucleated RBC Nucleated RBC % (auto) Smear Tech's Comments Smear Path Review PT INR APTT Anion Gap Estim Creat Clear Calc Estimated GFR Random Glucose Lactic Acid 2.1 H* Lactic Acid Fup @ 2Hr Calcium Total Bilirubin Urine Color STRAW Urine Appearance HAZY Urine pH 5.5 Ur Specific [place] 1.010 Urine Protein TRACE Urine Glucose (UA) NEG Urine Ketones NEG Urine Blood TRACE Urine Nitrite NEG Ur Leukocyte Esterase NEG Urine RBC 0-2 Urine WBC 0-2 Ur Squamous Epith Cells 3+ Amorphous Sediment 1+ Urine Bacteria TRACE COVID-19 (MICHAEL) Negative COVID-19 Clin Com See Note 05/20/21 05/21/21 05/21/21 18:57 06:24 06:24 MCV 92.9 MCH 32.4 MCHC 34.9 RDW 12.4 Plt Count 39 L MPV 10.4 Immature Gran % (Auto) 2.2 H Neut % (Auto) 3.3 L Lymph % (Auto) 59.3 H [place] % (Auto) 34.1 H Eos % (Auto) 1.1 Baso % (Auto) 0.0 Lymph # (Auto) 0.5 L [place] # (Auto) 0.3 Eos # (Auto) 0.0 Baso # (Auto) 0.0 Abs Immat Gran (auto) 0.02 Absolute Neuts (auto) 0.0 L Absolute Nucleated RBC 0.000 Nucleated RBC % (auto) 0.0 Smear Tech's Comments VERIFIED Smear Path Review Cancelled PT INR APTT Anion Gap 14 Estim Creat Clear Calc 51.2 Estimated GFR > 60 Random Glucose 123 H Lactic Acid Lactic Acid Fup @ 2Hr 1.6 Calcium 7.8 L D Total Bilirubin Urine Color Urine Appearance Urine pH Ur Specific [place] Urine Protein Urine Glucose (UA) Urine Ketones Urine Blood Urine Nitrite Ur Leukocyte Esterase Urine RBC Urine WBC Ur Squamous Epith Cells Amorphous Sediment Urine Bacteria COVID-19 (MICHAEL) COVID-19 Clin Com Microbiology Microbiology Results: Microbiology 05/20/21 16:00 Blood Culture - Preliminary Blood - Venous Prelim: GNR Gram Stain only 05/20/21 16:00 Blood Culture - Preliminary Blood - Venous Prelim: GNR Gram Stain only Assessment and Plan (1) Bacteriuria: Status: Acute Assessment and Plan: 76-year-old newly diagnosed female with small cell lung cancer. Underwent Port-A-Cath placement 05/05/2021. Approximately 2 weeks thereafter developed pain and redness over site along with fevers to 101. Presented to ER; initial white count 0.4; initial lactate done at 16:00 2.1 with subsequent lactate done 1 hour later 1.6. Blood cultures drawn. Will admit patient for IV antibiotics ID consult 1. Infected venous access port; Blood cultures 2/2 GNR; Cont on IV vancomycin and Zosyn. Aw[place] ID consult Supplemental IV fluids; oxycodone for pain 2. Neutropenia Continue current coverage; precautions taken 3.Small cell carcinoma of the lung Will consult Oncology. Further plans as per their recommendations Quality Stroke Does the patient have a stroke diagnosis?: No VTE Prior VTE?: No VTE Risk Level:: Medical - moderate - high VTE Device Contraindication: Treatment Not Indicated VTE Drug Contraindication: N/A - Med Ordered
[2021-05-21] MEDS: 0.9 % Sodium Chloride Flush 3 ML SYRINGE IVFLUSH (15:59)
[2021-05-21] MEDS: vancomycin HCL 1,000 MG in 0.9 % Sodium Chloride 250 ML 270 MG IV (17:39)
[2021-05-21] MEDS: Enoxaparin Sodium 40 MG/0.4 ML SYRINGE SUBCUT (19:59)
--- NOTE | 2021-05-21 22:32 | P.CNID_ITS ---
History of Present Illness Data of Consult Service Date: 05/21/21 Requesting physician: Jairo Abarca Primary Care Provider: Unknown Physician HPI Reason for consult: pancytopenia,port infection She presents to hospital with fever to 101 as well as redness over chest wall area. She has pancytopenia as well She has no other complaints She has port placed chest wall on 05/05 for small cell lung cancer. Review of Systems Review of Systems: Yes all other systems are reviewed and are negative PMFSH Past Medical History Medical History Cervicalgia COPD, severe Hypertension, essential Nephropathy Family History Family History Father No problems noted. Mother No problems noted. Brother No problems noted. Brother No problems noted. Sister No problems noted. Daughter No problems noted. Daughter No problems noted. Son No problems noted. Son No problems noted. Son No problems noted. Son No problems noted. Son No problems noted. Surgical History Surgical History History of cervical discectomy History of surgery Social History Social History Household Members: Significant Other Housing: Apartment Housing Other:: duplex Do you presently have visiting nurse or other home services: No Alcohol intake: never Patient Tobacco Use Status: Former Tobacco user Quit Date: 2007 Tobacco use type: Cigarette Cigarette Packs Per Day: 2 Use of substances other than those prescribed or required for medical reasons: No Currently Displaying Signs/Symptoms of Drug Intoxication Withdrawal: No Any prior treatment program specific to substance use: No Have you been hit, kicked, punched, or otherwise hurt by someone within the past year? If so, by whom?: No Do you feel safe in your current relationship?: No Is there a partner from a previous relationship who is making you feel unsafe now?: No Are you made to feel afraid or neglected: Yes Advance Directives: No Advance Directives Information Provided: No Advance Directives Date on File: 04/13/21 Do you have thoughts of harming others: None Do you have a plan to hurt others: No Plan Recently lost weight without trying: Yes How much weight loss: Unsure Eating poorly because of decreased appetite: Yes Nutrition screen score: 5 Nutrition Risks: Poor intake 0-25% >4 days Patient : No : No Poor oral hygiene: No service: No Current occupational status: unemployed, retired and disabled Meds Allergies Allergy/AdvReac Type Severity Reaction Status Date / Time No Known Allergies Allergy Verified 05/05/21 09:29 Active Medications: Current Medications Acetaminophen (Acetaminophen 325 Mg Tablet) 650 mg PO Q8H PRN PRN Reason: Pain Albuterol Sulfate (Albuterol Sulfate 90 Mcg 8 Gm Inhaler) 2 puff INHALE Q4H PRN PRN Reason: Shortness Of Breath Last Admin: 05/20/21 21:44 Dose: 2 puff Documented by: Albuterol/Ipratropium (Albuterol/Iprat 2.5/0.5mg 3 Ml Ampul.Neb) 3 ml INHALE RQ4H PRN PRN Reason: Shortness of Breath/Wheezing Last Admin: 05/21/21 15:45 Dose: 3 ml Documented by: Enoxaparin Sodium (Enoxaparin Sodium 40 Mg/0.4 Ml Syringe) 40 mg SUBCUT Q24H [facility] Last Admin: 05/21/21 19:59 Dose: 40 mg Documented by: Fluticasone/Vilanterol (Fluticasone/Vilanterol 200/25 Blst.W.Dev) 1 puff INHALE DAILY [facility] Last Admin: 05/21/21 07:58 Dose: 1 puff Documented by: Hydrochlorothiazide (Hydrochlorothiazide 12.5 Mg Tablet) 12.5 mg PO DAILY [facility] Last Admin: 05/21/21 12:46 Dose: 12.5 mg Documented by: Sodium Chloride (Ns) 1,000 mls @ 100 mls/hr IVCONT .Q10H [facility] Last Admin: 05/21/21 15:43 Dose: 100 mls/hr Documented by: Piperacillin Sod/Tazobactam (Sod 3.375 gm/ Sodium Chloride) 50 mls @ 100 mls/hr IV Q6H [facility] Last Infusion: 05/21/21 22:17 Dose: Infused Documented by: Vancomycin HCl 1,000 mg/ (Sodium Chloride) 270 mls @ 270 mls/hr IV Q24H [facility] Last Infusion: 05/21/21 19:52 Dose: Infused Documented by: Melatonin (Melatonin 3 Mg Tablet) 6 mg PO BEDTIME PRN PRN Reason: Insomnia Last Admin: 05/20/21 23:09 Dose: 6 mg Documented by: Ondansetron HCl (Ondansetron Hcl 4 Mg/2 Ml Vial) 4 mg IVPUSH Q8H PRN PRN Reason: Nausea and Vomiting Oxycodone HCl (Oxycodone Hcl Immed Release 5 Mg Tablet) 5 mg PO Q6H PRN PRN Reason: Pain, Moderate (Pain Scale 4-6 Last Admin: 05/21/21 17:09 Dose: 5 mg Documented by: Pharmacy Consult (Consult Rx Perform Med Rec) 1 each MISCELLANE ONCE PRN PRN Reason: Consult order Pharmacy Consult (Consult Rx Vancomycin Dosing) 1 each MISCELLANE DAILY PRN PRN Reason: Consult order Sodium Chloride (0.9 % Sodium Chloride Flush 3 Ml Syringe) 3 ml IVFLUSH [facility] Last Admin: 05/21/21 15:59 Dose: 3 ml Documented by: Tiotropium [place] (Tiotropium [place] 18 Mcg Cap.W.Dev) 1 puff [facility]ALE [facility] Last Admin: 05/21/21 07:58 Dose: 1 puff Documented by: Tizanidine HCl (Tizanidine Hcl 4 Mg Tablet) 2 mg PO DAILY PRN PRN Reason: for muscle spasm Valsartan (Valsartan 160 Mg Tablet) 160 mg PO DAILY [facility] Last Admin: 05/21/21 11:05 Dose: 160 mg Documented by: Home Medications Medication Instructions Recorded Confirmed Last Taken Type albuterol sulfate 90 mcg/actuation 2 puff INHALATION Q4H PRN 04/13/21 05/20/21 Unknown History aerosol inhaler (ProAir HFA) acetaminophen 650 mg 650 mg PO Q8H PRN 05/20/21 05/20/21 05/20/21 History tablet,extended release (Tylenol 8 Hour) irbesartan 300 1 tab PO DAILY 05/20/21 05/20/21 05/20/21 History mg-hydrochlorothiazide 12.5 mg tablet tiotropium bromide 18 mcg capsule 1 cap INHALATION BEDTIME 05/20/21 05/20/21 05/19/21 History with inhalation device (Spiriva with HandiHaler) Physical Exam Vital Signs: Vital Signs: Last Vital Signs Temp 99.7 F 05/21/21 21:45 Pulse 111 H 05/21/21 21:45 Resp 20 05/21/21 15:33 BP 135/58 L 05/21/21 15:33 Pulse Ox 96 05/21/21 15:33 Body Mass Index 21.1 Const: General: cooperative HENMT: Head: Yes normal to inspection Mouth: Normal oral and palatal mucosa present Resp: Effort & Inspection: normal respiratory effort Cardio: Rate: regular rate Rhythm: regular rhythm GI: Palpation (GI): Soft to palpation and nontender Abdomen image: 1. reddened port area,?deeper involvement Results Labs CBC & Chem 7: 05/21/21 06:24 05/21/21 06:24 Labs: Short CBC 05/21/21 Range/Units 06:24 WBC 0.9 L* (4.8-10.8) X10*3/uL Hgb 8.2 L (12.0-16.0) g/dl Hct 23.5 L (37-47) % Plt Count 39 L (160-400) X10*3/uL BMP 05/21/21 06:24 Sodium 138 Potassium 3.4 Chloride 108 Carbon Dioxide 19 L BUN 13 Creatinine 0.82 Calcium 7.8 L D Microbiology Microbiology Results: Microbiology 05/20/21 16:00 Blood - Venous Blood Culture - Preliminary Prelim: GNR Gram Stain only 05/20/21 16:00 Blood - Venous Blood Culture - Preliminary Prelim: GNR Gram Stain only Assessment and Plan (1) Cellulitis of chest wall: Status: Acute There could be concern over deeper infection through epidermis. Pancytopenia is concerning Gram negative bacteremia (2) Infected venous access port: Status: Acute (3) Sepsis: Status: Acute Would continue Vancomycin and Zosyn for now Would remove port as pancytopenia as well as possible deeper skin involvement into bone concerning as a possibility and patient is septic
[2021-05-21] MEDS: Melatonin 3 MG TABLET 6 MG PO (23:05)
[2021-05-22] VITALS (7 sets, daily range): BP systolic 131–135; BP diastolic 51–71; PULSE 88–118; RESP 18–24; TEMP 37.1–37.3; O2SAT 95–98
[2021-05-22] MEDS: 0.9 % Sodium Chloride 1,000 ML 100 ML IVCONT ×2 (03:51→15:43)
[2021-05-22] MEDS: Albuterol/Iprat 2.5/0.5MG 3 ML AMPUL.NEB INHALE ×5 (04:17→23:46)
[2021-05-22] MEDS: Piperacillin Sodium/Tazobactam 3.375 GM in 0.9 % Sodium Chloride 50 ML IV ×4 (04:53→20:43)
[2021-05-22] MEDS: oxyCODONE HCl Immed Release 5 MG TABLET PO ×3 (04:54→17:34)
--- NOTE | 2021-05-22 06:18 | PM.EVENT ---
Event Note Date of Service: 05/22/21 Event Note: psych consult placed for suicidal ideation
[2021-05-22 06:53] LABS: Hematocrit 25.8 % (37-47); Hemoglobin 8.9 g/dl (12.0-16.0); Mean Corpuscular HGB Conc 34.5 g/dl (31.0-35.0); Mean Corpuscular Hemoglobin 32.1 pg (27.0-33.0); Mean Corpuscular Volume 93.1 fL (80-98); Mean Platelet Volume 10.6 fL (9.4-12.3); Red Blood Count 2.77 X10*6/uL (4.20-5.50); Red Cell Distribution Width 12.7 % (11.0-16.0)
[2021-05-22 06:56] LABS: Platelet Count 70 X10*3/uL (160-400); White Blood Count 1.9 X10*3/uL (4.8-10.8)
[2021-05-22] MEDS: Fluticasone/Vilanterol 200/25 BLST.W.DEV 1 PUFF INHALE (07:15)
[2021-05-22 07:21] LABS: Alanine Aminotransferase 12 U/L (0-31); Albumin Level 3.5 g/dL (3.5-5.0); Alkaline Phosphatase 80 U/L (39-117); Anion Gap 18 (12-20); Aspartate Amino Transferase 14 U/L (5-31); Bilirubin Total 0.3 mg/dL (0.0-1.0); Blood Urea Nitrogen 9 mg/dL (9-16); Carbon Dioxide 16 mmol/L (22-29); Chloride 108 mmol/L (96-108); Creatinine Clr Calc Pharmacy 51.8; Estimated Glomerular Filt Rate > 60; Glucose Fasting 98 mg/dL (60-99); Potassium 3.7 mmol/L (3.3-5.1); Sodium 138 mmol/L (135-145); Total Protein 6.5 g/dL (6.5-8.0)
[2021-05-22] MEDS: 0.9 % Sodium Chloride Flush 3 ML SYRINGE IVFLUSH ×2 (09:52→17:33)
[2021-05-22] MEDS: Valsartan 160 MG TABLET PO (09:53)
[2021-05-22] MEDS: hydroCHLOROthiazide 12.5 MG TABLET PO (09:53)
--- NOTE | 2021-05-22 11:29 | P.PNIM_ITS ---
Subjective Subjective Date of Service: 05/22/21 Interval History: No acute events overnight. Wound site slightly improved; pain control with oxycodone Review of Systems Complains of fever and chills Denies chest pain; chest wall pain over site No further nausea vomiting or diarrhea Physical Exam Vital Signs: Vital Signs: Last Vital Signs Temp 99.2 F 05/22/21 11:07 Pulse 100 05/22/21 11:07 Resp 18 05/22/21 11:07 BP 134/71 05/22/21 11:07 Pulse Ox 97 05/22/21 11:07 Body Mass Index 21.1 Const: Other: Awake alert oriented x3 no acute distress HENMT: Other: Oropharynx clear, membranes moist Chest: Other: Right superior chest erythematous from right lateral neck down to site of port. Area is warm to touch and extremely tender; somewhat improved this a.m. Resp: Other: Clear to auscultation bilaterally. No rales rhonchi or wheezes Cardio: Other: No S4; positive S1-S2; no S3 murmurs rubs gallops GI: Other: Soft nontender nondistended with normoactive bowel sounds. No appreciable hepatosplenomegaly Neuro: Other: Cranial nerves 2-12 grossly intact as tested motor is 5/5 all extremity sensation is intact. Gait not tested Extrem: Other: No edema bilaterally Objective Data Active Medications Acetaminophen (Acetaminophen 325 Mg Tablet) 650 mg PO Q8H PRN PRN Reason: Pain Albuterol Sulfate (Albuterol Sulfate 90 Mcg 8 Gm Inhaler) 2 puff INHALE Q4H PRN PRN Reason: Shortness Of Breath Last Admin: 05/20/21 21:44 Dose: 2 puff Documented by: MARK Albuterol/Ipratropium (Albuterol/Iprat 2.5/0.5mg 3 Ml Ampul.Neb) 3 ml INHALE RQ4H PRN PRN Reason: Shortness of Breath/Wheezing Last Admin: 05/22/21 07:14 Dose: 3 ml Documented by: BLESSING Enoxaparin Sodium (Enoxaparin Sodium 40 Mg/0.4 Ml Syringe) 40 mg SUBCUT Q24H [facility] Last Admin: 05/21/21 19:59 Dose: 40 mg Documented by: MARK Fluticasone/Vilanterol (Fluticasone/Vilanterol 200/25 Blst.W.Dev) 1 puff INHALE DAILY [facility] Last Admin: 05/22/21 07:15 Dose: 1 puff Documented by: BLESSING Hydrochlorothiazide (Hydrochlorothiazide 12.5 Mg Tablet) 12.5 mg PO DAILY [facility] Last Admin: 05/22/21 09:53 Dose: 12.5 mg Documented by: ANAI Sodium Chloride (Ns) 1,000 mls @ 100 mls/hr IVCONT .Q10H [facility] Last Admin: 05/22/21 03:51 Dose: 100 mls/hr Documented by: MARK Piperacillin Sod/Tazobactam (Sod 3.375 gm/ Sodium Chloride) 50 mls @ 100 mls/hr IV Q6H [facility] Last Admin: 05/22/21 09:52 Dose: 100 mls/hr Documented by: ANAI Vancomycin HCl 1,000 mg/ (Sodium Chloride) 270 mls @ 270 mls/hr IV Q24H [facility] Last Infusion: 05/21/21 19:52 Dose: 0 mls/hr Documented by: ANAI Melatonin (Melatonin 3 Mg Tablet) 6 mg PO BEDTIME PRN PRN Reason: Insomnia Last Admin: 05/21/21 23:05 Dose: 6 mg Documented by: MARK Ondansetron HCl (Ondansetron Hcl 4 Mg/2 Ml Vial) 4 mg IVPUSH Q8H PRN PRN Reason: Nausea and Vomiting Oxycodone HCl (Oxycodone Hcl Immed Release 5 Mg Tablet) 5 mg PO Q6H PRN PRN Reason: Pain, Moderate (Pain Scale 4-6 Last Admin: 05/22/21 04:54 Dose: 5 mg Documented by: MARK Pharmacy Consult (Consult Rx Perform Med Rec) 1 each MISCELLANE ONCE PRN PRN Reason: Consult order Pharmacy Consult (Consult Rx Vancomycin Dosing) 1 each MISCELLANE DAILY PRN PRN Reason: Consult order Sodium Chloride (0.9 % Sodium Chloride Flush 3 Ml Syringe) 3 ml IVFLUSH QSHIFT [facility] Last Admin: 05/22/21 09:52 Dose: 3 ml Documented by: ANAI Tiotropium [place] (Tiotropium [place] 18 Mcg Cap.W.Dev) 1 puff INHALE RDAILY [facility] Last Admin: 05/22/21 07:15 Dose: 1 puff Documented by: BLESSING Tizanidine HCl (Tizanidine Hcl 4 Mg Tablet) 2 mg PO DAILY PRN PRN Reason: for muscle spasm Valsartan (Valsartan 160 Mg Tablet) 160 mg PO DAILY [facility] Last Admin: 05/22/21 09:53 Dose: 160 mg Documented by: ANAI Labs CBC & Chem 7: 05/22/21 05:56 05/22/21 05:56 Labs: Laboratory Results - last 24 hr 05/22/21 05/22/21 05:56 05:56 MCV 93.1 MCH 32.1 MCHC 34.5 RDW 12.7 Plt Count 70 L D MPV 10.6 Absolute Nucleated RBC 0.000 Nucleated RBC % (auto) 0.0 Anion Gap 18 Estim Creat Clear Calc 51.8 Estimated GFR > 60 Fasting Glucose 98 Calcium 8.0 L Total Bilirubin 0.3 AST 14 ALT 12 Alkaline Phosphatase 80 Total Protein 6.5 Albumin 3.5 D Microbiology Microbiology Results: Microbiology 05/20/21 16:00 Blood Culture - Preliminary Blood - Venous Gram negative amber 05/20/21 16:00 Blood Culture - Preliminary Blood - Venous Gram negative amber Assessment and Plan (1) Infected venous access port: Status: Acute Assessment and Plan: 76-year-old newly diagnosed female with small cell lung cancer. Underwent Port-A-Cath placement 05/05/2021. Approximately 2 weeks thereafter developed pain and redness over site along with fevers to 101. Presented to ER; initial white count 0.4; initial lactate done at 16:00 2.1 with subsequent lactate done 1 hour later 1.6. Blood cultures drawn. Will admit patient for IV antibiotics ID consult 1. Infected venous access port; Blood cultures 2/2 GNR; Cont on IV vancomycin and Zosyn. Awiat ID consult Supplemental IV fluids; oxycodone for pain 2. Neutropenia Continue current coverage; precautions taken Slowly improving 3.Small cell carcinoma of the lung Will consult Oncology. Further plans as per their recommendations 4. Disposition Wishes SNF placement; have PT evaluate Quality Stroke Does the patient have a stroke diagnosis?: No VTE Prior VTE?: No VTE Risk Level:: Medical - moderate - high VTE Device Contraindication: Treatment Not Indicated VTE Drug Contraindication: N/A - Med Ordered
--- NOTE | 2021-05-22 14:58 | MHC.CARE ---
CARE Team met with Pt who reported I don't want to live like this anymore to nursing staff . Pt presented as calm, cooperative and tearful. Pt denies suicidal ideation plan, intent or means. Pt reports frustration with medical diagnosis. Pt denies history of suicide attempts, gestures or IPLOC admissions.Pt verbalizes safety and does not want to harm herself. CARE Team communicated this information to Dr. Abarca.
--- NOTE | 2021-05-22 15:21 | PC.NURSE ---
PT cleared by CARE team of 1:1 sitter. Brought telesitter into room for extra safety precautions and staff explained use of the telesitter. Pt refused at this time.
[2021-05-22 16:46] LABS: Vancomycin Trough 8.7 mcg/mL (10.0-20.0)
[2021-05-22] MEDS: vancomycin HCL 1,000 MG in 0.9 % Sodium Chloride 250 ML 270 MG IV (17:33)
[2021-05-22] MEDS: Melatonin 3 MG TABLET 6 MG PO (20:42)
[2021-05-23] VITALS (11 sets, daily range): BP systolic 119–187; BP diastolic 48–86; PULSE 94–112; RESP 16–22; TEMP 36.9–37.2; O2SAT 90–97; BMI 21.1
[2021-05-23] MEDS: hydrOXYzine HCL 25 MG TABLET PO ×3 (00:51→16:29)
[2021-05-23] MEDS: oxyCODONE HCl Immed Release 5 MG TABLET PO ×4 (00:54→19:57)
[2021-05-23] MEDS: 0.9 % Sodium Chloride 1,000 ML 100 ML IVCONT ×2 (03:50→18:21)
[2021-05-23] MEDS: Piperacillin Sodium/Tazobactam 3.375 GM in 0.9 % Sodium Chloride 50 ML IV ×4 (03:50→23:40)
[2021-05-23] MEDS: Albuterol/Iprat 2.5/0.5MG 3 ML AMPUL.NEB INHALE ×3 (07:37→19:53)
[2021-05-23] MEDS: Fluticasone/Vilanterol 200/25 BLST.W.DEV 1 PUFF INHALE (07:38)
[2021-05-23] MEDS: Valsartan 160 MG TABLET PO (07:42)
[2021-05-23] MEDS: 0.9 % Sodium Chloride Flush 3 ML SYRINGE IVFLUSH (07:42)
[2021-05-23] MEDS: hydroCHLOROthiazide 12.5 MG TABLET PO (07:42)
[2021-05-23 10:06] LABS: Creatinine Clr Calc Pharmacy 58.2; Estimated Glomerular Filt Rate > 60; Magnesium 1.1 mg/dL (1.6-2.6)
[2021-05-23 11:50] LABS: Hematocrit 23.8 % (37-47); Hemoglobin 8.3 g/dl (12.0-16.0); Mean Corpuscular HGB Conc 34.9 g/dl (31.0-35.0); Mean Corpuscular Hemoglobin 31.9 pg (27.0-33.0); Mean Corpuscular Volume 91.5 fL (80-98); Mean Platelet Volume 10.5 fL (9.4-12.3); NRBC Pct Auto 0.4 /100WBC (0.0-0.2); PLT CLUMP 1; Red Cell Distribution Width 12.7 % (11.0-16.0)
--- NOTE | 2021-05-23 11:51 | HO.PM.IMPN ---
Subjective Subjective Date of Service: 05/23/21 Interval History: Uncomfortable this am; complains of right arm pain/swelling. BC consistant with 2/2 Pseudomonas ss Zosyn. No fever chills overnight. Review of Systems Complains of fever and chills Denies chest pain; chest wall pain over site No further nausea vomiting or diarrhea Physical Exam Vital Signs: Vital Signs: Last Vital Signs Temp 98.7 F 05/23/21 07:26 Pulse 106 H 05/23/21 09:21 Resp 18 05/23/21 07:26 BP 183/86 H 05/23/21 09:21 Pulse Ox 93 05/23/21 09:21 Body Mass Index 21.1 Const: Other: Awake alert oriented x3 no acute distress HENMT: Other: Oropharynx clear, membranes moist Chest: Other: Right superior chest erythematous from right lateral neck down to site of port. Area is warm to touch and extremely tender; somewhat improved this a.m. Resp: Other: Clear to auscultation bilaterally. No rales rhonchi or wheezes Cardio: Other: No S4; positive S1-S2; no S3 murmurs rubs gallops GI: Other: Soft nontender nondistended with normoactive bowel sounds. No appreciable hepatosplenomegaly Neuro: Other: Cranial nerves 2-12 grossly intact as tested motor is 5/5 all extremity sensation is intact. Gait not tested Extrem: Other: 2+ edema right upper extremity. Radial and ulnar pulses palpated Objective Data Active Medications Acetaminophen (Acetaminophen 325 Mg Tablet) 650 mg PO Q8H PRN PRN Reason: Pain Albuterol Sulfate (Albuterol Sulfate 90 Mcg 8 Gm Inhaler) 2 puff INHALE Q4H PRN PRN Reason: Shortness Of Breath Last Admin: 05/20/21 21:44 Dose: 2 puff Documented by: MARK Albuterol/Ipratropium (Albuterol/Iprat 2.5/0.5mg 3 Ml Ampul.Neb) 3 ml INHALE RQ4H PRN PRN Reason: Shortness of Breath/Wheezing Last Admin: 05/23/21 07:37 Dose: 3 ml Documented by: BLESSING Enoxaparin Sodium (Enoxaparin Sodium 40 Mg/0.4 Ml Syringe) 40 mg SUBCUT Q24H [facility] Last Admin: 05/22/21 20:43 Dose: Not Given Documented by: EDEN Non-Admin Reason: Patient Refused Fluticasone/Vilanterol (Fluticasone/Vilanterol 200/25 Blst.W.Dev) 1 puff INHALE DAILY [facility] Last Admin: 05/23/21 07:38 Dose: 1 puff Documented by: BLASCJhonathan Hydrochlorothiazide (Hydrochlorothiazide 12.5 Mg Tablet) 12.5 mg PO DAILY [facility] Last Admin: 05/23/21 07:42 Dose: 12.5 mg Documented by: JERARDO Hydroxyzine HCl (Hydroxyzine Hcl 25 Mg Tablet) 25 mg PO Q8H PRN PRN Reason: anxiety/restlessness Last Admin: 05/23/21 10:35 Dose: 25 mg Documented by: JERARDO Sodium Chloride (Ns) 1,000 mls @ 100 mls/hr IVCONT .Q10H [facility] Last Admin: 05/23/21 03:50 Dose: 100 mls/hr Documented by: EDEN Piperacillin Sod/Tazobactam (Sod 3.375 gm/ Sodium Chloride) 50 mls @ 100 mls/hr IV Q6H [facility] Last Infusion: 05/23/21 11:44 Dose: 0 mls/hr Documented by: JERARDO Magnesium Sulfate (Magnesium Sulfate/H2o) 2 gm in 50 mls @ 25 mls/hr IV ONCE ONE Stop: 05/23/21 12:17 Lidocaine (Lidocaine 4 % Patch Adh..Patch) 1 patch TRANSDERMA DAILY [facility]; Protocol Melatonin (Melatonin 3 Mg Tablet) 6 mg PO BEDTIME PRN PRN Reason: Insomnia Last Admin: 05/22/21 20:42 Dose: 6 mg Documented by: EDEN Ondansetron HCl (Ondansetron Hcl 4 Mg/2 Ml Vial) 4 mg IVPUSH Q8H PRN PRN Reason: Nausea and Vomiting Oxycodone HCl (Oxycodone Hcl Immed Release 5 Mg Tablet) 5 mg PO Q6H PRN PRN Reason: Pain, Moderate (Pain Scale 4-6 Last Admin: 05/23/21 07:41 Dose: 5 mg Documented by: JERARDO Pharmacy Consult (Consult Rx Perform Med Rec) 1 each MISCELLANE ONCE PRN PRN Reason: Consult order Pharmacy Consult (Consult Rx Vancomycin Dosing) 1 each MISCELLANE DAILY PRN PRN Reason: Consult order Sodium Chloride (0.9 % Sodium Chloride Flush 3 Ml Syringe) 3 ml IVFLUSH QSHIFT [facility] Last Admin: 05/23/21 07:42 Dose: 3 ml Documented by: JERARDO Tiotropium [place] (Tiotropium [place] 18 Mcg Cap.W.Dev) 1 puff INHALE RDAILY [facility] Last Admin: 05/23/21 07:44 Dose: Not Given Documented by: BLESSING Non-Admin Reason: Patient Refused Tizanidine HCl (Tizanidine Hcl 4 Mg Tablet) 2 mg PO DAILY PRN PRN Reason: for muscle spasm Valsartan (Valsartan 160 Mg Tablet) 160 mg PO DAILY [facility] Last Admin: 05/23/21 07:42 Dose: 160 mg Documented by: JERARDO Labs CBC & Chem 7: 05/22/21 05:56 05/23/21 08:44 Labs: Laboratory Results - last 24 hr 05/22/21 05/23/21 05/23/21 16:02 08:44 08:44 Estim Creat Clear Calc 58.2 Estimated GFR > 60 Magnesium Cancelled 1.1 L* Vancomycin Trough 8.7 L Microbiology Microbiology Results: Microbiology 05/20/21 16:00 Blood Culture - Final Blood - Venous Pseudomonas aeruginosa 05/20/21 16:00 Blood Culture - Final Blood - Venous Pseudomonas aeruginosa Assessment and Plan (1) Bacteriuria: Status: Acute Assessment and Plan: 76-year-old newly diagnosed female with small cell lung cancer. Underwent Port-A-Cath placement 05/05/2021. Approximately 2 weeks thereafter developed pain and redness over site along with fevers to 101. Presented to ER; initial white count 0.4; initial lactate done at 16:00 2.1 with subsequent lactate done 1 hour later 1.6. 1. Infected venous access port; Blood cultures 2/2 Pseudomonas sensitive to Zosyn. Order placed at Interventional Radiology to have port removed this a.m. Supplemental IV fluids; oxycodone for pain 2. Right upper extremity edema High suspicion for venous thrombus given recent instrumentation. Right upper extremity duplex ordered ... Anticoagulated as indicated 3. Neutropenia Continue current coverage; precautions taken Slowly improving 4.Small cell carcinoma of the lung Will consult Oncology. Further plans as per their recommendations 5. Disposition Wishes SNF placement; have PT evaluate Quality Stroke Does the patient have a stroke diagnosis?: No VTE Prior VTE?: No VTE Risk Level:: Medical - moderate - high VTE Device Contraindication: Treatment Not Indicated VTE Drug Contraindication: N/A - Med Ordered
[2021-05-23 12:11] LABS: Band Neutrophils Percent 14 % (3-5); Lymphocytes Percent Manual 18 % (20-40); Metamyelocytes Percent 1 %; Monocytes Percent Manual 23 % (2-11); Myelocytes Percent 2 %; Neutrophils Percent Manual 41 % (45-73); Promyelocytes Percent 1 %
[2021-05-23 12:12] LABS: Microcytosis 1+ (5-14) /OIF; RBC Morphology NOTED
[2021-05-23 12:14] LABS: Platelet Estimate DECREASED (NORMAL); Platelet Morphology Comment NOTE
[2021-05-23 12:16] LABS: Lymphocytes Absolute Manual 0.9 X10*3/uL (0.6-4.8); Metamyelocytes Absolute 0.1 X10*3/uL; Monocytes Absolute Manual 1.2 X10*3/uL (0.0-1.2); Myelocytes Absolute 0.1 X10*/uL; Neutrophils Absolute Manual 2.8 X10*3/uL (2.2-7.9); Platelet Count 107 X10*3/uL (160-400); Promyelocytes Absolute 0.1 X10*3/uL; White Blood Count 5.1 X10*3/uL (4.8-10.8)
[2021-05-23] MEDS: Lidocaine 4 % Patch ADH..PATCH 1 PATCH TRANSDERMA (12:46)
[2021-05-23] MEDS: Magnesium Sulfate/H2O 2 GM/50 ML PIGGYBACK IV (12:47)
--- NOTE | 2021-05-23 14:07 | MHC.CLN ---
RE: CONSULT PT IS MODERATELY MALNOURISHED PT WITH MILDLY DEPLETED SUBCUTANEOUS FAT, 9% WT LOSS X 5 MONTHS WITH CHRONIC POOR PO INTAKE X 4 WEEKS. DIET RX: NEUTROPENIC -APPROPRIATE PT REFUSES TO DRINK ENSURE SUPPLEMENTS PT OFFERED ALTERNATIVE SUPPLEMENTS TO INCREASE KCALS BUT PT REFUSED ALL SUPPLEMENTS OFFERED PT REPORTS LIKING SOFT FOOD AND LIQUIDS PT WITH INCREASED NUTRITION RISK R/T PRESSURE INJURIES WITH STAGE 2 L BUTT MONITOR PO INTAKE CLOSELY SEE ALSO CLINICAL NUTRITION ASSESSMENT
[2021-05-23] MEDS: TiZANidine HCL 4 MG TABLET 2 MG PO (15:30)
--- NOTE | 2021-05-23 17:30 | HO.RADPN ---
RADIOLOGY Narrative Narrative: Right chest port removed. Wound left to heal by secondary intention and packed with 1/4 inch iodoform guaze. Cathetr tip sent for culture.
[2021-05-23] MEDS: Lidocaine HCl 1 % MPF 5 ML VIAL 10 ML SUBCUT (18:03)
--- NOTE | 2021-05-23 19:34 | PM.EVENT ---
Event Note Date of Service: 05/23/21 Event Note: DVT: Duplex showed Positive for deep venous thrombosis right subclavian vein and right internal jugular vein. s/w Lovenox at therapeutic dose.
[2021-05-23] MEDS: Enoxaparin Sodium 60 MG/0.6 ML SYRINGE 55 MG SUBCUT (19:56)
[2021-05-23] MEDS: Melatonin 3 MG TABLET 6 MG PO (19:57)
[2021-05-24] VITALS (13 sets, daily range): BP systolic 98–158; BP diastolic 52–73; PULSE 82–100; RESP 15–18; TEMP 36.2–37.3; O2SAT 92–98
[2021-05-24] MEDS: Albuterol/Iprat 2.5/0.5MG 3 ML AMPUL.NEB INHALE ×3 (03:43→18:24)
[2021-05-24] MEDS: Piperacillin Sodium/Tazobactam 3.375 GM in 0.9 % Sodium Chloride 50 ML IV ×4 (04:39→21:02)
[2021-05-24] MEDS: oxyCODONE HCl Immed Release 5 MG TABLET PO ×3 (04:40→17:04)
[2021-05-24] MEDS: Dextrose 5 % and 0.45 % NaCl 1,000 ML 80 ML IVCONT (05:33)
[2021-05-24] MEDS: hydrOXYzine HCL 25 MG TABLET PO ×2 (05:39→17:04)
[2021-05-24 07:03] LABS: Hematocrit 22.9 % (37-47); Hemoglobin 7.9 g/dl (12.0-16.0); Mean Corpuscular HGB Conc 34.5 g/dl (31.0-35.0); Mean Corpuscular Hemoglobin 31.9 pg (27.0-33.0); Mean Corpuscular Volume 92.3 fL (80-98); Mean Platelet Volume 10.2 fL (9.4-12.3); Platelet Count 129 X10*3/uL (160-400); Red Blood Count 2.48 X10*6/uL (4.20-5.50); Red Cell Distribution Width 12.9 % (11.0-16.0); White Blood Count 5.8 X10*3/uL (4.8-10.8)
[2021-05-24 07:18] LABS: Alanine Aminotransferase 11 U/L (0-31); Albumin Level 3.1 g/dL (3.5-5.0); Alkaline Phosphatase 80 U/L (39-117); Anion Gap 17 (12-20); Aspartate Amino Transferase 14 U/L (5-31); Bilirubin Total 0.4 mg/dL (0.0-1.0); Blood Urea Nitrogen 4 mg/dL (9-16); Calcium 7.8 mg/dL (8.4-10.2); Carbon Dioxide 18 mmol/L (22-29); Chloride 106 mmol/L (96-108); Creatinine Clr Calc Pharmacy 59.1; Estimated Glomerular Filt Rate > 60; Glucose Fasting 102 mg/dL (60-99); Potassium 3.5 mmol/L (3.3-5.1); Sodium 137 mmol/L (135-145); Total Protein 5.5 g/dL (6.5-8.0)
[2021-05-24 07:46] LABS: Band Neutrophils Percent 11 % (3-5); Lymphocytes Percent Manual 18 % (20-40); Metamyelocytes Absolute 0.1 X10*3/uL; Metamyelocytes Percent 1 %; Monocytes Percent Manual 17 % (2-11); Myelocytes Absolute 0.1 X10*/uL; Myelocytes Percent 1 %; Neutrophils Absolute Manual 3.7 X10*3/uL (2.2-7.9); Neutrophils Percent Manual 52 % (45-73)
[2021-05-24 07:52] LABS: Microcytosis 1+ (5-14) /OIF; Platelet Estimate DECREASED (NORMAL); Platelet Morphology Comment NORMAL; RBC Morphology NOTED; Toxic Granulation PRESENT
[2021-05-24] MEDS: Fluticasone/Vilanterol 200/25 BLST.W.DEV 1 PUFF INHALE (08:02)
[2021-05-24] MEDS: TiZANidine HCL 4 MG TABLET 2 MG PO (09:06)
[2021-05-24] MEDS: hydroCHLOROthiazide 12.5 MG TABLET PO (09:08)
[2021-05-24] MEDS: Valsartan 160 MG TABLET PO (09:08)
[2021-05-24] MEDS: Enoxaparin Sodium 60 MG/0.6 ML SYRINGE 55 MG SUBCUT ×2 (09:08→19:55)
--- NOTE | 2021-05-24 13:09 | P.PNIM_ITS ---
Subjective Subjective Date of Service: 05/24/21 Interval History: Port removed yesterday by IR; doing much better today. States less pain in chest; problem is right arm; New diagnosis right subclavian/IJ clot. Review of Systems Complains of fever and chills Denies chest pain; chest wall pain over site No further nausea vomiting or diarrhea Physical Exam Vital Signs: Vital Signs: Last Vital Signs Temp 99.2 F 05/24/21 11:51 Pulse 87 05/24/21 11:51 Resp 18 05/24/21 11:51 BP 113/52 L 05/24/21 11:51 Pulse Ox 94 05/24/21 11:51 Body Mass Index 21.1 Const: Other: Awake alert oriented x3 no acute distress HENMT: Other: Oropharynx clear, membranes moist Chest: Other: Right superior chest erythematous from right lateral neck down to site of port site... Improve since removal.Improved this a.m. Resp: Other: Clear to auscultation bilaterally. No rales rhonchi or wheezes Cardio: Other: No S4; positive S1-S2; no S3 murmurs rubs gallops GI: Other: Soft nontender nondistended with normoactive bowel sounds. No appreciable hepatosplenomegaly Neuro: Other: Cranial nerves 2-12 grossly intact as tested motor is 5/5 all extremity sensation is intact. Gait not tested Extrem: Other: 2+ edema right upper extremity. Radial and ulnar pulses palpated Objective Data Active Medications Acetaminophen (Acetaminophen 325 Mg Tablet) 650 mg PO Q8H PRN PRN Reason: Pain Acetaminophen (Acetaminophen 325 Mg Tablet) 650 mg PO Q6H PRN PRN Reason: Pain, Mild (Pain Scale 1-3) Albuterol Sulfate (Albuterol Sulfate 90 Mcg 8 Gm Inhaler) 2 puff INHALE Q4H PRN PRN Reason: Shortness Of Breath Last Admin: 05/20/21 21:44 Dose: 2 puff Documented by: MARK Albuterol/Ipratropium (Albuterol/Iprat 2.5/0.5mg 3 Ml Ampul.Neb) 3 ml INHALE RQ4H PRN PRN Reason: Shortness of Breath/Wheezing Last Admin: 05/24/21 11:43 Dose: 3 ml Documented by: ALDA Enoxaparin Sodium (Enoxaparin Sodium 60 Mg/0.6 Ml Syringe) 55 mg SUBCUT Q12H [facility] Last Admin: 05/24/21 09:08 Dose: 55 mg Documented by: JERARDO Fluticasone/Vilanterol (Fluticasone/Vilanterol 200/25 Blst.W.Dev) 1 puff INHALE DAILY [facility] Last Admin: 05/24/21 08:02 Dose: 1 puff Documented by: ULRICAlly Hydrochlorothiazide (Hydrochlorothiazide 12.5 Mg Tablet) 12.5 mg PO DAILY [facility] Last Admin: 05/24/21 09:08 Dose: 12.5 mg Documented by: JERARDO Hydroxyzine HCl (Hydroxyzine Hcl 25 Mg Tablet) 25 mg PO Q8H PRN PRN Reason: anxiety/restlessness Last Admin: 05/24/21 05:39 Dose: 25 mg Documented by: EDEN Piperacillin Sod/Tazobactam (Sod 3.375 gm/ Sodium Chloride) 50 mls @ 100 mls/hr IV Q6H [facility] Last Infusion: 05/24/21 09:38 Dose: 0 mls/hr Documented by: JERARDO Dextrose/Sodium Chloride (D51/2ns) 1,000 mls @ 80 mls/hr IVCONT .[id number] [facility] Last Admin: 05/24/21 05:33 Dose: 80 mls/hr Documented by: EDEN Lidocaine (Lidocaine 4 % Patch Adh..Patch) 1 patch TRANSDERMA DAILY [facility]; Protocol Last Admin: 05/24/21 09:04 Dose: Not Given Documented by: JERARDO Non-Admin Reason: Patient Refused Melatonin (Melatonin 3 Mg Tablet) 6 mg PO BEDTIME PRN PRN Reason: Insomnia Last Admin: 05/23/21 19:57 Dose: 6 mg Documented by: EDEN Morphine Sulfate (Morphine Sulfate 2 Mg/Ml Cartridge) 2 mg IVPUSH Q3H PRN; Protocol PRN Reason: Pain, Moderate (Pain Scale 4-6 Ondansetron HCl (Ondansetron Hcl 4 Mg/2 Ml Vial) 4 mg IVPUSH Q8H PRN PRN Reason: Nausea and Vomiting Oxycodone HCl (Oxycodone Hcl Immed Release 5 Mg Tablet) 5 mg PO Q6H PRN PRN Reason: Pain, Moderate (Pain Scale 4-6 Last Admin: 05/24/21 09:50 Dose: 5 mg Documented by: JERARDO Pharmacy Consult (Consult Rx Perform Med Rec) 1 each MISCELLANE ONCE PRN PRN Reason: Consult order Pharmacy Consult (Consult Rx Vancomycin Dosing) 1 each MISCELLANE DAILY PRN PRN Reason: Consult order Sodium Chloride (0.9 % Sodium Chloride Flush 3 Ml Syringe) 3 ml IVFLUSH QSHIFT [facility] Last Admin: 05/24/21 09:10 Dose: Not Given Documented by: JERARDO Non-Admin Reason: IV Running Tiotropium [place] (Tiotropium [place] 18 Mcg Cap.W.Dev) 1 puff INHALE RDAILY [facility] Last Admin: 05/24/21 08:02 Dose: 1 puff Documented by: ALDA Tizanidine HCl (Tizanidine Hcl 4 Mg Tablet) 2 mg PO DAILY PRN PRN Reason: for muscle spasm Last Admin: 05/24/21 09:06 Dose: 2 mg Documented by: JERARDO Valsartan (Valsartan 160 Mg Tablet) 160 mg PO DAILY [facility] Last Admin: 05/24/21 09:08 Dose: 160 mg Documented by: JERARDO Labs CBC & Chem 7: 05/24/21 06:26 05/24/21 06:26 Labs: Laboratory Results - last 24 hr 05/24/21 05/24/21 06:26 06:26 MCV 92.3 MCH 31.9 MCHC 34.5 RDW 12.9 Plt Count 129 L MPV 10.2 Immature Gran % (Auto) Cancelled Neut % (Auto) Cancelled Lymph % (Auto) Cancelled [place] % (Auto) Cancelled Eos % (Auto) Cancelled Baso % (Auto) Cancelled Lymph # (Auto) Cancelled [place] # (Auto) Cancelled Eos # (Auto) Cancelled Baso # (Auto) Cancelled Abs Immat Gran (auto) Cancelled Absolute Neuts (auto) Cancelled Absolute Nucleated RBC 0.000 Nucleated RBC % (auto) 0.0 Neutrophils % (Manual) 52 Band Neutrophils % 11 H Lymphocytes % (Manual) 18 L Monocytes % (Manual) 17 H Metamyelocytes % 1 Myelocytes % 1 Abs Neuts (Manual) 3.7 Lymphocytes # (Manual) 1.0 Monocytes # (Manual) 1.0 Metamyelocytes # 0.1 Myelocytes # 0.1 Toxic Granulation PRESENT Platelet Estimate DECREASED Plt Morphology Comment NORMAL RBC Morphology NOTED Microcytosis 1+ (5-14) Anion Gap 17 Estim Creat Clear Calc 59.1 Estimated GFR > 60 Fasting Glucose 102 H Calcium 7.8 L Total Bilirubin 0.4 AST 14 ALT 11 Alkaline Phosphatase 80 Total Protein 5.5 L Albumin 3.1 L Microbiology Microbiology Results: Microbiology 05/23/21 17:15 Gram Stain - Final Catheter Tip - Other Routine Culture - Final Anaerobic Culture - Preliminary Assessment and Plan (1) Bacteriuria: Status: Acute (2) DVT (deep venous thrombosis): Status: Acute Assessment and Plan: 76-year-old newly diagnosed female with small cell lung cancer. Subcu port removed yesterday by IR; marked improvement this a.m.. Verified with IR can start oral anticoagulation today. 1. Infected venous access port; Blood cultures 2/2 Pseudomonas sensitive to Zosyn. Supplemental IV fluids; oxycodone for pain 2. Right subclavian/right internal jugular thrombus Start Eliquis today. Heme/Onc consult 3. Neutropenia Continue current coverage; precautions taken Slowly improving 4.Small cell carcinoma of the lung Will consult Oncology. Further plans as per their recommendations 5. Disposition Wishes SNF placement; have PT evaluate Quality Stroke Does the patient have a stroke diagnosis?: No VTE Prior VTE?: No VTE Risk Level:: Medical - moderate - high VTE Device Contraindication: Treatment Not Indicated VTE Drug Contraindication: N/A - Med Ordered
--- NOTE | 2021-05-24 16:21 | P.CNHO_ITS ---
Subjective - Subjective Chief complaint: CONSULT FOR: 1. LUNG CANCER. 2. RIGHT SUBCLAVIAN DVT. Patient: known to practice within the last 3 years Consult date: 05/24/21 Requesting Physician: Rima. Primary Care Provider: Johnnie Physician Medical Summary: DIAGNOSIS: SMALL CELL CARCINOMA OF THE LUNG. RIGHT SUBCLAVIAN DVT, RELATED TO PORT-A-CATH. HPI - Consult Narrative Reason for consult: Consult for: 1. Lung cancer. 2. Right subclavian DVT. Narrative: Rufina Abbott is a pleasant 76 year old lady, who was diagnosed with small cell lung cancer. She mentioned that the whole investigations started because of hoarseness of voice that has been ongoing for several weeks. Chest x-ray and CT scans in April revealed a lung mass. She underwent bronchoscopy and biopsy, subsequently diagnosed with small cell lung cancer. She underwent staging workup. She had a Port-A-Cath placed. She was started on carboplatin/etoposide and atezolizumab chemotherapy on 05/09. On 05/05/2021 patient underwent placement of a right-sided tunnel catheter via IR for planned chemotherapy. Per notes this was without incident. Patient went home. Over the last 2 weeks, she initially developed some nausea and over the last several days, prior to admission fever and chills; She stated fevers to 101. In the emergency room, portacath site found to be warm and erythematous and p atient febrile. White count initially 0.4. Given Vanco and Zosyn. She was subsequently admitted and continued on the same regimen. She was then noted to have pain and edema over the right upper extremity. On 05/23 she underwent an ultrasound of the right upper extremity which revealed: 1. Positive for deep venous thrombosis right subclavian vein and right internal jugular vein. 2. Right axillary vein and right ulnar vein are not visualized and cannot assess for additional thrombus. 3. Right brachial, basilic, cephalic, and radial veins are patent. She has been started on Lovenox. Review of Systems ROS: She says that she has chronic cough and it has not worsened significantly. No hemoptysis or any acute symptoms. She does report some fatigue and weight loss she noticed recently but does not quantify the weight loss. She has chronic dizziness and balance issues from problems with cervical spine. She also has chronic numbness in her hands because of her neck problems. She denies chest pain or trouble breathing. She has persistent swelling and redness over the right upper arm. She denies any difficulty swallowing food. No change in bowel habits, abdominal discomfort, diarrhea or constipation. Denies urinary complaints. No joint pains or muscle pain. Denies focal weakness. She does feel depressed. Review of Systems - Constitutional Reports system reviewed and no additional complaints, except as documented - Eyes Reports system reviewed and no additional complaints, except as documented - ENT Reports system reviewed and no additional complaints, except as documented - Cardiovascular Reports system reviewed and no additional complaints, except as documented - Respiratory Reports no additional respiratory complaints - Gastrointestinal Reports system reviewed and no additional complaints, except as documented - Genitourinary Reports no additional female genitourinary complaints - Musculoskeletal Reports system reviewed and no additional complaints, except as documented - Integumentary/Breasts Skin/Breast: Reports no additional skin complaints - Neurologic Denies focal weakness, Denies numbness, Denies sensory deficit - Psychiatric Reports system reviewed and no additional complaints, except as documented - Endocrine Reports no additional endocrine complaints - Hematologic/Lymphatic Reports system reviewed and no additional complaints, except as documented - Allergic/Immunologic Reports system reviewed and no additional complaints, except as documented Oncology Screenings - ECOG Performance Status ECOG Performance Status: 2 [facility] Medical History: Medical History (Last Reviewed 05/21/21 @ 22:34 by Chelo Hsu MD) Cervicalgia COPD, severe Hypertension, essential Nephropathy Functional capacity: uses cane/walker Patient : No Family History: Family History (Last Reviewed 05/21/21 @ 22:34 by Chelo Hsu MD) Father No problems noted. Mother No problems noted. Brother No problems noted. Brother No problems noted. Sister No problems noted. Daughter No problems noted. Daughter No problems noted. Son No problems noted. Son No problems noted. Son No problems noted. Son No problems noted. Son No problems noted. Surgical History: Surgical History (Last Reviewed 05/21/21 @ 22:34 by Chelo Hsu MD) History of cervical discectomy History of surgery Social History: Social History (Last Reviewed 05/21/21 @ 22:34 by Chelo Hsu MD) Living Situation History: Household Members: Significant Other Housing: Apartment Housing Other:: duplex Do you presently have visiting nurse or other home services: No Alcohol History: Alcohol intake: never Alcohol History Details: Alcohol intake frequency: a few times a month Tobacco History: Patient Tobacco Use Status: Former Tobacco user Tobacco use type: Cigarette Cigarette Packs Per Day: 2 Smoke Quit Date: 2007 Advance Directives: Advance Directives Date on File: 04/13/21 Occupation Assessmet: service: No Current occupational status: unemployed Current occupational status: retired Current occupational status: disabled Home Medications and Allergies Current Medications: Current Medications Acetaminophen (Acetaminophen 325 Mg Tablet) 650 mg PO Q8H PRN PRN Reason: Pain Acetaminophen (Acetaminophen 325 Mg Tablet) 650 mg PO Q6H PRN PRN Reason: Pain, Mild (Pain Scale 1-3) Albuterol Sulfate (Albuterol Sulfate 90 Mcg 8 Gm Inhaler) 2 puff INHALE Q4H PRN PRN Reason: Shortness Of Breath Last Admin: 05/20/21 21:44 Dose: 2 puff Documented by: Albuterol/Ipratropium (Albuterol/Iprat 2.5/0.5mg 3 Ml Ampul.Neb) 3 ml INHALE RQ4H PRN PRN Reason: Shortness of Breath/Wheezing Last Admin: 05/24/21 11:43 Dose: 3 ml Documented by: Enoxaparin Sodium (Enoxaparin Sodium 60 Mg/0.6 Ml Syringe) 55 mg SUBCUT Q12H [facility] Last Admin: 05/24/21 09:08 Dose: 55 mg Documented by: Fluticasone/Vilanterol (Fluticasone/Vilanterol 200/25 Blst.W.Dev) 1 puff INHALE DAILY [facility] Last Admin: 05/24/21 08:02 Dose: 1 puff Documented by: Hydrochlorothiazide (Hydrochlorothiazide 12.5 Mg Tablet) 12.5 mg PO DAILY [facility] Last Admin: 05/24/21 09:08 Dose: 12.5 mg Documented by: Hydroxyzine HCl (Hydroxyzine Hcl 25 Mg Tablet) 25 mg PO Q8H PRN PRN Reason: anxiety/restlessness Last Admin: 05/24/21 05:39 Dose: 25 mg Documented by: Piperacillin Sod/Tazobactam (Sod 3.375 gm/ Sodium Chloride) 50 mls @ 100 mls/hr IV Q6H [facility] Last Infusion: 05/24/21 09:38 Dose: Infused Documented by: Dextrose/Sodium Chloride (D51/2ns) 1,000 mls @ 80 mls/hr IVCONT .[id number] [facility] Last Admin: 05/24/21 05:33 Dose: 80 mls/hr Documented by: Lidocaine (Lidocaine 4 % Patch Adh..Patch) 1 patch TRANSDERMA DAILY [facility]; Protocol Last Admin: 05/24/21 09:04 Dose: Not Given Documented by: Melatonin (Melatonin 3 Mg Tablet) 6 mg PO BEDTIME PRN PRN Reason: Insomnia Last Admin: 05/23/21 19:57 Dose: 6 mg Documented by: Morphine Sulfate (Morphine Sulfate 2 Mg/Ml Cartridge) 2 mg IVPUSH Q3H PRN; Pr otocol PRN Reason: Pain, Moderate (Pain Scale 4-6 Ondansetron HCl (Ondansetron Hcl 4 Mg/2 Ml Vial) 4 mg IVPUSH Q8H PRN PRN Reason: Nausea and Vomiting Oxycodone HCl (Oxycodone Hcl Immed Release 5 Mg Tablet) 5 mg PO Q6H PRN PRN Reason: Pain, Moderate (Pain Scale 4-6 Last Admin: 05/24/21 09:50 Dose: 5 mg Documented by: Pharmacy Consult (Consult Rx Perform Med Rec) 1 each MISCELLANE ONCE PRN PRN Reason: Consult order Pharmacy Consult (Consult Rx Vancomycin Dosing) 1 each MISCELLANE DAILY PRN PRN Reason: Consult order Sodium Chloride (0.9 % Sodium Chloride Flush 3 Ml Syringe) 3 ml IVFLUSH QSHIFT [facility] Last Admin: 05/24/21 09:10 Dose: Not Given Documented by: Tiotropium [place] (Tiotropium [place] 18 Mcg Cap.W.Dev) 1 puff INHALE RDAILY [facility] Last Admin: 05/24/21 08:02 Dose: 1 puff Documented by: Tizanidine HCl (Tizanidine Hcl 4 Mg Tablet) 2 mg PO DAILY PRN PRN Reason: for muscle spasm Last Admin: 05/24/21 09:06 Dose: 2 mg Documented by: Valsartan (Valsartan 160 Mg Tablet) 160 mg PO DAILY [facility] Last Admin: 05/24/21 09:08 Dose: 160 mg Documented by: Home Medications Medication Instructions Recorded Confirmed Type albuterol sulfate 90 mcg/actuation 2 puff INHALATION Q4H PRN 04/13/21 05/20/21 History aerosol inhaler (ProAir HFA) acetaminophen 650 mg 650 mg PO Q8H PRN 05/20/21 05/20/21 History tablet,extended release (Tylenol 8 Hour) irbesartan 300 1 tab PO DAILY 05/20/21 05/20/21 History mg-hydrochlorothiazide 12.5 mg tablet tiotropium bromide 18 mcg capsule 1 cap INHALATION BEDTIME 05/20/21 05/20/21 History with inhalation device (Spiriva with HandiHaler) Allergies Allergy/AdvReac Type Severity Reaction Status Date / Time No Known Allergies Allergy Verified 05/05/21 09:29 Physical Exam Vital signs: Vital Signs Temp 99.2 F 05/24/21 15:37 Pulse 95 05/24/21 15:37 Resp 15 05/24/21 15:37 BP 120/60 05/24/21 15:37 Pulse Ox 95 05/24/21 15:37 Intake & Output 05/23/21 05/24/21 05/24/21 18:59 06:59 18:59 Intake Total 1100 / 2490 1390 / 2490 530 / 530 Output Total 600 / 1150 550 / 1150 300 / 300 Balance 500 / 1340 840 / 1340 230 / 230 Urine Output (Average ml/kg/hr) 0.90 0.82 0.45 Intake: Intake, Oral Amount 240 / 240 480 / 480 Intake, IV Amount 1100 / 2250 1150 / 2250 50 / 50 Magnesium Sulfate/H2O 2 gm In 50 / 50 50 ml @ 25 mls/hr IV ONCE ONE Rx#:[id number] Piperacillin Sodium/Tazobactam 50 / 200 150 / 200 50 / 50 3.375 gm In 0.9 % Sodium Chloride 50 ml @ 100 mls/hr IV Q6H [facility] Rx#:[id number] 0.9 % Sodium Chloride 1,000 ml 1000 / 2000 1000 / 2000 @ 100 mls/hr IVCONT .Q10H [facility] Rx#:[id number] Output: Output, Urine Amount 600 / 1150 550 / 1150 300 / 300 Other: Breakfast % Eaten 100% Lunch % Eaten 100% Urine Bedpan Bedpan Bedside Commode Urine Color Yellow Yellow Yellow Weight 55.8 kg Weight 55.8 kg - Constitutional Present: moderate distress - Routine HEENT Exam Head: Present: normal inspection, normocephalic Eye: Present: normal appearance ENT: Present: mucous membranes moist - Routine Neck Exam Present: supple - Routine Respiratory Exam Present: decreased breath sounds - Routine Cardiovascular Exam Cardiovascular: Present: RRR, S1, S2 - Routine Abdominal Exam Present: diminished bowel sounds, nontender Hem/Onc Consult Result - Labs CBC & Chem 7: 05/27/21 05:58 05/27/21 05:58 Labs: Short CBC 05/24/21 Range/Units 06:26 WBC 5.8 (4.8-10.8) X10*3/uL Hgb 7.9 L (12.0-16.0) g/dl Hct 22.9 L (37-47) % Plt Count 129 L (160-400) X10*3/uL BMP 05/24/21 06:26 Sodium 137 Potassium 3.5 Chloride 106 Carbon Dioxide 18 L BUN 4 L D Creatinine 0.71 Calcium 7.8 L Liver Function 05/24/21 Range/Units 06:26 Total Bilirubin 0.4 (0.0-1.0) mg/dL AST 14 (5-31) U/L ALT 11 (0-31) U/L Alkaline Phosphatase 80 (39-117) U/L Albumin 3.1 L (3.5-5.0) g/dL Assessment and Plan Patient Active problem list reviewed?: Yes (1) Non-small cell lung cancer (NSCLC) Status: Acute Assessment and plan: 76-year-old newly diagnosed female with small cell lung cancer. Subcu port removed yesterday by IR; marked improvement this a.m.. Verified with IR can start oral anticoagulation today. 1. Infected venous access port; Blood cultures 2/2 Pseudomonas sensitive to Zosyn. Supplemental IV fluids; oxycodone for pain 2. Right subclavian/right internal jugular thrombus Start Eliquis today. Heme/Onc consult 3. Neutropenia Continue current coverage; precautions taken Slowly improving 4.Small cell carcinoma of the lung: (2) Small cell lung carcinoma Status: Acute Assessment and plan: 1. This is a 76-year-old woman with locally advanced small cell lung cancer. She presented with hoarseness of voice, chest x-ray performed 04/13/2021 revealed abnormal soft tissue fullness in the left suprahilar region abutting the aortic arch. neck with contrast the same day revealed emphysema, spiculated left upper lobe nodule and left hilar and mediastinal lymphadenopathy. Larynx, nasopharynx and oropharynx were normal. No enlarged neck nodes seen. CT chest with contrast on 04/13/2021 revealed enlarged mediastinal and hilar lymph nodes, largest roberto mass measuring 1.8 x 6.8 cm. This was continues with abnormal soft tissue mass in the left pulmonary hilum that measures 5 x 5 x 6 cm. Small liver lesion, finding suspicious for primary lung cancer, small cell cancer. Transbronchial biopsy of left upper lobe lung mass performed 04/15/2021 revealed small cell carcinoma. For staging, she had whole-body PET-CT and brain MRI with contrast. Radiation oncology consultation has been made. She has locally advanced disease, metastatic disease is also possibility. Chemotherapy/systemic therapy with carboplatin, etoposide and atezolizumab in the first-line setting, was recommend. MediPort placement by IR for chemotherapy administration has been discussed. . PLAN: She presented with thrombosis and infection around the Port-A-Cath. The port has been removed. She is currently on antibiotics. Would continue anticoagulation, with Lovenox, for now. Thank you, CC: - Time Spent With Patient Time Spent with Patient (in minutes): 30
[2021-05-24] MEDS: Acetaminophen 325 MG TABLET 650 MG PO (18:52)
[2021-05-24] MEDS: 0.9 % Sodium Chloride Flush 3 ML SYRINGE IVFLUSH (19:55)
[2021-05-24] MEDS: Morphine Sulfate 2 MG/ML CARTRIDGE IVPUSH (20:03)
[2021-05-24] MEDS: Melatonin 3 MG TABLET 6 MG PO (22:02)
[2021-05-25] VITALS (10 sets, daily range): BP systolic 92–182; BP diastolic 42–74; PULSE 80–107; RESP 17–22; TEMP 36.7–37.6; O2SAT 92–96
[2021-05-25] MEDS: oxyCODONE HCl Immed Release 5 MG TABLET PO ×3 (00:41→12:39)
[2021-05-25] MEDS: Piperacillin Sodium/Tazobactam 3.375 GM in 0.9 % Sodium Chloride 50 ML IV (03:28)
[2021-05-25] MEDS: hydrOXYzine HCL 25 MG TABLET PO ×3 (03:40→20:54)
[2021-05-25] MEDS: Dextrose 5 % and 0.45 % NaCl 1,000 ML 80 ML IVCONT (06:39)
[2021-05-25 08:08] LABS: Hematocrit 22.5 % (37-47); Hemoglobin 7.8 g/dl (12.0-16.0); Mean Corpuscular HGB Conc 34.7 g/dl (31.0-35.0); Mean Corpuscular Hemoglobin 31.6 pg (27.0-33.0); Mean Corpuscular Volume 91.1 fL (80-98); Mean Platelet Volume 9.2 fL (9.4-12.3); Platelet Count 173 X10*3/uL (160-400); Red Blood Count 2.47 X10*6/uL (4.20-5.50); White Blood Count 7.9 X10*3/uL (4.8-10.8)
[2021-05-25 08:42] LABS: Blood Urea Nitrogen 6 mg/dL (9-16); Creatinine Clr Calc Pharmacy 53.8; Estimated Glomerular Filt Rate > 60; Glucose Random 112 mg/dL (60-115); Magnesium 1.6 mg/dL (1.6-2.6)
[2021-05-25 08:58] LABS: Anion Gap 16 (12-20); Calcium 8.6 mg/dL (8.4-10.2); Carbon Dioxide 22 mmol/L (22-29); Chloride 104 mmol/L (96-108); Potassium 2.9 mmol/L (3.3-5.1); Sodium 139 mmol/L (135-145)
[2021-05-25] MEDS: hydroCHLOROthiazide 12.5 MG TABLET PO (09:15)
[2021-05-25] MEDS: Valsartan 160 MG TABLET PO (09:15)
[2021-05-25] MEDS: Lidocaine 4 % Patch ADH..PATCH 1 PATCH TRANSDERMA (09:16)
[2021-05-25] MEDS: Fluticasone/Vilanterol 200/25 BLST.W.DEV 1 PUFF INHALE (09:18)
[2021-05-25] MEDS: Enoxaparin Sodium 60 MG/0.6 ML SYRINGE 55 MG SUBCUT ×2 (09:18→20:53)
[2021-05-25] MEDS: Albuterol/Iprat 2.5/0.5MG 3 ML AMPUL.NEB INHALE ×2 (09:18→18:09)
[2021-05-25] MEDS: Potassium Chloride Packet 20 MEQ PACKET 40 MEQ PO (11:20)
--- NOTE | 2021-05-25 12:01 | MHC.CLN ---
Addendum entered by Ana Vilchis, ALEJANDRA 05/25/21 14:04: agree with provider's assessment below Original Note: F/U PO INTAKE REPORTED 100% X 2 MEALS 50% X 1 MEAL DIET RX: REGULAR-RESTART NEUTROPENIC R/T LUNG CA MONITOR PO INTAKE CLOSELY
--- NOTE | 2021-05-25 12:27 | HO.PM.IMPN ---
Subjective Subjective Date of Service: 05/25/21 Interval History: cc: chest erythema, pain interval history: tired, frustrated with needle sticks, no change in RUE swelling Cardiovascular Cardiovascular: Reports no additional cardiovascular complaints Respiratory Respiratory: Reports no additional respiratory complaints Physical Exam Vital Signs: Vital Signs: Last Vital Signs Temp 98.8 F 05/25/21 11:21 Pulse 107 H 05/25/21 11:21 Resp 20 05/25/21 11:21 BP 182/74 H 05/25/21 11:21 Pulse Ox 95 05/25/21 11:21 Body Mass Index 21.1 General: AO X 3, no acute distress, ill appearing Resp: CTA bilateral, no accessory muscles used CVS: S1,S2,RRR GI: soft, non tender, non distended Neuro: motor grossly intact, alert Psych: appropriate affect, appropriate insight RUE swelling chest wall: some erythema over removed port site Objective Data Active Medications Acetaminophen (Acetaminophen 325 Mg Tablet) 650 mg PO Q8H PRN PRN Reason: Pain Acetaminophen (Acetaminophen 325 Mg Tablet) 650 mg PO Q6H PRN PRN Reason: Pain, Mild (Pain Scale 1-3) Last Admin: 05/24/21 18:52 Dose: 650 mg Documented by: JERARDO Albuterol Sulfate (Albuterol Sulfate 90 Mcg 8 Gm Inhaler) 2 puff INHALE Q4H PRN PRN Reason: Shortness Of Breath Last Admin: 05/20/21 21:44 Dose: 2 puff Documented by: MARK Albuterol/Ipratropium (Albuterol/Iprat 2.5/0.5mg 3 Ml Ampul.Neb) 3 ml INHALE RQ4H PRN PRN Reason: Shortness of Breath/Wheezing Last Admin: 05/25/21 09:18 Dose: 3 ml Documented by: ALDA Enoxaparin Sodium (Enoxaparin Sodium 60 Mg/0.6 Ml Syringe) 55 mg SUBCUT Q12H [facility] Last Admin: 05/25/21 09:18 Dose: 55 mg Documented by: BEN Fluticasone/Vilanterol (Fluticasone/Vilanterol 200/25 Blst.W.Dev) 1 puff INHALE DAILY [facility] Last Admin: 05/25/21 09:18 Dose: 1 puff Documented by: ALDA Hydrochlorothiazide (Hydrochlorothiazide 12.5 Mg Tablet) 12.5 mg PO DAILY [facility] Last Admin: 05/25/21 09:15 Dose: 12.5 mg Documented by: BEN Hydroxyzine HCl (Hydroxyzine Hcl 25 Mg Tablet) 25 mg PO Q8H PRN PRN Reason: anxiety/restlessness Last Admin: 05/25/21 03:40 Dose: 25 mg Documented by: MONICA Levofloxacin (Levofloxacin 750 Mg Tablet) 750 mg PO Q24H [facility] Lidocaine (Lidocaine 4 % Patch Adh..Patch) 1 patch TRANSDERMA DAILY [facility]; Protocol Last Admin: 05/25/21 09:16 Dose: 1 patch Documented by: BEN Magnesium Oxide (Magnesium Oxide 400 Mg Tablet) 400 mg PO BIDPC [facility] Melatonin (Melatonin 3 Mg Tablet) 6 mg PO BEDTIME PRN PRN Reason: Insomnia Last Admin: 05/24/21 22:02 Dose: 6 mg Documented by: MONICA Morphine Sulfate (Morphine Sulfate 2 Mg/Ml Cartridge) 2 mg IVPUSH Q3H PRN; Protocol PRN Reason: Pain, Moderate (Pain Scale 4-6 Last Admin: 05/24/21 20:03 Dose: 2 mg Documented by: MONICA Ondansetron HCl (Ondansetron Hcl 4 Mg/2 Ml Vial) 4 mg IVPUSH Q8H PRN PRN Reason: Nausea and Vomiting Oxycodone HCl (Oxycodone Hcl Immed Release 5 Mg Tablet) 5 mg PO Q6H PRN PRN Reason: Pain, Moderate (Pain Scale 4-6 Last Admin: 05/25/21 06:06 Dose: 5 mg Documented by: MONICA Pharmacy Consult (Consult Rx Perform Med Rec) 1 each MISCELLANE ONCE PRN PRN Reason: Consult order Pharmacy Consult (Consult Rx Vancomycin Dosing) 1 each MISCELLANE DAILY PRN PRN Reason: Consult order Sodium Chloride (0.9 % Sodium Chloride Flush 3 Ml Syringe) 3 ml IVFLUSH QSHIFT [facility] Last Admin: 05/25/21 09:20 Dose: Not Given Documented by: BEN Non-Admin Reason: no iv access Tiotropium [place] (Tiotropium [place] 18 Mcg Cap.W.Dev) 1 puff INHALE RDAILY [facility] Last Admin: 05/25/21 09:18 Dose: 1 puff Documented by: ALDA Tizanidine HCl (Tizanidine Hcl 4 Mg Tablet) 2 mg PO DAILY PRN PRN Reason: for muscle spasm Last Admin: 05/24/21 09:06 Dose: 2 mg Documented by: JERARDO Valsartan (Valsartan 160 Mg Tablet) 160 mg PO DAILY [facility] Last Admin: 05/25/21 09:15 Dose: 160 mg Documented by: BEN Labs CBC & Chem 7: 05/25/21 07:49 05/25/21 07:49 Labs: Laboratory Results - last 24 hr 05/25/21 05/25/21 07:49 07:49 MCV 91.1 MCH 31.6 MCHC 34.7 RDW 13.0 Plt Count 173 D MPV 9.2 L Absolute Nucleated RBC 0.000 Nucleated RBC % (auto) 0.0 Anion Gap 16 Estim Creat Clear Calc 53.8 Estimated GFR > 60 Random Glucose 112 Calcium 8.6 D Magnesium 1.6 Microbiology Microbiology Results: Microbiology 05/23/21 17:15 Gram Stain - Final Catheter Tip - Other Routine Culture - Final Anaerobic Culture - Preliminary Assessment and Plan (1) Bacteriuria: Status: Acute (2) DVT (deep venous thrombosis): Status: Acute Assessment and Plan: 76-year-old Female with 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 presented with infected port complicated by pseudomonas bacteremia and RUE DVT Infected venous access port in nutropenic pateint complicated by pseudomonas bacteremia from 05/20/21, repeat 05/25/21 pending port removed 05/23/21 has been on IV zosyn, due to poor access, changed to po levaquin, plan for 3 weeks total oxycodone for pain Right subclavian/right internal jugular thrombus due to port port removed 05/23/21 continue lovenox 1mg/kg q12, will defer to hematology for final choice of A/C and duration Neutropenia due to chemo resolved locally advance SCLC with possible mets outpatient follow up normocytic anemia stable, suspect mostly inflammatory due to infection, no evidence of bleed Disposition PT recommending [facility] Quality Stroke Does the patient have a stroke diagnosis?: No VTE Prior VTE?: No VTE Risk Level:: Medical - moderate - high VTE Device Contraindication: Treatment Not Indicated VTE Drug Contraindication: N/A - Med Ordered
[2021-05-25] MEDS: levoFLOXacin 750 MG TABLET PO (12:33)
--- NOTE | 2021-05-25 13:57 | MHC.CM.PN ---
per rounds pt not ready for dc ,picc not placed pt will need placement
[2021-05-25] MEDS: Acetaminophen 325 MG TABLET 650 MG PO (17:59)
[2021-05-25] MEDS: Magnesium Oxide 400 MG TABLET PO (18:00)
[2021-05-25] MEDS: TiZANidine HCL 4 MG TABLET 2 MG PO (20:53)
[2021-05-25] MEDS: Melatonin 3 MG TABLET 6 MG PO (20:54)
[2021-05-25] MEDS: 0.9 % Sodium Chloride Flush 3 ML SYRINGE IVFLUSH (20:54)
[2021-05-26] VITALS (10 sets, daily range): BP systolic 118–177; BP diastolic 49–72; PULSE 81–104; RESP 15–20; TEMP 36.9–37.6; O2SAT 93–98
[2021-05-26] MEDS: Albuterol/Iprat 2.5/0.5MG 3 ML AMPUL.NEB INHALE ×4 (01:54→20:16)
[2021-05-26] MEDS: Acetaminophen 325 MG TABLET 650 MG PO (02:46)
[2021-05-26] MEDS: hydrOXYzine HCL 25 MG TABLET PO ×2 (06:03→13:04)
[2021-05-26 07:16] LABS: Mean Corpuscular HGB Conc 34.3 g/dl (31.0-35.0); Mean Corpuscular Hemoglobin 31.7 pg (27.0-33.0); Mean Corpuscular Volume 92.3 fL (80-98); Mean Platelet Volume 9.6 fL (9.4-12.3); NRBC Pct Auto 0.3 /100WBC (0.0-0.2); Platelet Count 197 X10*3/uL (160-400); Red Blood Count 2.21 X10*6/uL (4.20-5.50); Red Cell Distribution Width 13.2 % (11.0-16.0); White Blood Count 9.1 X10*3/uL (4.8-10.8)
[2021-05-26 07:36] LABS: Hematocrit 20.4 % (37-47)
[2021-05-26 08:02] LABS: Anion Gap 15 (12-20); Blood Urea Nitrogen 8 mg/dL (9-16); Calcium 8.5 mg/dL (8.4-10.2); Carbon Dioxide 24 mmol/L (22-29); Chloride 104 mmol/L (96-108); Creatinine Clr Calc Pharmacy 51.2; Estimated Glomerular Filt Rate > 60; Glucose Fasting 119 mg/dL (60-99); Magnesium 1.3 mg/dL (1.6-2.6); Potassium 3.5 mmol/L (3.3-5.1); Sodium 139 mmol/L (135-145)
[2021-05-26] MEDS: Fluticasone/Vilanterol 200/25 BLST.W.DEV 1 PUFF INHALE (08:18)
[2021-05-26] MEDS: hydroCHLOROthiazide 12.5 MG TABLET PO (10:30)
[2021-05-26] MEDS: Valsartan 160 MG TABLET PO (10:30)
[2021-05-26] MEDS: Enoxaparin Sodium 60 MG/0.6 ML SYRINGE 55 MG SUBCUT ×2 (10:30→20:34)
[2021-05-26] MEDS: Magnesium Oxide 400 MG TABLET PO ×2 (10:31→16:35)
[2021-05-26] MEDS: levoFLOXacin 750 MG TABLET PO (10:31)
--- NOTE | 2021-05-26 11:09 | MHC.CM.PN ---
Addendum entered by Alise Rodriguez 05/26/21 13:54: PT SEEN BY HOSPICE. CURRENT DC PLAN IS HOSPICE IN A SNF ONCE PLACEMENT IS FOUND. CM STILL WAITING FOR SNF TO CONFIRM PT HAS PENITENTIARY COVERAGE THROUGH HER INSURANCE. PT WOULD LIKE TO BE NEAR [place] WHERE HER SON LIVES Addendum entered by Alise Rodriguez 05/26/21 11:13: REFERRAL PLACED FOR HOSPICE INFORMATIONAL Original Note: PER MD ROUNDS, PT CHOOSING HOSPICE. SNFS UPDATED WITH NEW PLAN AWAITING RESPONSES
[2021-05-26] MEDS: oxyCODONE HCl Immed Release 5 MG TABLET PO ×2 (13:05→20:30)
--- NOTE | 2021-05-26 13:06 | HO.PM.IMPN ---
Subjective Subjective Date of Service: 05/26/21 Interval History: cc: infected port interval history: rue pain and swelling continues, tired Cardiovascular Cardiovascular: Reports no additional cardiovascular complaints Respiratory Respiratory: Reports no additional respiratory complaints Physical Exam Vital Signs: Vital Signs: Last Vital Signs Temp 99.7 F 05/26/21 11:02 Pulse 96 05/26/21 11:02 Resp 18 05/26/21 11:02 BP 125/63 05/26/21 11:02 Pulse Ox 97 05/26/21 11:02 Body Mass Index 21.1 General: AO X 3, no acute distress, ill appearing Resp:? CTA bilateral, no accessory muscles used CVS: S1,S2,RRR GI: soft, non tender, non distended Neuro:? motor grossly intact, alert Psych: appropriate affect, appropriate insight? RUE swelling chest wall: some erythema over removed port site Objective Data Active Medications Acetaminophen (Acetaminophen 325 Mg Tablet) 650 mg PO Q6H PRN PRN Reason: Pain, Mild (Pain Scale 1-3) Last Admin: 05/24/21 18:52 Dose: 650 mg Documented by: JERARDO Albuterol Sulfate (Albuterol Sulfate 90 Mcg 8 Gm Inhaler) 2 puff INHALE Q4H PRN PRN Reason: Shortness Of Breath Last Admin: 05/20/21 21:44 Dose: 2 puff Documented by: MARK Albuterol/Ipratropium (Albuterol/Iprat 2.5/0.5mg 3 Ml Ampul.Neb) 3 ml INHALE RQ4H PRN PRN Reason: Shortness of Breath/Wheezing Last Admin: 05/26/21 10:54 Dose: 3 ml Documented by: MATTIE Enoxaparin Sodium (Enoxaparin Sodium 60 Mg/0.6 Ml Syringe) 55 mg SUBCUT Q12H [facility] Last Admin: 05/26/21 10:30 Dose: 55 mg Documented by: EMILY Fluticasone/Vilanterol (Fluticasone/Vilanterol 200/25 Blst.W.Dev) 1 puff INHALE DAILY [facility] Last Admin: 05/26/21 08:18 Dose: 1 puff Documented by: MATTIE Hydrochlorothiazide (Hydrochlorothiazide 12.5 Mg Tablet) 12.5 mg PO DAILY [facility] Last Admin: 05/26/21 10:30 Dose: 12.5 mg Documented by: EMILY Hydroxyzine HCl (Hydroxyzine Hcl 25 Mg Tablet) 25 mg PO Q8H PRN PRN Reason: anxiety/restlessness Last Admin: 05/26/21 13:04 Dose: 25 mg Documented by: EMILY Levofloxacin (Levofloxacin 750 Mg Tablet) 750 mg PO Q24H [facility] Last Admin: 05/26/21 10:31 Dose: 750 mg Documented by: EMILY Lidocaine (Lidocaine 4 % Patch Adh..Patch) 1 patch TRANSDERMA DAILY [facility]; Protocol Last Admin: 05/25/21 09:16 Dose: 1 patch Documented by: Magnesium Oxide (Magnesium Oxide 400 Mg Tablet) 400 mg PO BIDPC [facility] Last Admin: 05/26/21 10:31 Dose: 400 mg Documented by: EMILY Melatonin (Melatonin 3 Mg Tablet) 6 mg PO BEDTIME PRN PRN Reason: Insomnia Last Admin: 05/25/21 20:54 Dose: 6 mg Documented by: MONICA Morphine Sulfate (Morphine Sulfate 2 Mg/Ml Cartridge) 2 mg IVPUSH Q3H PRN; Protocol PRN Reason: Pain, Moderate (Pain Scale 4-6 Last Admin: 05/24/21 20:03 Dose: 2 mg Documented by: MONICA Ondansetron HCl (Ondansetron Hcl 4 Mg/2 Ml Vial) 4 mg IVPUSH Q8H PRN PRN Reason: Nausea and Vomiting Oxycodone HCl (Oxycodone Hcl Immed Release 5 Mg Tablet) 5 mg PO Q6H PRN PRN Reason: pain Last Admin: 05/26/21 13:05 Dose: 5 mg Documented by: EMILY Pharmacy Consult (Consult Rx Perform Med Rec) 1 each MISCELLANE ONCE PRN PRN Reason: Consult order Pharmacy Consult (Consult Rx Vancomycin Dosing) 1 each MISCELLANE DAILY PRN PRN Reason: Consult order Sodium Chloride (0.9 % Sodium Chloride Flush 3 Ml Syringe) 3 ml IVFLUSH QSHIFT [facility] Last Admin: 05/26/21 10:24 Dose: Not Given Documented by: EMILY Non-Admin Reason: no iv Tiotropium [place] (Tiotropium [place] 18 Mcg Cap.W.Dev) 1 puff INHALE RDAILY [facility] Last Admin: 05/26/21 08:18 Dose: 1 puff Documented by: MATTIE Tizanidine HCl (Tizanidine Hcl 4 Mg Tablet) 2 mg PO DAILY PRN PRN Reason: for muscle spasm Last Admin: 05/25/21 20:53 Dose: 2 mg Documented by: MONICA Valsartan (Valsartan 160 Mg Tablet) 160 mg PO DAILY [facility] Last Admin: 05/26/21 10:30 Dose: 160 mg Documented by: EMILY Labs CBC & Chem 7: 05/26/21 06:54 05/26/21 06:54 Labs: Laboratory Results - last 24 hr 05/26/21 05/26/21 05/26/21 06:54 06:54 08:42 MCV 92.3 MCH 31.7 MCHC 34.3 RDW 13.2 Plt Count 197 MPV 9.6 Absolute Nucleated RBC 0.030 H Nucleated RBC % (auto) 0.3 H Anion Gap 15 Estim Creat Clear Calc 51.2 Estimated GFR > 60 Fasting Glucose 119 H Calcium 8.5 Magnesium 1.3 L* Blood Type O Positive Antibody Screen NEGATIVE Crossmatch See Detail Microbiology Microbiology Results: Microbiology 05/23/21 17:15 Gram Stain - Final Catheter Tip - Other Catheter Tip Culture - Final Pseudomonas aeruginosa Routine Culture - Final Anaerobic Culture - Preliminary 05/25/21 07:55 Blood Culture - Preliminary Blood - Venous No growth after 24 hours. 05/25/21 07:55 Blood Culture - Preliminary Blood - Venous No growth after 24 hours. 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 presented with infected port complicated by pseudomonas bacteremia and RUE DVT Infected venous access port in nutropenic pateint complicated by pseudomonas bacteremia from 05/20/21, repeat 05/25/21 no growth to date port removed 05/23/21 had been on IV zosyn 05/20-05/24, due to poor access, changed to po levaquin 05/25, plan for 3 weeks total end June 09, 2021 oxycodone for pain Right subclavian/right internal jugular thrombus due to port port removed 05/23/21 continue lovenox 1mg/kg q12, on discharge will change to DOAC Neutropenia due to chemo resolved locally advance SCLC with possible mets patient not interested in further disease directed treatment, requesting informational from hospice normocytic anemia stable, suspect mostly inflammatory due to infection, no evidence of bleed, goal hgb>7, will hold off on transfusion for now as patient has poor access and leaning towards hospice Disposition PT recommending SNF Quality Stroke Does the patient have a stroke diagnosis?: No VTE Prior VTE?: No VTE Risk Level:: Medical - moderate - high VTE Device Contraindication: Treatment Not Indicated VTE Drug Contraindication: N/A - Med Ordered
[2021-05-26] MEDS: Lidocaine 4 % Patch ADH..PATCH 1 PATCH TRANSDERMA (13:07)
[2021-05-26] MEDS: TiZANidine HCL 4 MG TABLET 2 MG PO (20:32)
[2021-05-26] MEDS: Melatonin 3 MG TABLET 6 MG PO (20:33)
[2021-05-27] VITALS (11 sets, daily range): BP systolic 122–170; BP diastolic 58–90; PULSE 80–110; RESP 18–20; TEMP 35.5–37.2; O2SAT 91–98
[2021-05-27] MEDS: oxyCODONE HCl Immed Release 5 MG TABLET PO ×3 (02:53→20:17)
[2021-05-27 06:20] LABS: Hematocrit 22.6 % (37-47); Hemoglobin 7.7 g/dl (12.0-16.0); Mean Corpuscular HGB Conc 34.1 g/dl (31.0-35.0); Mean Corpuscular Hemoglobin 31.4 pg (27.0-33.0); Mean Corpuscular Volume 92.2 fL (80-98); NRBC Pct Auto 0.3 /100WBC (0.0-0.2); Platelet Count 248 X10*3/uL (160-400); Red Blood Count 2.45 X10*6/uL (4.20-5.50); Red Cell Distribution Width 13.2 % (11.0-16.0); White Blood Count 11.5 X10*3/uL (4.8-10.8)
--- NOTE | 2021-05-27 06:22 | PC.NURSE ---
Upon turning and repositioning patient, found new areas on her buttocks. There are several with small pustules. Some of the pustules are white, others appear clear. Pictures taken and placed in chart. Dr notified of the change since admission (from one reddened area to several, some with the pustules). Wound nurse notified. Will pass along in report.
[2021-05-27 06:50] LABS: Anion Gap 18 (12-20); Blood Urea Nitrogen 10 mg/dL (9-16); Calcium 8.8 mg/dL (8.4-10.2); Carbon Dioxide 22 mmol/L (22-29); Chloride 104 mmol/L (96-108); Creatinine Clr Calc Pharmacy 51.8; Estimated Glomerular Filt Rate > 60; Glucose Fasting 100 mg/dL (60-99); Magnesium 1.3 mg/dL (1.6-2.6); Potassium 3.4 mmol/L (3.3-5.1); Sodium 141 mmol/L (135-145)
--- NOTE | 2021-05-27 06:51 | PC.NURSE ---
Notified of critical MG 1.3. Dr Cotton notified. Will pass along in report to day RN.
[2021-05-27] MEDS: Fluticasone/Vilanterol 200/25 BLST.W.DEV 1 PUFF INHALE (07:58)
[2021-05-27] MEDS: Albuterol/Iprat 2.5/0.5MG 3 ML AMPUL.NEB INHALE ×2 (08:04→18:25)
--- NOTE | 2021-05-27 10:50 | HO.PM.IMPN ---
Subjective Subjective Date of Service: 05/27/21 Interval History: cc: infected port interval history: RUE swelling improved, weak Cardiovascular Cardiovascular: Reports no additional cardiovascular complaints Respiratory Respiratory: Reports no additional respiratory complaints Physical Exam Vital Signs: Vital Signs: Last Vital Signs Temp 96 F L 05/27/21 07:04 Pulse 101 H 05/27/21 08:07 Resp 18 05/27/21 08:07 BP 170/90 H 05/27/21 07:04 Pulse Ox 93 05/27/21 07:04 Body Mass Index 21.1 General: AO X 3, no acute distress, ill appearing Resp:? CTA bilateral, no accessory muscles used CVS: S1,S2,RRR GI: soft, non tender, non distended Neuro:? motor grossly intact, alert Psych: appropriate affect, appropriate insight? RUE swelling chest wall: some erythema over removed port site Objective Data Active Medications Acetaminophen (Acetaminophen 325 Mg Tablet) 650 mg PO Q6H PRN PRN Reason: Pain, Mild (Pain Scale 1-3) Last Admin: 05/24/21 18:52 Dose: 650 mg Documented by: JERARDO Albuterol Sulfate (Albuterol Sulfate 90 Mcg 8 Gm Inhaler) 2 puff INHALE Q4H PRN PRN Reason: Shortness Of Breath Last Admin: 05/20/21 21:44 Dose: 2 puff Documented by: MARK Albuterol/Ipratropium (Albuterol/Iprat 2.5/0.5mg 3 Ml Ampul.Neb) 3 ml INHALE RQ4H PRN PRN Reason: Shortness of Breath/Wheezing Last Admin: 05/27/21 08:04 Dose: 3 ml Documented by: ZO Enoxaparin Sodium (Enoxaparin Sodium 60 Mg/0.6 Ml Syringe) 55 mg SUBCUT Q12H [facility] Last Admin: 05/26/21 20:34 Dose: 55 mg Documented by: LEVAR Fluticasone/Vilanterol (Fluticasone/Vilanterol 200/25 Blst.W.Dev) 1 puff INHALE DAILY [facility] Last Admin: 05/27/21 07:58 Dose: 1 puff Documented by: ZO Hydrochlorothiazide (Hydrochlorothiazide 12.5 Mg Tablet) 12.5 mg PO DAILY [facility] Last Admin: 05/26/21 10:30 Dose: 12.5 mg Documented by: EMILY Hydroxyzine HCl (Hydroxyzine Hcl 25 Mg Tablet) 25 mg PO Q8H PRN PRN Reason: anxiety/restlessness Last Admin: 05/26/21 13:04 Dose: 25 mg Documented by: EMILY Levofloxacin (Levofloxacin 750 Mg Tablet) 750 mg PO Q24H [facility] Last Admin: 05/26/21 10:31 Dose: 750 mg Documented by: EMILY Lidocaine (Lidocaine 4 % Patch Adh..Patch) 1 patch TRANSDERMA DAILY [facility]; Protocol Last Admin: 05/26/21 13:07 Dose: 1 patch Documented by: EMILY Magnesium Oxide (Magnesium Oxide 400 Mg Tablet) 400 mg PO BIDPC [facility] Last Admin: 05/26/21 16:35 Dose: 400 mg Documented by: EMILY Melatonin (Melatonin 3 Mg Tablet) 6 mg PO BEDTIME PRN PRN Reason: Insomnia Last Admin: 05/26/21 20:33 Dose: 6 mg Documented by: LEVAR Morphine Sulfate (Morphine Sulfate 2 Mg/Ml Cartridge) 2 mg IVPUSH Q3H PRN; Protocol PRN Reason: Pain, Moderate (Pain Scale 4-6 Last Admin: 05/24/21 20:03 Dose: 2 mg Documented by: MONICA Ondansetron HCl (Ondansetron Hcl 4 Mg/2 Ml Vial) 4 mg IVPUSH Q8H PRN PRN Reason: Nausea and Vomiting Oxycodone HCl (Oxycodone Hcl Immed Release 5 Mg Tablet) 5 mg PO Q6H PRN PRN Reason: pain Last Admin: 05/27/21 02:53 Dose: 5 mg Documented by: LEVAR Pharmacy Consult (Consult Rx Perform Med Rec) 1 each MISCELLANE ONCE PRN PRN Reason: Consult order Pharmacy Consult (Consult Rx Vancomycin Dosing) 1 each MISCELLANE DAILY PRN PRN Reason: Consult order Sodium Chloride (0.9 % Sodium Chloride Flush 3 Ml Syringe) 3 ml IVFLUSH QSHIFT [facility] Last Admin: 05/27/21 00:14 Dose: Not Given Documented by: LEVAR Non-Admin Reason: IV Running Tiotropium [place] (Tiotropium [place] 18 Mcg Cap.W.Dev) 1 puff INHALE RDAILY [facility] Last Admin: 05/27/21 07:58 Dose: 1 puff Documented by: ZO Tizanidine HCl (Tizanidine Hcl 4 Mg Tablet) 2 mg PO DAILY PRN PRN Reason: for muscle spasm Last Admin: 05/26/21 20:32 Dose: 2 mg Documented by: LEVAR Valsartan (Valsartan 160 Mg Tablet) 160 mg PO DAILY [facility] Last Admin: 05/26/21 10:30 Dose: 160 mg Documented by: EMILY Labs CBC & Chem 7: 05/27/21 05:58 05/27/21 05:58 Labs: Laboratory Results - last 24 hr 05/26/21 05/26/21 05/27/21 06:54 08:42 05:58 MCV 92.2 MCH 31.4 MCHC 34.1 RDW 13.2 Plt Count 248 D MPV 10.0 Absolute Nucleated RBC 0.040 H Nucleated RBC % (auto) 0.3 H Smear Path Review SEE NOTE Anion Gap Estim Creat Clear Calc Estimated GFR Fasting Glucose Calcium Magnesium Crossmatch See Detail 05/27/21 05:58 MCV MCH MCHC RDW Plt Count MPV Absolute Nucleated RBC Nucleated RBC % (auto) Smear Path Review Anion Gap 18 Estim Creat Clear Calc 51.8 Estimated GFR > 60 Fasting Glucose 100 H Calcium 8.8 Magnesium 1.3 L* Crossmatch Microbiology Microbiology Results: Microbiology 05/25/21 07:55 Blood Culture - Preliminary Blood - Venous No growth after 48 hours. 05/25/21 07:55 Blood Culture - Preliminary Blood - Venous No growth after 48 hours. 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 presented with infected port complicated by pseudomonas bacteremia and RUE DVT Infected venous access port in nutropenic pateint complicated by pseudomonas bacteremia from 05/20/21, repeat 05/25/21 no growth to date port removed 05/23/21 had been on IV zosyn 05/20-05/24, due to poor access, changed to po levaquin 05/25, plan for 3 weeks total end June 09, 2021 oxycodone for pain Right subclavian/right internal jugular thrombus due to port port removed 05/23/21 lovenox changed to eliquis 10mg bid for 7 days then decrease to 5mg bid swelling much improved today Neutropenia due to chemo resolved locally advance SCLC with possible mets patient not interested in further disease directed treatment, requesting hospice normocytic anemia stable, suspect mostly inflammatory due to infection, no evidence of bleed, goal hgb>7, will hold off on transfusion for now as patient has poor access and leaning towards hospice Disposition likely hospice at [facility] Quality Stroke Does the patient have a stroke diagnosis?: No VTE Prior VTE?: No VTE Risk Level:: Medical - moderate - high VTE Device Contraindication: Treatment Not Indicated VTE Drug Contraindication: N/A - Med Ordered
[2021-05-27] MEDS: Valsartan 160 MG TABLET PO (10:59)
[2021-05-27] MEDS: hydroCHLOROthiazide 12.5 MG TABLET PO (10:59)
[2021-05-27] MEDS: levoFLOXacin 750 MG TABLET PO (10:59)
[2021-05-27] MEDS: Magnesium Oxide 400 MG TABLET PO ×2 (11:02→16:11)
[2021-05-27] MEDS: Lidocaine 4 % Patch ADH..PATCH 1 PATCH TRANSDERMA (11:03)
[2021-05-27] MEDS: Apixaban 5 MG TABLET 10 MG PO ×2 (11:04→20:16)
[2021-05-27] MEDS: hydrOXYzine HCL 25 MG TABLET PO ×2 (11:10→20:21)
--- NOTE | 2021-05-27 13:04 | MHC.CM.PN ---
Addendum entered by Alise Rodriguez 05/27/21 14:32: CM DISCUSSED DC PLANS WITH PT. PT IS AGREEABLE TO [facility] AT [facility] IS WORKING ON INSURANCE AUTH PT PROVIDED CM WITH HER COVID VACCINE CARD AND COPIES WERE SENT TO [facility] AND PLACED IN CHART Original Note: PT HAS DECIDED SHE DOES NOT WANT TO UNDERGO CHEMOTHERAPY AND WOULD LIKE TO GO TO A SNF ON HOSPICE. [employer] REFERRALS WERE MADE FOR SNF PLACEMENT AND [facility] IS NOW OFFERING A BED HOWEVER BECAUSE [employer] MANAGES PTS MEDICAID/MEDICARE, INSURANCE AUTH WILL BE REQUIRED FIRST. [facility] LIAISON PLACED REQUEST FOR AUTH, CURRENTLY AWAITING INSURANCE COMPANY RESPONSE. [facility] ALSO REPORTS IF THEY ARE ABLE TO GET AUTH TODAY, THEY CAN ARRANGE HOSPICE ONCE SHE ARRIVES [facility]AILABILITY PRIOR TO SUNDAY.
--- NOTE | 2021-05-27 13:14 | MHC.CLN ---
Addendum entered by Ana Vilchis, ALEJANDRA 05/27/21 13:48: AGREE WITH PROVIDER'S ASSESSMENT BELOW Original Note: F/U PT IS AT INCREASED NUTRITION RISK R/T STAGE II PRESSURY INJURY ON LEFT BUTTOCK PO INTAKE DOCUMENTED 75% X 3 MEALS 50% X 1 MEAL DIET RX: NEUTROPENIC-APPROPRIATE PT PREVIOUSLY DENIED ALL SUPPLEMENTS MONITOR PO INTAKE CLOSELY
--- NOTE | 2021-05-27 13:18 | P.PNHO_ITS ---
Medical Summary - Medical Summary Date of Service: 05/27/21 Chief complaint: None reported Medical Summary: DIAGNOSIS: SMALL CELL CARCINOMA OF THE LUNG. RIGHT SUBCLAVIAN DVT, RELATED TO PORT-A-CATH. Interval History Interval history: Patient is awaiting placement at a [facility] for hospice care. She wants to have a discussion about her cancer treatment today. She offers no acute complaints such as pain, shortness of breath or abdominal complaints. Review of Systems - Constitutional Reports as per HPI, Reports no additional constitutional complaints - Neurologic Reports as per HPI, Denies focal weakness, Denies numbness, Denies sensory deficit [facility] Medical History: Medical History (Last Reviewed 05/21/21 @ 22:34 by Chelo Hsu MD) Cervicalgia COPD, severe Hypertension, essential Nephropathy Functional capacity: uses cane/walker Family History: Family History (Last Reviewed 05/21/21 @ 22:34 by Chelo Hsu MD) Father No problems noted. Mother No problems noted. Brother No problems noted. Brother No problems noted. Sister No problems noted. Daughter No problems noted. Daughter No problems noted. Son No problems noted. Son No problems noted. Son No problems noted. Son No problems noted. Son No problems noted. Surgical History: Surgical History (Last Reviewed 05/21/21 @ 22:34 by Chelo Hsu MD) History of cervical discectomy History of surgery Social History: Social History (Last Reviewed 05/21/21 @ 22:34 by Chelo Hsu MD) Living Situation History: Household Members: Significant Other Housing: Apartment Housing Other:: duplex Do you presently have visiting nurse or other home services: No Alcohol History: Alcohol intake: never Alcohol History Details: Alcohol intake frequency: a few times a month Tobacco History: Patient Tobacco Use Status: Former Tobacco user Tobacco use type: Cigarette Cigarette Packs Per Day: 2 Smoke Quit Date: 2007 Substance Use History: Use of substances other than those prescribed or required for medical reasons : No Currently Displaying Signs/Symptoms of Drug Intoxication Withdrawal: No Any prior treatment program specific to substance use: No Domestic Abuse History: Have you been hit, kicked, punched, or otherwise hurt by someone within the past year? If so, by whom?: No Do you feel safe in your current relationship?: No Is there a partner from a previous relationship who is making you feel unsafe now?: No Are you made to feel afraid or neglected: Yes Advance Directives: Advance Directives: No Advance Directives Information Provided: No Advance Directives Date on File: 04/13/21 Homicidal Assessment: Do you have thoughts of harming others: None Do you have a plan to hurt others: No Plan Nutrition Assessment: Recently lost weight without trying: Yes How much weight loss: Unsure Eating poorly because of decreased appetite: Yes Nutrition screen score: 5 Nutrition Risks: Poor intake 0-25% >4 days Patient : No : No Poor oral hygiene: No Occupation Assessmet: service: No Current occupational status: unemployed Current occupational status: retired Current occupational status: disabled Home Medications and Allergies Current Medications: Current Medications Acetaminophen (Acetaminophen 325 Mg Tablet) 650 mg PO Q6H PRN PRN Reason: Pain, Mild (Pain Scale 1-3) Last Admin: 05/24/21 18:52 Dose: 650 mg Documented by: Albuterol Sulfate (Albuterol Sulfate 90 Mcg 8 Gm Inhaler) 2 puff INHALE Q4H PRN PRN Reason: Shortness Of Breath Last Admin: 05/20/21 21:44 Dose: 2 puff Documented by: Albuterol/Ipratropium (Albuterol/Iprat 2.5/0.5mg 3 Ml Ampul.Neb) 3 ml INHALE RQ4H PRN PRN Reason: Shortness of Breath/Wheezing Last Admin: 05/27/21 08:04 Dose: 3 ml Documented by: Apixaban (Apixaban 5 Mg Tablet) 10 mg PO BID [facility] Stop: 06/02/21 21:01 Last Admin: 05/27/21 11:04 Dose: 10 mg Documented by: Fluticasone/Vilanterol (Fluticasone/Vilanterol 200/25 Blst.W.Dev) 1 puff INHALE DAILY [facility] Last Admin: 05/27/21 07:58 Dose: 1 puff Documented by: Hydrochlorothiazide (Hydrochlorothiazide 12.5 Mg Tablet) 12.5 mg PO DAILY [facility] Last Admin: 05/27/21 10:59 Dose: 12.5 mg Documented by: Hydroxyzine HCl (Hydroxyzine Hcl 25 Mg Tablet) 25 mg PO Q8H PRN PRN Reason: anxiety/restlessness Last Admin: 05/27/21 11:10 Dose: 25 mg Documented by: Levofloxacin (Levofloxacin 750 Mg Tablet) 750 mg PO Q24H [facility] Last Admin: 05/27/21 10:59 Dose: 750 mg Documented by: Lidocaine (Lidocaine 4 % Patch Adh..Patch) 1 patch TRANSDERMA DAILY [facility]; Protocol Last Admin: 05/27/21 11:03 Dose: 1 patch Documented by: Magnesium Oxide (Magnesium Oxide 400 Mg Tablet) 400 mg PO BIDPC [facility] Last Admin: 05/27/21 11:02 Dose: 400 mg Documented by: Melatonin (Melatonin 3 Mg Tablet) 6 mg PO BEDTIME PRN PRN Reason: Insomnia Last Admin: 05/26/21 20:33 Dose: 6 mg Documented by: Morphine Sulfate (Morphine Sulfate 2 Mg/Ml Cartridge) 2 mg IVPUSH Q3H PRN; Protocol PRN Reason: Pain, Moderate (Pain Scale 4-6 Last Admin: 05/24/21 20:03 Dose: 2 mg Documented by: Ondansetron HCl (Ondansetron Hcl 4 Mg/2 Ml Vial) 4 mg IVPUSH Q8H PRN PRN Reason: Nausea and Vomiting Oxycodone HCl (Oxycodone Hcl Immed Release 5 Mg Tablet) 5 mg PO Q6H PRN PRN Reason: pain Last Admin: 05/27/21 11:09 Dose: 5 mg Documented by: Pharmacy Consult (Consult Rx Perform Med Rec) 1 each MISCELLANE ONCE PRN PRN Reason: Consult order Pharmacy Consult (Consult Rx Vancomycin Dosing) 1 each MISCELLANE DAILY PRN PRN Reason: Consult order Sodium Chloride (0.9 % Sodium Chloride Flush 3 Ml Syringe) 3 ml IVFLUSH QSHIFT [facility] Last Admin: 05/27/21 10:59 Dose: Not Given Documented by: Tiotropium Clio (Tiotropium Clio 18 Mcg Cap.W.Dev) 1 puff INHALE RDAILY [facility] Last Admin: 05/27/21 07:58 Dose: 1 puff Documented by: Tizanidine HCl (Tizanidine Hcl 4 Mg Tablet) 2 mg PO DAILY PRN PRN Reason: for muscle spasm Last Admin: 05/26/21 20:32 Dose: 2 mg Documented by: Valsartan (Valsartan 160 Mg Tablet) 160 mg PO DAILY [facility] Last Admin: 05/27/21 10:59 Dose: 160 mg Documented by: Home Medications Medication Instructions Recorded Confirmed Type albuterol sulfate 90 mcg/actuation 2 puff INHALATION Q4H PRN 04/13/21 05/20/21 History aerosol inhaler (ProAir HFA) acetaminophen 650 mg 650 mg PO Q8H PRN 05/20/21 05/20/21 History tablet,extended release (Tylenol 8 Hour) irbesartan 300 1 tab PO DAILY 05/20/21 05/20/21 History mg-hydrochlorothiazide 12.5 mg tablet tiotropium bromide 18 mcg capsule 1 cap INHALATION BEDTIME 05/20/21 05/20/21 History with inhalation device (Spiriva with HandiHaler) Allergies Allergy/AdvReac Type Severity Reaction Status Date / Time No Known Allergies Allergy Verified 05/05/21 09:29 Exam Vital signs: Vital Signs Temp 96 F L 05/27/21 11:16 Pulse 110 H 05/27/21 11:16 Resp 20 05/27/21 11:16 BP 160/83 H 05/27/21 11:16 Pulse Ox 95 05/27/21 11:16 Intake & Output 05/26/21 05/27/21 05/27/21 18:59 06:59 18:59 Intake Total 480 / 1060 580 / 1060 Output Total 250 / 950 700 / 950 Balance 230 / 110 -120 / 110 Urine Output (Average ml/kg/hr) 0.37 0.90 0.90 Intake: Intake, Oral Amount 480 / 1060 580 / 1060 Output: Output, Urine Amount 250 / 850 600 / 850 Output, Stool Amount 100 / 100 Other: Meal Refused No NPO No Breakfast % Eaten 75% Lunch % Eaten 75% Dinner % Eaten 50% Number of Bowel Movements 1 1 Urine Bedside Commode Bedpan Urine Color Yellow Yellow Last Bowel Movement 05/27/21 Stool Bedside Commode Bedpan Stool Amount Scant Small Stool Color Brown Yellow Stool Consistency Soft Watery Weight 55.8 kg Body Mass Index 21.1 - Constitutional Present: moderate distress - Routine HEENT Exam Head: Present: normal inspection, normocephalic - Routine Respiratory Exam Present: decreased breath sounds - Routine Cardiovascular Exam Cardiovascular: Present: RRR, S1, S2 - Routine Abdominal Exam Present: diminished bowel sounds, nontender Data - Labs CBC & Chem 7: 05/27/21 05:58 05/27/21 05:58 Labs: 05/20/21 15:43 Vital Signs Q2HR 05/20/21 15:44 Piperacillin Sodium/Tazobactam [Zosyn] 4.5 gm 0.9 % Sodium Chloride [Ns] 100 ml IV ONCE 05/20/21 15:45 XR chest 1V Stat 0.9 % Sodium Chloride [Ns] 1,000 ml IV 999 mls/hr 05/20/21 16:00 Basic Metabolic Panel Stat Bilirubin Total Stat Complete Blood Count Auto Diff Stat Lactic Acid Stat Partial Thromboplastin Time Stat Prothrombin Time INR Stat SLIDE REVIEW Stat Blood Culture X2 [BC] Stat 05/20/21 16:05 Piperacillin Sodium/Tazobactam [Zosyn] 4.5 gm IV .STK-MED ONE 05/20/21 16:08 Acetaminophen [Tylenol] 975 mg PO ONCE ONE vancomycin HCL 1,000 mg 0.9 % Sodium Chloride [Ns] 250 ml IV ONCE 05/20/21 16:22 vancomycin HCL 1,000 mg .ROUTE .STK-MED ONE 05/20/21 17:33 COVID-19 ID NOW (Love) Stat 05/20/21 18:03 oxyCODONE HCl Immed Release [Roxicodone] 5 mg PO Q6H PRN 05/20/21 18:30 Lactated Ringers [Lr] 1,000 ml IV 999 mls/hr 05/20/21 18:57 ~Lactic Acid-LAB USE ONLY Stat 05/20/21 19:33 IV insert/maintain DAILY@1000,2200 Intake and Output Q8HR Vital Signs QSHIFT 05/20/21 19:37 Regular Diet 05/20/21 19:45 0.9 % Sodium Chloride [Ns] 1,000 ml IVCONT 100 mls/hr 05/20/21 20:00 Enoxaparin Sodium [Lovenox] 40 mg SUBCUT Q24H 05/20/21 20:22 Acetaminophen [Tylenol] 650 mg PO Q8H PRN 05/20/21 21:33 Piperacillin Sodium/Tazobactam [Zosyn] 3.375 gm IV .STK-MED ONE 05/20/21 22:00 Piperacillin Sodium/Tazobactam [Zosyn] 3.375 gm 0.9 % Sodium Chloride [Ns] 50 ml IV Q6H 05/21/21 04:57 Piperacillin Sodium/Tazobactam [Zosyn] 3.375 gm IV .STK-MED ONE 05/21/21 06:24 Basic Metabolic Panel DAILY@0600 Complete Blood Count Auto Diff DAILY@0600 SLIDE REVIEW Routine 05/21/21 09:00 hydroCHLOROthiazide [Microzide] 1 mg PO DAILY 05/21/21 09:19 Regular Diet 05/21/21 10:57 Piperacillin Sodium/Tazobactam [Zosyn] 3.375 gm IV .STK-MED ONE 05/21/21 15:34 Piperacillin Sodium/Tazobactam [Zosyn] 3.375 gm IV .STK-MED ONE 05/21/21 16:55 vancomycin HCL 1,000 mg .ROUTE .STK-MED ONE 05/21/21 17:00 vancomycin HCL 1,000 mg 0.9 % Sodium Chloride [Ns] 250 ml IV Q24H 05/21/21 17:24 vancomycin HCL 1,000 mg .ROUTE .STK-MED ONE 05/21/21 21:24 Piperacillin Sodium/Tazobactam [Zosyn] 3.375 gm IV .STK-MED ONE 05/22/21 04:50 Piperacillin Sodium/Tazobactam [Zosyn] 3.375 gm IV .STK-MED ONE 05/22/21 05:56 Complete Blood Count no Diff DAILY@0600 Comprehensive [place]. 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 Stat US venous duplex UE RT Stat 05/23/21 03:43 Piperacillin Sodium/Tazobactam [Zosyn] 3.375 gm IV .STK-MED ONE 05/23/21 08:44 Creatinine Stat Magnesium Stat 05/23/21 10:18 Magnesium Sulfate/H2O 2 gm in 50 ml IV ONCE 05/23/21 10:25 Piperacillin Sodium/Tazobactam [Zosyn] 3.375 gm IV .STK-MED ONE 05/23/21 10:50 Complete Blood Count Man Dif Stat 05/23/21 15:16 Lidocaine HCl 1 % MPF [Xylocaine 1 % MPF] 5 ml .ROUTE .STK-MED ONE 05/23/21 15:21 Piperacillin Sodium/Tazobactam [Zosyn] 3.375 gm IV .STK-MED ONE 05/23/21 15:56 Naloxone HCl [Narcan] 0.4 mg .ROUTE .STK-MED ONE fentaNYL citrate/PF [Sublimaze] 100 mcg .ROUTE .STK-MED ONE 05/23/21 15:57 Midazolam HCl/PF [Versed] 2 mg .ROUTE .STK-MED ONE flumazeniL [Romazicon] 0.05 mg .ROUTE .STK-MED ONE 05/23/21 16:46 hydrOXYzine HCL [Atarax] 25 mg PO ONCE ONE 05/23/21 17:28 Vital Signs Q30M 05/23/21 18:01 Lidocaine HCl 1 % MPF [Xylocaine 1 % MPF] 10 ml SUBCUT ONCE ONE 05/23/21 18:11 Piperacillin Sodium/Tazobactam [Zosyn] 3.375 gm IV .STK-MED ONE 05/23/21 20:00 Enoxaparin Sodium [Lovenox] 55 mg SUBCUT Q12H 05/23/21 22:17 Piperacillin Sodium/Tazobactam [Zosyn] 3.375 gm IV .STK-MED ONE 05/23/21 23:25 Piperacillin Sodium/Tazobactam [Zosyn] 3.375 gm IV .STK-MED ONE 05/24/21 04:37 Piperacillin Sodium/Tazobactam [Zosyn] 3.375 gm IV .STK-MED ONE 05/24/21 05:15 Dextrose 5 % and 0.45 % NaCl [D51/2Ns] 1,000 ml IVCONT 80 mls/hr 05/24/21 06:26 Complete Blood Count Man Dif Routine Comprehensive [place]. Panel Fast DAILY@0600 05/24/21 08:12 Piperacillin Sodium/Tazobactam [Zosyn] 3.375 gm IV .STK-MED ONE 05/24/21 17:00 Piperacillin Sodium/Tazobactam [Zosyn] 3.375 gm IV .STK-MED ONE 05/24/21 20:59 Piperacillin Sodium/Tazobactam [Zosyn] 3.375 gm IV .STK-MED ONE 05/25/21 03:23 Piperacillin Sodium/Tazobactam [Zosyn] 3.375 gm IV .STK-MED ONE 05/25/21 07:49 Basic Metabolic Panel Routine Complete Blood Count no Diff Routine Magnesium Routine 05/25/21 10:02 Potassium Chloride Packet [Klor-Con Packet] 40 meq PO ONCE ONE 05/26/21 06:54 BMP [Basic Metabolic Panel Fasting] Routine Complete Blood Count no Diff AM Magnesium Routine 05/26/21 08:42 Type and Screen Routine 05/27/21 05:58 BMP [Basic Metabolic Panel Fasting] Routine Complete Blood Count no Diff AM Magnesium Routine Laboratory Last Values WBC 11.5 X10*3/uL (4.8-10.8) H 05/27/21 05:58 RBC 2.45 X10*6/uL (4.20-5.50) L 05/27/21 05:58 Hgb 7.7 g/dl (12.0-16.0) L 05/27/21 05:58 Hct 22.6 % (37-47) L 05/27/21 05:58 MCV 92.2 fL (80-98) 05/27/21 05:58 MCH 31.4 pg (27.0-33.0) 05/27/21 05:58 MCHC 34.1 g/dl (31.0-35.0) 05/27/21 05:58 RDW 13.2 % (11.0-16.0) 05/27/21 05:58 Plt Count 248 X10*3/uL (160-400) D 05/27/21 05:58 MPV 10.0 fL (9.4-12.3) 05/27/21 05:58 Immature Gran % (Auto) Cancelled 05/24/21 06:26 Neut % (Auto) Cancelled 05/24/21 06:26 Lymph % (Auto) Cancelled 05/24/21 06:26 Callahan % (Auto) Cancelled 05/24/21 06:26 Eos % (Auto) Cancelled 05/24/21 06:26 Baso % (Auto) Cancelled 05/24/21 06:26 Lymph # (Auto) Cancelled 05/24/21 06:26 Callahan # (Auto) Cancelled 05/24/21 06:26 Eos # (Auto) Cancelled 05/24/21 06:26 Baso # (Auto) Cancelled 05/24/21 06:26 Abs Immat Gran (auto) Cancelled 05/24/21 06:26 Absolute Neuts (auto) Cancelled 05/24/21 06:26 Absolute Nucleated RBC 0.040 X10*3/uL (0.0-0.012) H 05/27/21 05:58 Nucleated RBC % (auto) 0.3 /100WBC (0.0-0.2) H 05/27/21 05:58 Neutrophils % (Manual) 52 % (45-73) 05/24/21 06:26 Band Neutrophils % 11 % (3-5) H 05/24/21 06:26 Lymphocytes % (Manual) 18 % (20-40) L 05/24/21 06:26 Monocytes % (Manual) 17 % (2-11) H 05/24/21 06:26 Metamyelocytes % 1 % 05/24/21 06:26 Myelocytes % 1 % 05/24/21 06:26 Promyelocytes % 1 % 05/23/21 10:50 Abs Neuts (Manual) 3.7 X10*3/uL (2.2-7.9) 05/24/21 06:26 Lymphocytes # (Manual) 1.0 X10*3/uL (0.6-4.8) 05/24/21 06:26 Monocytes # (Manual) 1.0 X10*3/uL (0.0-1.2) 05/24/21 06:26 Metamyelocytes # 0.1 X10*3/uL 05/24/21 06:26 Myelocytes # 0.1 X10*/uL 05/24/21 06:26 Promyelocytes # 0.1 X10*3/uL 05/23/21 10:50 Toxic Granulation PRESENT 05/24/21 06:26 Platelet Estimate DECREASED (NORMAL) 05/24/21 06:26 Plt Morphology Comment NORMAL 05/24/21 06:26 RBC Morphology NOTED 05/24/21 06:26 Microcytosis 1+ (5-14) /OIF 05/24/21 06:26 Smear Tech's Comments VERIFIED 05/21/21 06:24 Smear Path Review SEE NOTE 05/26/21 06:54 PT 12.5 SEC (9.9-13.0) 05/20/21 16:00 INR 1.1 (0.9-1.1) 05/20/21 16:00 APTT 25.1 SEC (24.1-38.0) 05/20/21 16:00 Sodium 141 mmol/L (135-145) 05/27/21 05:58 Potassium 3.4 mmol/L (3.3-5.1) 05/27/21 05:58 Chloride 104 mmol/L (96-108) 05/27/21 05:58 Carbon Dioxide 22 mmol/L (22-29) 05/27/21 05:58 Anion Gap 18 (12-20) 05/27/21 05:58 BUN 10 mg/dL (9-16) 05/27/21 05:58 Creatinine 0.81 mg/dL (0.5-1.4) 05/27/21 05:58 Estim Creat Clear Calc 51.8 05/27/21 05:58 Estimated GFR > 60 05/27/21 05:58 Random Glucose 112 mg/dL (60-115) 05/25/21 07:49 Fasting Glucose 100 mg/dL (60-99) H 05/27/21 05:58 Lactic Acid 2.1 mmol/L (0.5-2.0) H* 05/20/21 16:00 Lactic Acid Fup @ 2Hr 1.6 mmol/L (0.5-2.0) 05/20/21 18:57 Calcium 8.8 mg/dL (8.4-10.2) 05/27/21 05:58 Magnesium 1.3 mg/dL (1.6-2.6) L* 05/27/21 05:58 Total Bilirubin 0.4 mg/dL (0.0-1.0) 05/24/21 06:26 AST 14 U/L (5-31) 05/24/21 06:26 ALT 11 U/L (0-31) 05/24/21 06:26 Alkaline Phosphatase 80 U/L (39-117) 05/24/21 06:26 Total Protein 5.5 g/dL (6.5-8.0) L 05/24/21 06:26 Albumin 3.1 g/dL (3.5-5.0) L 05/24/21 06:26 Urine Color STRAW 05/20/21 17:39 Urine Appearance HAZY 05/20/21 17:39 Urine pH 5.5 (5.0-8.0) 05/20/21 17:39 Ur Specific [place] 1.010 (1.005-1.025) 05/20/21 17:39 Urine Protein TRACE MG/DL (NEG-TRACE) 05/20/21 17:39 Urine Glucose (UA) NEG MG/DL (NEG) 05/20/21 17:39 Urine Ketones NEG MG/DL (NEG) 05/20/21 17:39 Urine Blood TRACE (NEG) 05/20/21 17:39 Urine Nitrite NEG (NEG) 05/20/21 17:39 Ur Leukocyte Esterase NEG (NEG) 05/20/21 17:39 Urine RBC 0-2 /HPF (0) 05/20/21 17:39 Urine WBC 0-2 /HPF (0-4) 05/20/21 17:39 Ur Squamous Epith Cells 3+ /LPF 05/20/21 17:39 Amorphous Sediment 1+ /LPF 05/20/21 17:39 Urine Bacteria TRACE /LPF 05/20/21 17:39 Vancomycin Trough 8.7 mcg/mL (10.0-20.0) L 05/22/21 16:02 COVID-19 (MICHAEL) Negative (Negative) 05/20/21 17:33 COVID-19 Clin Com See Note 05/20/21 17:33 Blood Type O Positive 05/26/21 08:42 Antibody Screen NEGATIVE 05/26/21 08:42 Crossmatch See Detail 05/26/21 08:42 - Imaging Radiologist's impression: ITS Impressions Chest X-Ray 05/20/21 15:45 IMPRESSION: Refer to a recent CT for better visualization of an encasing lesion in the left upper mediastinum. A right-sided CT compatible chest port terminates overlying the area of the innominate veins. Correlate for appropriate functioning and if indicated consider further advancement. Clear lungs. Venous Duplex 05/23/21 11:50 IMPRESSION: 1. Positive for deep venous thrombosis right subclavian vein and right internal jugular vein. 2. Right axillary vein and right ulnar vein are not visualized and cannot assess for additional thrombus. 3. Right brachial, basilic, cephalic, and radial veins are patent. Tunnelled Catheter Removal 05/23/21 17:45 IMPRESSION: Right internal jugular Port-A-Cath removal. Assessment and Plan Patient Active problem list reviewed?: Yes (1) Small cell lung carcinoma Status: Acute Assessment and plan: 1. This is a 76-year-old woman with locally advanced small cell lung cancer. She started treatment with chemotherapy, carboplatin and etoposide on 05/09/2021. She presented on 05/20/21 with port site infection and right upper extremity DVT related to MediPort. Blood cultures positive for Pseudomonas aeruginosa. Port-A-Cath has been removed, she received IV antibiotics for a few days and is a now she is on Eliquis for right upper extremity DVT. She was in the process of starting radiation therapy. However in the last few days she has declined considerably. Unfortunately, she does not have any help at home in her care. A son is her healthcare proxy. Her performance status is now very poor and she has decided to forego all treatments for her cancer and receive hospice care. She is awaiting placement at an inpatient facility for hospice care. I have advised the patient that she can call if she has any further concerns re lated to her health. Thank you. - Time Spent With Patient Time Spent with Patient (in minutes): 30
--- NOTE | 2021-05-27 16:30 | MHC.CM.PN ---
DC PLAN IS [facility] AT [facility] FOR [facility]ICE CARE Sunday05/28/21. BLS TRANSPORT BOOKED ON HOLD [facility] WILL ARRANGE HOSPICE ONCE PT IS ADMITTED
[2021-05-27] MEDS: Melatonin 3 MG TABLET 6 MG PO (22:10)
[2021-05-28] MEDS: oxyCODONE HCl Immed Release 5 MG TABLET PO ×2 (02:31→08:46)
[2021-05-28 03:28] VITALS: BP 146/65; PULSE 96; RESP 18; TEMP 37.2; O2SAT 93
[2021-05-28 06:27] VITALS: PULSE 108; O2SAT 90
[2021-05-28] MEDS: Albuterol Sulfate 90 MCG 8 GM INHALER 2 PUFF INHALE (06:30)
[2021-05-28 07:16] VITALS: BP 151/62; PULSE 10; RESP 16; TEMP 36.9; O2SAT 96
[2021-05-28] MEDS: Fluticasone/Vilanterol 200/25 BLST.W.DEV 1 PUFF INHALE (08:12)
[2021-05-28 08:15] VITALS: PULSE 108; O2SAT 90
[2021-05-28] MEDS: Apixaban 5 MG TABLET 10 MG PO (08:44)
[2021-05-28] MEDS: hydroCHLOROthiazide 12.5 MG TABLET PO (08:44)
[2021-05-28 08:46] VITALS: BP 151/62; PULSE 98
[2021-05-28] MEDS: Valsartan 160 MG TABLET PO (08:46)
[2021-05-28] MEDS: Lidocaine 4 % Patch ADH..PATCH 1 PATCH TRANSDERMA (08:47)
[2021-05-28] MEDS: Magnesium Oxide 400 MG TABLET PO (08:47)
--- NOTE | 2021-05-28 09:38 | PM.DS ---
DS: Providers Provider Date of Service: 05/28/21 Date of admission: 05/20/21 19:33 Primary care physician: Unknown Physician Consults: 05/20/21 19:33 Consult to Infectious Diseases Routine Consulting Provider: Chelo Hsu Reason for consultation: fever Has provider been notified: No 05/22/21 06:17 Consult to Crisis Stat Reason for consultation: suicidal Has provider been notified: No 05/24/21 13:03 Consult to Hematology / Oncology Routine Consulting Provider: Emily Sheppard Reason for consultation: SCCA w/DVT RUE DS: Diagnosis Discharge Diagnosis (1) Small cell lung carcinoma: Status: Acute DS: Summary Hospital Course Hospital Course: patient was admitted for infected venous access port complicated by neuropenia, pseudomonas bacteremia, and right subclavian/IJ DVT. she was treated with IV zosyn, blood cultures are negative from 05/25/21. port was removed 05/23/21, she was seen by ID who recommended 3 weeks po levaquin (to complete june 09, 2021). for her DVT, she had significant painful RUE swelling, which has been improving, she was initially started on therapeutic lovenox, this has been transisitioned to [facility]. she will be loaded with 10mg bid for 7 days total and then decrease to 5mg bid. her neutropenia was due to recent chemo and by time of discharge had resolved. she was also noted to have significant anemia, hgb 7-8. likely inflammatory, did not receive transfusion while in hospital. goals of care discussion was had with patient. she expressed that she no longer wanted to pursue disease directed treatment and has opted to transition to hospice care at SNF. Time Spent with Patient Time attestation: Total time spent providing and/or coordinating discharge services: Discharge coordination time: Greater than 30 minutes Quality: Stroke Does the patient have a stroke diagnosis?: No Physical Exam Vital Signs: Vital Signs: Last Vital Signs Temp 98.4 F 05/28/21 07:16 Pulse 98 05/28/21 08:46 Resp 16 05/28/21 07:16 BP 151/62 H 05/28/21 08:46 Pulse Ox 96 05/28/21 07:16 Body Mass Index 21.1 General: AO X 3, no acute distress, ill appearing Resp:? CTA bilateral, no accessory muscles used CVS: S1,S2,RRR GI: soft, non tender, non distended Neuro:? motor grossly intact, alert Psych: appropriate affect, appropriate insight? RUE swelling improving chest wall: some erythema over removed port site DS: Data Data Completed and Pending Completed studies during hospitalization [Text1]: Procedures Drainage of Left Lung, Via Natural or Artificial Opening Endoscopic, Diagnostic (04/13/21) Extraction of Left Upper Lung Lobe, Via Natural or Artificial Opening Endoscopic, Diagnostic (04/13/21) Labs on day of discharge: Preliminary micro results at discharge 05/25/21 07:55 Blood Culture - Preliminary Blood - Venous No growth after 48 hours. 05/25/21 07:55 Blood Culture - Preliminary Blood - Venous No growth after 48 hours. Discharge Plan Discharge Patient Disposition: [facility] Discharge Diagnosis: pseudomonas bacteremia, dvt Referrals: Physician,Unknown J [Primary Care Provider] - 1 Week Discharge Medications: New levofloxacin 750 mg Tablet 750 mg PO Q24H Qty: 12 RF: 0 Eliquis 5 mg Tablet 10 mg PO BID Qty: 90 RF: 0 oxycodone 5 mg Tablet 5 mg PO Q6H PRN (Reason: pain) Qty: 15 RF: 0 Continued budesonide-formoterol [Symbicort] 160-4.5 mcg/actuation HFA aerosol inhaler 2 puff PO BID Qty: 10.2 RF: 2 albuterol sulfate [ProAir HFA] 90 mcg/actuation HFA aerosol inhaler 2 puff inhalation Q4H PRN (Reason: Shortness Of Breath) RF: 0 irbesartan-hydrochlorothiazide 300-12.5 mg tablet 1 tab PO DAILY RF: 0 Spiriva with HandiHaler 18 mcg capsule, w/inhalation device 1 cap inhalation BEDTIME RF: 0 acetaminophen [Tylenol 8 Hour] 650 mg Tablet Extended Release 650 mg PO Q8H PRN (Reason: Pain) RF: 0 tizanidine 2 mg tablet 2 mg PO DAILY PRN (Reason: for muscle spasm) Qty: 90 RF: 0 Discharge Orders: Discharge Order (Routine); Ordered 05/28/21 Ordered By: Brandon Cotton Diet: advance to usual diet Activity on Discharge: As tolerated Stand Alone Forms: Patient Portal Discharge page Care Plan Goals: comfort Health Concerns: RUE DVT, pseudomonas bacteremia, SCLC Plan of Treatment: eliquis 10mg bid for 6 more days then decrease to 5mg bid, levaquin until june 09, 2021. hospice care Assessment: see above
[2021-05-28] MEDS: levoFLOXacin 750 MG TABLET PO (11:10)
--- NOTE | 2021-05-28 12:31 | MHC.CM.PN ---
Patient will dc to [facility] today, via BLS (set up for noon p/u).
== END 2021-05-28 13:56 | disposition skilled nursing facility (03) | DRG 252 ==
LOC: HO.ED 19:36 → HO.EDOVER 19:48 → HO.IMC 19:57
PROVIDERS: Radiology Diagnostic Radiology; Admitting Provider Hospitalist; Emergency Provider Emergency Medicine; Visit Provider Internal Medicine
PROC: 05PY03Z Removal of Infusion Device from Upper Vein, Open Approach (ICD-10-PCS; CPT 36590; principal; 2021-05-23 15:10)
DX: T80.211A Bloodstream infection due to central venous catheter, initial encounter (principal); A41.52 Sepsis due to Pseudomonas; L03.313 Cellulitis of chest wall; C34.90 Malignant neoplasm of unspecified part of unspecified bronchus or lung; D61.818 Other pancytopenia; R45.851 Suicidal ideations; I82.621 Acute embolism and thrombosis of deep veins of right upper extremity; T82.868A Thrombosis due to vascular prosthetic devices, implants and grafts, initial encounter; Z20.822 Contact with and (suspected) exposure to COVID-19; Z87.891 Personal history of nicotine dependence; Z79.01 Long term (current) use of anticoagulants; Z79.899 Other long term (current) drug therapy
CPT/HCPCS: 36415; 36589; 36590; 71045; 80048; 80053; 80202; 81001; 82247; 82565; 83605; 83735; 85007; 85025; 85027; 85610; 85730; 86850; 86900; 86901; 86923; 87040; 87071; 87073; 87077; 87186; 87205; 87635; 93971; 94640; 96361; 96374; 96375; 97110; 97163; 99152; 99153; 99285; J1650; J2270; J2543; J3370; J3475